=== PATIENT | male | born 1960 | race American Indian/Alaskan Native ===

== ENCOUNTER 2016-07-22 16:34 | Emergency (ER) | payer MEDICARE, MEDICAID ==
[2016-07-22 16:50] VITALS: BP 130/80
[2016-07-22] MEDS ORDERED: Lidocaine 1% 30 ML SDV INJECT ONE (16:52)
[2016-07-22] MEDS ORDERED: Bacitracin Oint 1 GM U/D Packet TOP ONE (16:52)
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
== END 2016-07-22 17:36 | disposition home or self-care (01) ==
LOC: DL.ED 16:34
DX: S61.411A Laceration without foreign body of right hand, initial encounter (principal); E78.00 Pure hypercholesterolemia, unspecified; I10 Essential (primary) hypertension; F41.9 Anxiety disorder, unspecified; E03.9 Hypothyroidism, unspecified; Z79.899 Other long term (current) drug therapy; E66.9 Obesity, unspecified; Z88.8 Allergy status to other drugs, medicaments and biological substances; Y04.0XXA Assault by unarmed brawl or fight, initial encounter
CPT/HCPCS: 12001; 99282

== ENCOUNTER 2017-02-17 09:04 | Inpatient (IN) | payer MEDICARE, MEDICAID ==
[2017-02-17] MEDS: Sodium Chloride 0.9% 10 ML Syringe FLUSH PRN (09:22)
--- NOTE | 2017-02-17 09:38 | EDM.PDOC ---
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 Staff states yesterday he had some nausea and vomiting. He has had a cough, and fever today. Patient has a history of blood clots and takes Xarelto daily. Onset: Gradual Onset Date: 02/16/17 Location: Reports: Chest Quality: Reports: Dull Severity: Mild Improves with: Reports: None Worsens with: Reports: None Associated Symptoms: Reports: Fever/Chills, Nausea/Vomiting, Shortness of Breath - Related Data Allergies Allergy/AdvReac Type Severity Reaction Status Date / Time cefprozil [From Cefzil] Allergy Cannot Verified 07/22/16 17:26 Remember Cephalosporins Allergy Cannot Verified 07/22/16 17:26 Remember haloperidol [From Haldol] Allergy Cannot Verified 07/22/16 17:26 Remember haloperidol lactate Allergy Cannot Verified 07/22/16 17:26 [From Haldol] Remember Home Meds: Home Meds LORazepam [Ativan] 0.5 mg PO BID 11/06/13 [History] Levothyroxine [Synthroid] 100 mcg PO DAILY 11/06/13 [History] OLANZapine [ZyPREXA Zydis] 10 mg PO BEDTIME 11/06/13 [History] atorvaSTATin [Lipitor] 10 mg PO BEDTIME 11/06/13 [History] levETIRAcetam [Keppra] 1,000 mg PO BID 11/06/13 [History] levOCARNitine [l-Carnitine] 500 mg PO DAILY 11/06/13 [History] Rivaroxaban [Xarelto] 20 mg PO DAILY #30 tablet 06/12/14 [Rx] Escitalopram [Lexapro] 1 tab PO BEDTIME 07/22/16 [History] Fluticasone Propionate [Flonase] 1 spray INH ASDIRECTED PRN 07/22/16 [History] metFORMIN HCl [Metformin HCl] 1 tab PO BID 07/22/16 [History] Methylcellulose [Citrucel SF] 1 tbsp PO DAILY 02/17/17 [History] Past Medical History HEENT History: Reports: Other (See Below) Other HEENT History: presbyopia Cardiovascular History: Reports: High Cholesterol, Hypertension Respiratory History: Reports: PE, Sleep Apnea Neurological History: Reports: Seizure, Other (See Below) Psychiatric History: Reports: Anxiety, Other (See Below) Other Psychiatric History: disruptive behavior disorder Endocrine/Metabolic History: Reports: Hypothyroidism, Obesity/BMI 30+ Social & Family History - Family History Family Medical History: Unobtainable - Tobacco Use Smoking Status *Q: Never Smoker Second Hand Smoke Exposure: No - Caffeine Use Caffeine Use: Reports: Coffee, Soda - Alcohol Use Days Per Week of Alcohol Use: 0 - Recreational Drug Use Recreational Drug Use: No - Living Situation & Occupation Living situation: Reports: Single, Extended Care Facility Occupation: Disabled ED ROS GENERAL - Review of Systems Review Of Systems: ROS reveals no pertinent complaints other than HPI. ED EXAM, GENERAL - Physical Exam Exam: See Below Exam Limited By: No Limitations General Appearance: Alert, WD/WN, No Apparent Distress Eye Exam: Bilateral Eye: Normal Inspection Ears: Normal External Exam, Hearing Grossly Normal Nose: Normal Inspection Throat/Mouth: Normal Inspection, Normal Voice, No Airway Compromise Head: Atraumatic, Normocephalic Neck: Normal Inspection, Supple, Non-Tender, Full Range of Motion Respiratory/Chest: No Respiratory Distress, Lungs Clear, Normal Breath Sounds, No Accessory Muscle Use Cardiovascular: Normal Peripheral Pulses, Regular Rate, Rhythm, No Edema, No Gallop, No JVD, No Murmur, No Rub Peripheral Pulses: 2+: Radial (L), Radial (R) GI/Abdominal: Normal Bowel Sounds, Soft, Non-Tender, No Organomegaly, No Distention, No Abnormal Bruit, No Mass (Male) Exam: Deferred Rectal (Males) Exam: Deferred Back Exam: Normal Inspection, Full Range of Motion Extremities: Normal Inspection, Normal Range of Motion, Non-Tender, No Pedal Edema, Normal Capillary Refill Neurological: Alert, Oriented, Normal Cognition, Normal Gait, No Motor/Sensory Deficits Psychiatric: Normal Mood, Flat Affect Skin Exam: Warm, Dry, Intact, Normal Color, No Rash Lymphatic: No Adenopathy EKG INTERPRETATION Rhythm: NSR [place]: Normal P-Wave: Present QRS: Normal ST-T: Normal QT: Normal Comparison: NA - No Prior EKG Course - Vital Signs Last Recorded V/S: Last Vital Signs Temp 100.2 F 02/17/17 10:26 Pulse 102 H 02/17/17 09:05 Resp 32 H 02/17/17 09:05 BP 120/79 02/17/17 09:05 Pulse Ox 91 L 02/17/17 09:05 - Orders/Labs/Meds Orders: Active Orders 24 hr Category Date Time Status EKG Documentation Completion [RC] STAT Care 02/17/17 09:17 Active Peripheral IV Care [RC] . DIRECTED Care 02/17/17 09:17 Active Chest 2V [CR] Urgent Exams 02/17/17 09:17 Taken UA W/MICROSCOPIC [URIN] Stat Lab 02/17/17 09:17 Uncollected Levofloxacin/Dextrose 5%-Water [Levaquin in D5W 750 MG/ Med 02/17/17 10:09 Active 150 ML] 750 mg Premix Bag 1 bag IV ONETIME Sodium Chloride 0.9% [Saline Flush] Med 02/17/17 09:16 Active 10 ml FLUSH ASDIRECTED PRN Peripheral IV Insertion Adult [OM.PC] Stat Oth 02/17/17 09:16 Ordered Medication Orders Levofloxacin/Dextrose 750 mg/ (Premix) 150 mls @ 100 mls/hr IV ONETIME ONE Stop: 02/17/17 11:38 Last Admin: 02/17/17 10:28 Dose: 100 mls/hr Sodium Chloride (Saline Flush) 10 ml FLUSH ASDIRECTED PRN PRN Reason: Keep Vein Open Last Admin: 02/17/17 09:22 Dose: 10 ml Labs: Laboratory Tests 02/17/17 02/17/17 02/17/17 Range/Units 09:22 09:22 09:22 WBC 12.8 H (5.0-10.0) 10^3/uL RBC 5.21 (4.6-6.2) 10^6/uL Hgb 16.2 (14.0-18.0) g/dL Hct 47.2 (40.0-54.0) % MCV 90.6 D (80-100) fL MCH 31.1 (27.0-34.0) pg MCHC 34.3 (33.0-35.0) g/dL Plt Count 163 (150-450) 10^3/uL Neut % (Auto) 83.5 H (42.2-75.2) % Lymph % (Auto) 8.8 L (20.5-50.1) % [place] % (Auto) 7.4 (2-8) % Eos % (Auto) 0.1 L (1.0-3.0) % Baso % (Auto) 0.2 (0.0-1.0) % D-Dimer, Quantitative (0-400) ng/mL Sodium 135 (135-145) mmol/L Potassium 3.8 (3.6-5.0) mmol/L Chloride 103 (101-111) mmol/L Carbon Dioxide 21.0 (21.0-31.0) mmol/L Anion Gap 14.8 BUN 26 H (7-18) mg/dL Creatinine 1.0 (0.6-1.3) mg/dL Est Cr Clr Drug Dosing 82.48 mL/min Estimated GFR (MDRD) > 60 BUN/Creatinine Ratio 26.00 Glucose 169 H (74-105) mg/dL Lactic Acid 1.3 (0.5-2.2) mmol/L Calcium 8.7 (8.4-10.2) mg/dl Total Bilirubin 1.2 H (0.2-1.0) mg/dL AST 28 (10-42) IU/L ALT 29 (10-60) IU/L Alkaline Phosphatase 66 (42-121) IU/L Troponin I < 0.02 (0.00-0.02) ng/ml Total Protein 7.4 (6.7-8.2) g/dl Albumin 4.2 (3.2-5.5) g/dl Globulin 3.2 Albumin/Globulin Ratio 1.31 02/17/17 Range/Units 09:22 WBC (5.0-10.0) 10^3/uL RBC (4.6-6.2) 10^6/uL Hgb (14.0-18.0) g/dL Hct (40.0-54.0) % MCV (80-100) fL MCH (27.0-34.0) pg MCHC (33.0-35.0) g/dL Plt Count (150-450) 10^3/uL Neut % (Auto) (42.2-75.2) % Lymph % (Auto) (20.5-50.1) % [place] % (Auto) (2-8) % Eos % (Auto) (1.0-3.0) % Baso % (Auto) (0.0-1.0) % D-Dimer, Quantitative 179 (0-400) ng/mL Sodium (135-145) mmol/L Potassium (3.6-5.0) mmol/L Chloride (101-111) mmol/L Carbon Dioxide (21.0-31.0) mmol/L Anion Gap BUN (7-18) mg/dL Creatinine (0.6-1.3) mg/dL Est Cr Clr Drug Dosing mL/min Estimated GFR (MDRD) BUN/Creatinine Ratio Glucose (74-105) mg/dL Lactic Acid (0.5-2.2) mmol/L Calcium (8.4-10.2) mg/dl Total Bilirubin (0.2-1.0) mg/dL AST (10-42) IU/L ALT (10-60) IU/L Alkaline Phosphatase (42-121) IU/L Troponin I (0.00-0.02) ng/ml Total Protein (6.7-8.2) g/dl Albumin (3.2-5.5) g/dl Globulin Albumin/Globulin Ratio Meds: Medications Generic Name Dose Route Start Last Admin Trade Name Freq PRN Reason Stop Dose Admin Levofloxacin/Dextrose 750 mg/ 150 mls @ 100 mls/hr 02/17/17 10:09 02/17/17 10 :28 Premix IV 02/17/17 11:38 100 mls/hr ONETIME ONE Administration Sodium Chloride 10 ml 02/17/17 09:16 02/17/17 09:22 Saline Flush FLUSH 10 ml ASDIRECTED PRN Administration Keep Vein Open - Radiology Interpretation Free Text/Narrative:: Chest xray: RLL pneumonia See rad report - Re-Assessments/Exams Free Text/Narrative Re-Assessment/Exam: 02/17/17 11:01 Discussed patient case with Dr. Haque. He agreed to admit the patient to inpatient medical floor for pneumonia. Departure - Departure Time of Disposition: 10:45 Disposition: Admitted As Inpatient 66 Condition: Fair Clinical Impression: Pneumonia Qualifiers: Pneumonia type: due to unspecified organism Laterality: right Lung location: lower lobe of lung Qualified Code(s): J18.1 - Lobar pneumonia, unspecified organism Forms: ED Department Discharge Additional Instructions: RX: Levaquin Follow up with your primary care facility next week - My Orders Last 24 Hours: My Active Orders 02/17/17 09:16 Sodium Chloride 0.9% [Saline Flush] 10 ml FLUSH ASDIRECTED PRN Peripheral IV Insertion Adult [OM.PC] Stat 02/17/17 09:17 EKG Documentation Completion [RC] STAT Peripheral IV Care [RC] . DIRECTED Chest 2V [CR] Urgent UA W/MICROSCOPIC [URIN] Stat 02/17/17 10:09 Levofloxacin/Dextrose 5%-Water [Levaquin in D5W 750 MG/150 ML] 750 mg Premix Bag 1 bag IV ONETIME - Assessment/Plan Last 24 Hours: My Active Orders 02/17/17 09:16 Sodium Chloride 0.9% [Saline Flush] 10 ml FLUSH ASDIRECTED PRN Peripheral IV Insertion Adult [OM.PC] Stat 02/17/17 09:17 EKG Documentation Completion [RC] STAT Peripheral IV Care [RC] . DIRECTED Chest 2V [CR] Urgent UA W/MICROSCOPIC [URIN] Stat 02/17/17 10:09 Levofloxacin/Dextrose 5%-Water [Levaquin in D5W 750 MG/150 ML] 750 mg Premix Bag 1 bag IV ONETIME
[2017-02-17 09:49] LABS: CHLORIDE,CL 103 mmol/L (101-111); SODIUM,NA 135 mmol/L (135-145)
[2017-02-17] MEDS ORDERED: Levofloxacin/Dextrose 5%-Water 750 MG in Premix Bag 1 BAG IV ONE (10:09)
--- NOTE | 2017-02-17 11:02 | CR ---
Clinical history: 56-year-old male chest pain and shortness of breath. Interpretation: Abnormal. Remarkably poor inspiratory effort with chronic crowding (atelectasis) lung markings both bases and s ubtle pleural parenchymal scarring right costophrenic sulcus that was evident on previous CT chest ex am 18 February 2012 i.e. unchanged..... (Infrahilar infiltrate on the right also present on earlier exam) Old healed fracture deformity rig ht clavicle. Normal cardiac silhouette without cephalization of vascular flow, signs of alveolar edema or dependen t pleural effusion. No new lung mass, hilar lymphadenopathy or focal lobar pneumonia. No new lobar collapse. No pneumothorax.
[2017-02-17] MEDS ORDERED: Morphine 2 MG/ML Syringe IVPUSH PRN (11:23)
[2017-02-17] MEDS ORDERED: Albuterol 0.083% 2.5 MG/3 ML Neb Soln NEB PRN (11:23)
[2017-02-17] MEDS ORDERED: Zolpidem 5 MG Tab PO PRN (11:23)
[2017-02-17] MEDS ORDERED: Magnesium Hydroxide 400 MG/5 ML Susp 30 ML Cup PO PRN (11:23)
[2017-02-17] MEDS ORDERED: Ondansetron 4 MG/2 ML SDV IVPUSH PRN (11:23)
[2017-02-17] MEDS ORDERED: Acetaminophen 325 MG Tab PO PRN (11:23)
[2017-02-17] MEDS ORDERED: Polyethylene Glycol 3350 Powder 17 GM Packet PO PRN (11:23)
[2017-02-17] MEDS ORDERED: Sodium Chloride 0.9% 1,000 ML IV ONE (11:30)
--- NOTE | 2017-02-17 11:49 | PCM.HP ---
H&P History of Present Illness - General Date of Service: 02/17/17 Admit Problem/Dx: Admission Diagnosis/Problem Admission Diagnosis/Problem Shortness of breath Source of Information: Patient - History of Present Illness Initial Comments - Free Text/Narative: 56-year-old male with the past medical history of seizure disorder, DVT, hypertension, hypothyroidism, obstructive sleep apnea, diverticulosis, mental retardation presents to the emergency room with caregiver for having nausea and vomiting started yesterday morning. He reported chest pain one time after the vomiting yesterday at 1 PM. No more chest pain. He had some cough. He also reported some stomach pain this morning. The history is basic and patient is not reliable. His not oriented to place or time however he is not in acute distress and he is pleasant. However patient and caregiver denies shortness breath, upper respiratory symptoms, urinary symptoms, lower extremity edema, unilateral weakness/numbness/tingling, any other symptoms or concerns. WBC 12.8. D-dimer 179. Potassium 3.8. Creatinine 1.0. Blood glucose 169. Lactic acid 1.3. Total bilirubin 1.2. AST, ALP, alkaline phosphatase because of normal. Troponin is normal. EKG EKG did not show ST segment or T-wave status changes. Chest x-ray is concerning for infiltrate - Related Data Allergies/Adverse Reactions: Allergies Allergy/AdvReac Type Severity Reaction Status Date / Time cefprozil [From Cefzil] Allergy Cannot Verified 02/17/17 11:28 Remember Cephalosporins Allergy Cannot Verified 02/17/17 11:28 Remember haloperidol [From Haldol] Allergy Cannot Verified 02/17/17 11:28 Remember haloperidol lactate Allergy Cannot Verified 02/17/17 11:28 [From Haldol] Remember Home Medications: Home Meds LORazepam [Ativan] 0.5 mg PO BID 11/06/13 [History] Levothyroxine [Synthroid] 100 mcg PO DAILY 11/06/13 [History] OLANZapine [ZyPREXA Zydis] 10 mg PO BEDTIME 11/06/13 [History] atorvaSTATin [Lipitor] 10 mg PO BEDTIME 11/06/13 [History] levETIRAcetam [Keppra] 1,000 mg PO BID 11/06/13 [History] levOCARNitine [l-Carnitine] 500 mg PO DAILY 11/06/13 [History] Rivaroxaban [Xarelto] 20 mg PO DAILY #30 tablet 06/12/14 [Rx] Escitalopram [Lexapro] 1 tab PO BEDTIME 07/22/16 [History] Fluticasone Propionate [Flonase] 1 spray INH ASDIRECTED PRN 07/22/16 [History] metFORMIN HCl [Metformin HCl] 1 tab PO BID 07/22/16 [History] Methylcellulose [Citrucel SF] 1 tbsp PO DAILY 02/17/17 [History] Past Medical History HEENT History: Reports: Other (See Below) Other HEENT History: presbyopia Cardiovascular History: Reports: High Cholesterol, Hypertension Respiratory History: Reports: PE, Sleep Apnea Neurological History: Reports: Seizure, Other (See Below) Psychiatric History: Reports: Anxiety, Other (See Below) Other Psychiatric History: disruptive behavior disorder Endocrine/Metabolic History: Reports: Hypothyroidism, Obesity/BMI 30+ Social & Family History - Family History Family Medical History: Unobtainable - Tobacco Use Smoking Status *Q: Never Smoker Second Hand Smoke Exposure: No - Caffeine Use Caffeine Use: Reports: Coffee, Soda - Alcohol Use Days Per Week of Alcohol Use: 0 - Recreational Drug Use Recreational Drug Use: No - Living Situation & Occupation Living situation: Reports: Single, Extended Care Facility Occupation: Disabled H&P Review of Systems - Review of Systems: Review Of Systems: ROS reveals no pertinent complaints other than HPI. Exam - Exam Exam: See Below - Vital Signs Vital Signs: Last Vital Signs Temp 37.6 C 02/17/17 11:27 Pulse 93 02/17/17 11:27 Resp 20 02/17/17 11:27 BP 121/72 02/17/17 11:27 Pulse Ox 96 02/17/17 11:27 Weight: 99.79 kg - Exam General: Alert, Cooperative. No: Mild Distress, Moderate Distress, Severe Distress, Sedated, Lethargic, Obtunded HEENT: Conjunctiva Clear, EACs Clear, EOMI, Hearing Intact, Mucosa Moist & [place] , Nares Patent, Normal Nasal Septum, Posterior Pharynx Clear, Pupils Reactive, TMs Clear Neck: Supple, Trachea Midline Lungs: Decreased Breath Sounds (Globally). No: Crackles, Rhonchi, Rub, Stridor , Wheezing Cardiovascular: Regular Rate, Regular Rhythm GI/Abdominal Exam: Normal Bowel Sounds, Soft, Non-Tender, No Organomegaly, No Distention, No Abnormal Bruit, No Mass (Male) Exam: Deferred Rectal (Males) Exam: Deferred Back Exam: Normal Inspection, Full Range of Motion. No: CVA Tenderness (L), CVA Tenderness (R) Extremities: Normal Inspection, Normal Range of Motion, Non-Tender, No Pedal Edema, Normal Capillary Refill Skin: Dry, Intact. No: Rash, Wound Neurological: Cranial Nerves Intact, Strength Equal Bilateral, Normal Speech Neuro Extensive - Mental Status: Alert, Normal Mood/Affect. No: Normal Cognition Neuro Extensive - Motor, Sensory, Reflexes: CN II-XII Intact Psychiatric: Alert, Normal Mood - Patient Data Result Diagrams: 02/17/17 09:22 02/17/17 09:22 *Q Meaningful Use (ADM) - VTE *Q VTE Criteria *Q: - Stroke *Q Stroke Criteria *Q: - AMI *Q AMI Criteria *Q: - Problem List (1) Diarrhea SNOMED Code(s): 08448588 ICD Code: R19.7 - DIARRHEA, UNSPECIFIED Status: Acute Current Visit: Yes (2) Nausea and vomiting SNOMED Code(s): 51491212 ICD Code: R11.2 - NAUSEA WITH VOMITING, UNSPECIFIED Status: Acute Current Visit: Yes (3) Pneumonia SNOMED Code(s): 246249125 ICD Code: J18.9 - PNEUMONIA, UNSPECIFIED ORGANISM Status: Acute Current Visit: Yes Qualifiers: Pneumonia type: due to unspecified organism Laterality: right Lung location: lower lobe of lung Qualified Code(s): J18.1 - Lobar pneumonia, unspecified organism (4) Hypothyroidism SNOMED Code(s): 90181342 ICD Code: E03.9 - HYPOTHYROIDISM, UNSPECIFIED Status: Chronic Current Visit: No (5) Mental retardation SNOMED Code(s): 19562061 ICD Code: F79 - UNSPECIFIED INTELLECTUAL DISABILITIES Status: Acute Current Visit: No (6) Seizure disorder SNOMED Code(s): 066084286 ICD Code: G40.909 - EPILEPSY, UNSP, NOT INTRACTABLE, WITHOUT STATUS EPILEPTICUS Status: Chronic Current Visit: No Problem List Initiated/Reviewed/Updated: Yes Orders Last 24hrs: Active Orders 24 hr Category Date Time Status Patient Status [ADT] Routine ADT 02/17/17 11:23 Active Height and Weight [RC] DAILY Care 02/17/17 11:23 Active Intake and Output [RC] Q6H Care 02/17/17 11:24 Active Notify Provider Vital Signs [RC] ASDIRECTED Care 02/17/17 11:24 Active Oxygen Therapy [RC] PRN Care 02/17/17 11:23 Active RT Aerosol Therapy [RC] ASDIRECTED Care 02/17/17 11:26 Active Up ad Mary [RC] ASDIRECTED Care 02/17/17 11:23 Active VTE/DVT Education [RC] PER UNIT ROUTINE Care 02/17/17 11:23 Active Vital Signs [RC] Q4H Care 02/17/17 11:23 Active Consistent Carbohydrate Diet [DIET] Diet 02/17/17 Breakfast Active C DIFFICILE TOXIN BY PCR [MREF] Routine Lab 02/17/17 11:39 Uncollected C-REACTIVE PROTEIN [CHEM] Routine Lab 02/17/17 09:22 Received CBC WITH AUTO DIFF [HEME] AM Lab 02/18/17 05:11 Ordered COMPREHENSIVE METABOLIC PN,CMP [CHEM] AM Lab 02/18/17 05:11 Ordered CULTURE BLOOD [BC] Stat Lab 02/17/17 11:30 Ordered CULTURE BLOOD [BC] Stat Lab 02/17/17 11:30 Ordered CULTURE SPUTUM + SMEAR [RM] Stat Lab 02/17/17 11:23 Uncollected CULTURE STOOL [RM] Routine Lab 02/17/17 11:38 Uncollected CULTURE URINE [RM] Routine Lab 02/17/17 11:39 Uncollected URINALYSIS W/MICROSCOPIC [UA W/MICROSCOPIC] [URIN] Lab 02/17/17 11:39 Uncollected Routine Acetaminophen [Tylenol] Med 02/17/17 11:23 Ordered 650 mg PO Q4H PRN Albuterol [Proventil Neb Soln] Med 02/17/17 11:23 Ordered 2.5 mg NEB Q2H PRN Albuterol/Ipratropium [DuoNeb 3.0-0.5 MG/3 ML] Med 02/17/17 11:30 Ordered 3 ml NEB Q6H Levofloxacin/Dextrose 5%-Water [Levaquin in D5W 750 MG/ Med 02/18/17 11:45 Ordered 150 ML] 750 mg Premix Bag 1 bag IV Q24H Magnesium Hydroxide [Milk of Magnesia] Med 02/17/17 11:23 Ordered 30 ml PO Q12H PRN Morphine Med 02/17/17 11:23 Ordered 2 mg IVPUSH Q2H PRN Ondansetron [Zofran] Med 02/17/17 11:23 Ordered 4 mg IVPUSH Q6H PRN Polyethylene Glycol 3350 [MiraLAX] Med 02/17/17 11:23 Ordered 17 gm PO DAILY PRN Sodium Chloride 0.9% [Normal Saline] 1,000 ml Med 02/17/17 11:30 Ordered IV .BOLUS Sodium Chloride 0.9% [Normal Saline] 1,000 ml Med 02/17/17 11:30 Ordered IV ASDIRECTED Zolpidem [Ambien] Med 02/17/17 11:23 Ordered 5 mg PO BEDTIME PRN Blood Culture x2 Reflex Set [OM.PC] Stat Oth 02/17/17 11:23 Ordered Resuscitation Status Routine Resus Stat 02/17/17 11:23 Ordered Medication Orders Acetaminophen (Tylenol) 650 mg PO Q4H PRN PRN Reason: Pain (Mild 1-3)/fever Albuterol (Proventil Neb Soln) 2.5 mg NEB Q2H PRN PRN Reason: shortness of breath/wheezing Albuterol/Ipratropium (Duoneb 3.0-0.5 Mg/3 Ml) 3 ml NEB Q6H DOE Levofloxacin/Dextrose 750 mg/ (Premix) 150 mls @ 100 mls/hr IV Q24H DOE Sodium Chloride (Normal Saline) 1,000 mls @ 100 mls/hr IV ASDIRECTED DOE Stop: 02/18/17 21:29 Sodium Chloride (Normal Saline) 1,000 mls @ 999 mls/hr IV .BOLUS DOE Magnesium Hydroxide (Milk Of Magnesia) 30 ml PO Q12H PRN PRN Reason: Constipation Morphine Sulfate (Morphine) 2 mg IVPUSH Q2H PRN PRN Reason: Pain (severe 7-10) Ondansetron HCl (Zofran) 4 mg IVPUSH Q6H PRN PRN Reason: Nausea/Vomiting Polyethylene Glycol (Miralax) 17 gm PO DAILY PRN PRN Reason: Constipation Sodium Chloride (Saline Flush) 10 ml FLUSH ASDIRECTED PRN PRN Reason: Keep Vein Open Last Admin: 02/17/17 09:22 Dose: 10 ml Zolpidem Tartrate (Ambien) 5 mg PO BEDTIME PRN PRN Reason: Sleep Assessment/Plan Comment:: Impression 35-[id number]-year-old male with the entire*dictation and above comorbidities presented with nausea, vomiting, diarrhea and possible chest pain and abdominal pain. His WBC and heart rate are elevated. Patient received influenza vaccine this year Probable pneumonia with sepsis 1 L of normal saline as a bolus followed by 2 L of normal saline at 100 mL per hour -Levaquin was started in the emergency room. We'll continue Levaquin -DuoNeb every 6 hours -Ordered CRP, blood cultures, sputum culture, UA, urine culture -Check influenza Possible gastroenteritis IV fluid as above -Ordered stool culture and C. difficile -If symptoms progress we'll order CAT scan of abdomen and pelvis History of seizure disorder Continue his home anticonvulsant History of DVT Continued Yennifer I spoke to his sister Leobardo Archer over miguel angel phone and discussed the plan of care with her. She agreed with plan. she wanted him to be full code
[2017-02-17] MEDS ORDERED: Fluticasone Propionate Nasal Spray 16 GM Bottle NASBOTH PRN ×3 (11:55→12:51)
[2017-02-17] MEDS: Sodium Chloride 0.9% 1,000 ML IV SCH (14:14)
[2017-02-17] MEDS: Albuterol/Ipratropium 3.0-0.5 MG/3 ML Neb Soln NEB SCH ×2 (14:55→18:27)
[2017-02-17] MEDS: metFORMIN 500 MG Tab PO SCH (18:27)
[2017-02-17] MEDS: Escitalopram 10 MG Tab PO SCH (20:16)
[2017-02-17] MEDS: levETIRAcetam 500 MG Tab PO SCH (20:16)
[2017-02-17] MEDS: atorvaSTATin 10 MG Tab PO SCH (20:16)
[2017-02-17] MEDS: LORazepam 0.5 MG Tab PO SCH (20:17)
[2017-02-17] MEDS: OLANZAPINE 10 MG PO SCH (20:29)
[2017-02-18] MEDS: Sodium Chloride 0.9% 1,000 ML IV SCH (00:02)
[2017-02-18] MEDS: Albuterol/Ipratropium 3.0-0.5 MG/3 ML Neb Soln NEB SCH ×4 (00:38→17:42)
[2017-02-18] MEDS: Levothyroxine 100 MCG Tab PO SCH (05:44)
[2017-02-18 06:36] LABS: CHLORIDE,CL 107 mmol/L (101-111); SODIUM,NA 140 mmol/L (135-145)
[2017-02-18] MEDS: LORazepam 0.5 MG Tab PO SCH ×2 (08:03→20:44)
[2017-02-18] MEDS: Methylcellulose Powder 479 GM Jar PO SCH (08:03)
[2017-02-18] MEDS: metFORMIN 500 MG Tab PO SCH ×2 (08:03→17:42)
[2017-02-18] MEDS: levETIRAcetam 500 MG Tab PO SCH ×2 (08:03→20:41)
--- NOTE | 2017-02-18 08:03 | PCM.PN ---
- General Info Date of Service: 02/18/17 Admission Dx/Problem (Free Text): Admission Diagnosis/Problem Admission Diagnosis/Problem Shortness of breath Subjective Update: Gianni stated that he is feeling better. Nurse reported occasional nonproductive cough at night. He is still requiring 2 L of oxygen to keep his sats 93-95%. He does not use home oxygen. He was complaining of left knee pain but is better. Overnight he denies nausea, vomiting, diarrhea, abdominal pain, any other symptoms or concern. Nurse reported no bowel movement for emesis since admission. - Patient Data Vitals - Most Recent: Last Vital Signs Temp 36.9 C 02/18/17 07:00 Pulse 89 02/18/17 07:00 Resp 20 02/18/17 07:00 BP 125/78 02/18/17 07:00 Pulse Ox 96 02/18/17 07:00 Weight - Most Recent: 105.415 kg I&O - Last 24 Hours: Intake & Output 02/17/17 02/18/17 02/18/17 22:59 06:59 14:59 Intake Total 2592 Output Total 800 1030 Balance -800 1562 Lab Results Last 24 Hours: Laboratory Results - last 24 hr 02/17/17 02/18/17 02/18/17 Range/Units 16:10 06:05 06:05 WBC 6.0 (5.0-10.0) 10^3/uL RBC 4.67 (4.6-6.2) 10^6/uL Hgb 14.4 D (14.0-18.0) g/dL Hct 43.6 (40.0-54.0) % MCV 93.4 (80-100) fL MCH 30.8 (27.0-34.0) pg MCHC 33.0 (33.0-35.0) g/dL Plt Count 140 L (150-450) 10^3/uL Neut % (Auto) 68.0 (42.2-75.2) % Lymph % (Auto) 18.2 L (20.5-50.1) % [place] % (Auto) 12.1 H (2-8) % Eos % (Auto) 1.5 (1.0-3.0) % Baso % (Auto) 0.2 (0.0-1.0) % Sodium 140 (135-145) mmol/L Potassium 3.7 (3.6-5.0) mmol/L Chloride 107 (101-111) mmol/L Carbon Dioxide 26.0 (21.0-31.0) mmol/L Anion Gap 10.7 BUN 13 (7-18) mg/dL Creatinine 0.7 (0.6-1.3) mg/dL Est Cr Clr Drug Dosing 117.83 mL/min Estimated GFR (MDRD) > 60 BUN/Creatinine Ratio 18.57 Glucose 129 H (74-105) mg/dL Calcium 7.9 L (8.4-10.2) mg/dl Total Bilirubin 0.7 (0.2-1.0) mg/dL AST 22 (10-42) IU/L ALT 23 (10-60) IU/L Alkaline Phosphatase 52 (42-121) IU/L Total Protein 6.5 L (6.7-8.2) g/dl Albumin 3.5 (3.2-5.5) g/dl Globulin 3.0 Albumin/Globulin Ratio 1.17 Urine Color Yellow (YELLOW) Urine Appearance Clear (CLEAR) Urine pH 5.5 (5.0-9.0) Ur Specific [place] 1.010 (1.005-1.030) Urine Protein Negative (NEGATIVE) Urine Glucose (UA) Negative (NEGATIVE) Urine Ketones Negative (NEGATIVE) Urine Occult Blood Negative (NEGATIVE) Urine Nitrite Negative (NEGATIVE) Urine Bilirubin Negative (NEGATIVE) Urine Urobilinogen 0.2 (0.2-1.0) mg/dL Ur Leukocyte Esterase Negative (NEGATIVE) Urine RBC Not seen /HPF Urine WBC 0-5 (0-5/HPF) /HPF Ur Epithelial Cells Rare /HPF Urine Bacteria Rare (0-FEW/HPF) /HPF Simeon Results Last 24 Hours: Microbiology 02/17/17 12:01 Influenza Type A Antigen Screen - Final Nasopharyngeal Swab - Nare, Left NEGATIVE INFLUENZA A VIRUS AG Influenza Type B Antigen Screen - Final NEGATIVE INFLUENZA B VIRUS AG Med Orders - Current: Current Medications Acetaminophen (Tylenol) 650 mg PO Q4H PRN PRN Reason: Pain (Mild 1-3)/fever Albuterol (Proventil Neb Soln) 2.5 mg NEB Q2H PRN PRN Reason: shortness of breath/wheezing Albuterol/Ipratropium (Duoneb 3.0-0.5 Mg/3 Ml) 3 ml NEB Q6HRRT [facility] Last Admin: 02/18/17 06:31 Dose: 3 ml Atorvastatin Calcium (Lipitor) 10 mg PO BEDTIME [facility] Last Admin: 02/17/17 20:16 Dose: 10 mg Escitalopram Oxalate (Lexapro) 10 mg PO BEDTIME [facility] Last Admin: 02/17/17 20:16 Dose: 10 mg Levofloxacin/Dextrose 750 mg/ (Premix) 150 mls @ 100 mls/hr IV Q24H [facility] Sodium Chloride (Normal Saline) 1,000 mls @ 100 mls/hr IV ASDIRECTED [facility] Stop: 02/18/17 21:29 Last Admin: 02/18/17 00:02 Dose: 100 mls/hr Levetiracetam (Keppra) 1,000 mg PO BID [facility] Last Admin: 02/17/17 20:16 Dose: 1,000 mg Levothyroxine Sodium (Synthroid) 100 mcg PO ACBRK [facility] Last Admin: 02/18/17 05:44 Dose: 100 mcg Lorazepam (Ativan) 0.5 mg PO BID [facility] Last Admin: 02/17/17 20:17 Dose: 0.5 mg Magnesium Hydroxide (Milk Of Magnesia) 30 ml PO Q12H PRN PRN Reason: Constipation Metformin HCl (Glucophage) 500 mg PO BIDMEALS [facility] Last Admin: 02/17/17 18:27 Dose: 500 mg Methylcellulose (Citrucel Sf) 0 gm PO DAILY [facility] Morphine Sulfate (Morphine) 2 mg IVPUSH Q2H PRN PRN Reason: Pain (severe 7-10) Olanzapine [Zyprexa Zydis] 10 Mg Own Med 10 mg PO BEDTIME [facility] Last Admin: 02/17/17 20:29 Dose: 10 mg Rivaroxaban [Xarelto ] 20 Mg Tab Own Med 20 mg PO WITHDINNER [facility] Ondansetron HCl (Zofran) 4 mg IVPUSH Q6H PRN PRN Reason: Nausea/Vomiting Polyethylene Glycol (Miralax) 17 gm PO DAILY PRN PRN Reason: Constipation Sodium Chloride (Saline Flush) 10 ml FLUSH ASDIRECTED PRN PRN Reason: Keep Vein Open Last Admin: 02/17/17 09:22 Dose: 10 ml Zolpidem Tartrate (Ambien) 5 mg PO BEDTIME PRN PRN Reason: Sleep Discontinued Medications Fluticasone Propionate (Flonase) gm NASBOTH ASDIRECTED PRN PRN Reason: Congestion Fluticasone Propionate (Flonase) 0.1 gm NASBOTH ASDIRECTED PRN PRN Reason: Congestion Fluticasone Propionate (Flonase) 0.3 gm NASBOTH ASDIRECTED PRN PRN Reason: Congestion Levofloxacin/Dextrose 750 mg/ (Premix) 150 mls @ 100 mls/hr IV ONETIME ONE Stop: 02/17/17 11:38 Last Admin: 02/17/17 10:28 Dose: 100 mls/hr Sodium Chloride (Normal Saline) 1,000 mls @ 999 mls/hr IV .BOLUS ONE Stop: 02/17/17 12:30 Last Admin: 02/17/17 12:33 Dose: 999 mls/hr - Exam General: Alert, Cooperative, No Acute Distress, Other (He is pleasant and not confused. He looks better today.) HEENT: Pupils Equal, Pupils Reactive, EOMI, Mucous Membr. Moist/[place] Neck: Supple, Trachea Midline, No JVD Lungs: Normal Respiratory Effort, Decreased Breath Sounds (Mildly globally). No : Crackles, Rales, Rhonchi, Rub, Stridor, Wheezing Cardiovascular: Regular Rate, Regular Rhythm GI/Abdominal Exam: Normal Bowel Sounds, Soft, Non-Tender, No Organomegaly, No Distention, No Abnormal Bruit, No Mass (Male) Exam: Deferred Back Exam: Normal Inspection, Full Range of Motion. No: CVA Tenderness (L), CVA Tenderness (R) Extremities: Normal Inspection, Normal Range of Motion, Non-Tender, No Pedal Edema, Normal Capillary Refill, Other (Knee exam: No swelling, erythema, effusion, tenderness, or laxity bilaterally) Skin: Dry, Intact. No: Rash Neurological: No New Focal Deficit Psy/Mental Status: Alert, Normal Affect, Normal Mood - Problem List & Annotations (1) Diarrhea SNOMED Code(s): 19458611 Code(s): R19.7 - DIARRHEA, UNSPECIFIED Status: Acute Current Visit: Yes (2) Nausea and vomiting SNOMED Code(s): 48731820 Code(s): R11.2 - NAUSEA WITH VOMITING, UNSPECIFIED Status: Acute Current Visit: Yes (3) Pneumonia SNOMED Code(s): 754899433 Code(s): J18.9 - PNEUMONIA, UNSPECIFIED ORGANISM Status: Acute Current Visit: Yes Qualifiers: Pneumonia type: due to unspecified organism Laterality: right Lung location: lower lobe of lung Qualified Code(s): J18.1 - Lobar pneumonia, unspecified organism (4) Hypothyroidism SNOMED Code(s): 18305551 Code(s): E03.9 - HYPOTHYROIDISM, UNSPECIFIED Status: Chronic Current Visit: No (5) Mental retardation SNOMED Code(s): 03831652 Code(s): F79 - UNSPECIFIED INTELLECTUAL DISABILITIES Status: Acute Current Visit: No (6) Seizure disorder SNOMED Code(s): 585894100 Code(s): G40.909 - EPILEPSY, UNSP, NOT INTRACTABLE, WITHOUT STATUS EPILEPTICUS Status: Chronic Current Visit: No - Problem List Review Problem List Initiated/Reviewed/Updated: Yes - My Orders Last 24 Hours: My Active Orders 02/17/17 11:38 CULTURE STOOL [RM] Routine 02/17/17 11:39 C DIFFICILE TOXIN BY PCR [MREF] Routine 02/17/17 12:03 Communication Order [RC] 08,20 02/17/17 16:10 CULTURE URINE [RM] Routine 02/17/17 18:00 metFORMIN [Glucophage] 500 mg PO BIDMEALS 02/17/17 21:00 Escitalopram [Lexapro] 10 mg PO BEDTIME LORazepam [Ativan] 0.5 mg PO BID OLANZapine [ZyPREXA Zydis] 10 mg PO BEDTIME atorvaSTATin [Lipitor] 10 mg PO BEDTIME levETIRAcetam [Keppra] 1,000 mg PO BID 02/18/17 06:00 Levothyroxine [Synthroid] 100 mcg PO ACBRK 02/18/17 09:00 Methylcellulose [Citrucel SF] 0 gm PO DAILY 02/18/17 11:00 Levofloxacin/Dextrose 5%-Water [Levaquin in D5W 750 MG/150 ML] 750 mg Premix Bag 1 bag IV Q24H 02/18/17 18:00 Rivaroxaban [Xarelto] 20 mg PO WITHDINNER 02/19/17 05:11 BASIC METABOLIC PANEL,BMP [CHEM] AM CBC WITH AUTO DIFF [HEME] AM CRP [C-REACTIVE PROTEIN] [CHEM] AM - Plan Plan:: Impression [id number]-year-old male with mental retardation and above comorbidities presented with nausea, vomiting, diarrhea and possible chest pain and abdominal pain. His WBC and heart rate are elevated. Patient received influenza vaccine this year Probable pneumonia with sepsis CRP on admission 8.8. Influenza screen negative. Urinalysis is unremarkable 1 L of normal saline as a bolus followed by 2 L of normal saline at 100 mL per hour -Continue Levaquin was started in the emergency room. We'll continue Levaquin -Continue DuoNeb every 6 hours -Awaiting blood cultures, sputum culture, urine culture Possible gastroenteritis IV fluid as above -Ordered stool culture and C. difficile -Patient has not had a bowel movement since admission -If symptoms return or progress we'll order CAT scan of abdomen and pelvis History of seizure disorder Continue his home anticonvulsant History of DVT Continued Xarelto No need for DVT prophylaxis since he is on Xarelto
[2017-02-18] MEDS: Levofloxacin/Dextrose 5%-Water 750 MG in Premix Bag 1 BAG IV SCH (11:36)
[2017-02-18] MEDS: Sodium Chloride 0.9% 10 ML Syringe FLUSH PRN ×2 (11:36→13:08)
[2017-02-18] MEDS: RIVAROXABAN 20 MG PO SCH (17:42)
[2017-02-18] MEDS: atorvaSTATin 10 MG Tab PO SCH (20:41)
[2017-02-18] MEDS: Escitalopram 10 MG Tab PO SCH (20:41)
[2017-02-18] MEDS: OLANZAPINE 10 MG PO SCH (20:54)
[2017-02-19] MEDS: Albuterol/Ipratropium 3.0-0.5 MG/3 ML Neb Soln NEB SCH ×2 (01:29→07:17)
[2017-02-19] MEDS: Levothyroxine 100 MCG Tab PO SCH (05:32)
[2017-02-19 07:38] LABS: CHLORIDE,CL 105 mmol/L (101-111); SODIUM,NA 140 mmol/L (135-145)
[2017-02-19] MEDS: levETIRAcetam 500 MG Tab PO SCH ×2 (08:19→20:36)
[2017-02-19] MEDS: Methylcellulose Powder 479 GM Jar PO SCH (08:19)
[2017-02-19] MEDS: metFORMIN 500 MG Tab PO SCH ×2 (08:19→17:29)
[2017-02-19] MEDS: LORazepam 0.5 MG Tab PO SCH ×2 (08:19→20:40)
[2017-02-19] MEDS ORDERED: Albuterol/Ipratropium 3.0-0.5 MG/3 ML Neb Soln NEB PRN (08:31)
--- NOTE | 2017-02-19 08:32 | PCM.PN ---
- General Info Date of Service: 02/19/17 Admission Dx/Problem (Free Text): Admission Diagnosis/Problem Admission Diagnosis/Problem Shortness of breath Subjective Update: Gianni stated that he is feeling better. He denies any complaints. Nurse reported no cough or any symptoms since yesterday. He is still requiring 0.5 L of oxygen to keep his sats 93-95%. He does not use home oxygen. He was complaining of left knee pain but is better. Overnight he denies nausea, vomiting, diarrhea, abdominal pain, any other symptoms or concern. Nurse reported no bowel movement for emesis since admission. - Patient Data Vitals - Most Recent: Last Vital Signs Temp 36.7 C 02/19/17 08:04 Pulse 83 02/19/17 08:04 Resp 20 02/19/17 08:04 BP 129/80 02/19/17 08:04 Pulse Ox 95 02/19/17 08:04 Weight - Most Recent: 105.687 kg I&O - Last 24 Hours: Intake & Output 02/18/17 02/19/17 02/19/17 22:59 06:59 14:59 Intake Total 1010 510 Output Total 1425 Balance -415 510 Lab Results Last 24 Hours: Laboratory Results - last 24 hr 02/19/17 02/19/17 02/19/17 Range/Units 06:50 06:50 06:50 WBC 5.0 (5.0-10.0) 10^3/uL RBC 4.43 L (4.6-6.2) 10^6/uL Hgb 13.8 L (14.0-18.0) g/dL Hct 41.4 (40.0-54.0) % MCV 93.5 (80-100) fL MCH 31.2 (27.0-34.0) pg MCHC 33.3 (33.0-35.0) g/dL Plt Count 144 L (150-450) 10^3/uL Neut % (Auto) 68.0 (42.2-75.2) % Lymph % (Auto) 18.1 L (20.5-50.1) % [place] % (Auto) 9.7 H (2-8) % Eos % (Auto) 3.8 H (1.0-3.0) % Baso % (Auto) 0.4 (0.0-1.0) % Sodium 140 (135-145) mmol/L Potassium 3.8 (3.6-5.0) mmol/L Chloride 105 (101-111) mmol/L Carbon Dioxide 28.0 (21.0-31.0) mmol/L Anion Gap 10.8 BUN 10 (7-18) mg/dL Creatinine 0.6 (0.6-1.3) mg/dL Est Cr Clr Drug Dosing 137.47 mL/min Estimated GFR (MDRD) > 60 Glucose 125 H (74-105) mg/dL Calcium 8.1 L (8.4-10.2) mg/dl C-Reactive Protein 4.3 H (0.0-1.3) mg/dL Simeon Results Last 24 Hours: Microbiology 02/17/17 11:53 Aerobic Blood Culture - Preliminary Blood - Venous - Lab Draw NO GROWTH AFTER 1 DAY Anaerobic Blood Culture - Preliminary NO GROWTH AFTER 1 DAY 02/17/17 11:45 Aerobic Blood Culture - Preliminary Blood - Venous NO GROWTH AFTER 1 DAY Anaerobic Blood Culture - Preliminary NO GROWTH AFTER 1 DAY Med Orders - Current: Current Medications Acetaminophen (Tylenol) 650 mg PO Q4H PRN PRN Reason: Pain (Mild 1-3)/fever Albuterol (Proventil Neb Soln) 2.5 mg NEB Q2H PRN PRN Reason: shortness of breath/wheezing Albuterol/Ipratropium (Duoneb 3.0-0.5 Mg/3 Ml) 3 ml NEB Q6HRRT [facility] Last Admin: 02/19/17 07:17 Dose: 3 ml Atorvastatin Calcium (Lipitor) 10 mg PO BEDTIME [facility] Last Admin: 02/18/17 20:41 Dose: 10 mg Escitalopram Oxalate (Lexapro) 10 mg PO BEDTIME [facility] Last Admin: 02/18/17 20:41 Dose: 10 mg Levofloxacin/Dextrose 750 mg/ (Premix) 150 mls @ 100 mls/hr IV Q24H [facility] Last Infusion: 02/18/17 13:08 Dose: Infused Levetiracetam (Keppra) 1,000 mg PO BID [facility] Last Admin: 02/19/17 08:19 Dose: 1,000 mg Levothyroxine Sodium (Synthroid) 100 mcg PO ACBRK [facility] Last Admin: 02/19/17 05:32 Dose: 100 mcg Lorazepam (Ativan) 0.5 mg PO BID [facility] Last Admin: 02/19/17 08:19 Dose: 0.5 mg Magnesium Hydroxide (Milk Of Magnesia) 30 ml PO Q12H PRN PRN Reason: Constipation Metformin HCl (Glucophage) 500 mg PO BIDMEALS [facility] Last Admin: 02/19/17 08:19 Dose: 500 mg Methylcellulose (Citrucel Sf) 0 gm PO DAILY [facility] Last Admin: 02/19/17 08:19 Dose: 1 tbsp Morphine Sulfate (Morphine) 2 mg IVPUSH Q2H PRN PRN Reason: Pain (severe 7-10) Olanzapine [Zyprexa Zydis] 10 Mg Own Med 10 mg PO BEDTIME [facility] Last Admin: 02/18/17 20:54 Dose: 10 mg Rivaroxaban [Xarelto ] 20 Mg Tab Own Med 20 mg PO WITHDINNER [facility] Last Admin: 02/18/17 17:42 Dose: 20 mg Ondansetron HCl (Zofran) 4 mg IVPUSH Q6H PRN PRN Reason: Nausea/Vomiting Polyethylene Glycol (Miralax) 17 gm PO DAILY PRN PRN Reason: Constipation Sodium Chloride (Saline Flush) 10 ml FLUSH ASDIRECTED PRN PRN Reason: Keep Vein Open Last Admin: 02/18/17 13:08 Dose: 10 ml Zolpidem Tartrate (Ambien) 5 mg PO BEDTIME PRN PRN Reason: Sleep Last Admin: 02/18/17 20:44 Dose: 5 mg Discontinued Medications Fluticasone Propionate (Flonase) gm NASBOTH ASDIRECTED PRN PRN Reason: Congestion Fluticasone Propionate (Flonase) 0.1 gm NASBOTH ASDIRECTED PRN PRN Reason: Congestion Fluticasone Propionate (Flonase) 0.3 gm NASBOTH ASDIRECTED PRN PRN Reason: Congestion Levofloxacin/Dextrose 750 mg/ (Premix) 150 mls @ 100 mls/hr IV ONETIME ONE Stop: 02/17/17 11:38 Last Admin: 02/17/17 10:28 Dose: 100 mls/hr Sodium Chloride (Normal Saline) 1,000 mls @ 100 mls/hr IV ASDIRECTED [facility] Stop: 02/18/17 21:29 Last Infusion: 02/18/17 13:11 Dose: Infused Sodium Chloride (Normal Saline) 1,000 mls @ 999 mls/hr IV .BOLUS ONE Stop: 02/17/17 12:30 Last Admin: 02/17/17 12:33 Dose: 999 mls/hr - Exam General: Alert, Cooperative. No: No Acute Distress, Mild Distress, Moderate Distress, Severe Distress, Sedated, Lethargic, Obtunded HEENT: Pupils Equal, Pupils Reactive, Mucous Membr. Moist/[place] Neck: Supple, Trachea Midline, No JVD Lungs: Clear to Auscultation, Normal Respiratory Effort, Decreased Breath Sounds (Globally. He is probably just not trying to take a complete deep breath on exam). No: Crackles, Rales, Rhonchi, Rub, Stridor, Wheezing Cardiovascular: Regular Rate, Regular Rhythm GI/Abdominal Exam: Normal Bowel Sounds, Soft, Non-Tender, No Organomegaly, No Distention, No Abnormal Bruit, No Mass Back Exam: Normal Inspection, Full Range of Motion. No: CVA Tenderness (L), CVA Tenderness (R) Extremities: Normal Inspection, Normal Range of Motion, Non-Tender, No Pedal Edema, Normal Capillary Refill Skin: Intact. No: Moist, Rash Neurological: No New Focal Deficit, Normal Speech, Normal Tone Psy/Mental Status: Alert, Normal Affect, Normal Mood - Problem List & Annotations (1) Diarrhea SNOMED Code(s): 12301111 Code(s): R19.7 - DIARRHEA, UNSPECIFIED Status: Acute Current Visit: Yes (2) Nausea and vomiting SNOMED Code(s): 67498067 Code(s): R11.2 - NAUSEA WITH VOMITING, UNSPECIFIED Status: Acute Current Visit: Yes (3) Pneumonia SNOMED Code(s): 733959821 Code(s): J18.9 - PNEUMONIA, UNSPECIFIED ORGANISM Status: Acute Current Visit: Yes Qualifiers: Pneumonia type: due to unspecified organism Laterality: right Lung location: lower lobe of lung Qualified Code(s): J18.1 - Lobar pneumonia, unspecified organism (4) Hypothyroidism SNOMED Code(s): 54346666 Code(s): E03.9 - HYPOTHYROIDISM, UNSPECIFIED Status: Chronic Current Visit: No (5) Mental retardation SNOMED Code(s): 34205433 Code(s): F79 - UNSPECIFIED INTELLECTUAL DISABILITIES Status: Acute Current Visit: No (6) Seizure disorder SNOMED Code(s): 173328756 Code(s): G40.909 - EPILEPSY, UNSP, NOT INTRACTABLE, WITHOUT STATUS EPILEPTICUS Status: Chronic Current Visit: No - Problem List Review Problem List Initiated/Reviewed/Updated: Yes - My Orders Last 24 Hours: My Active Orders 02/18/17 09:00 Methylcellulose [Citrucel SF] 0 gm PO DAILY 02/18/17 11:00 Levofloxacin/Dextrose 5%-Water [Levaquin in D5W 750 MG/150 ML] 750 mg Premix Bag 1 bag IV Q24H 02/18/17 13:25 Convert IV to Saline Lock [OM.PC] Routine 02/18/17 18:00 Rivaroxaban [Xarelto] 20 mg PO WITHDINNER 02/18/17 19:05 C DIFFICILE TOXIN BY PCR [MREF] Routine CULTURE STOOL [RM] Routine SHIGA TOXIN 1 & 2 [MREF] Routine - Plan Plan:: Impression 42-bnin-y[age]-year-old male with mental retardation and above comorbidities presented with nausea, vomiting, diarrhea and possible chest pain and abdominal pain. His WBC and heart rate are elevated. Patient received influenza vaccine this year Probable pneumonia with sepsis CRP on admission 8.8. Influenza screen negative. Urinalysis is unremarkable Patient received 1 L of normal saline as a bolus followed by 2 L of normal saline at 100 mL per hour -Continue Levaquin -Change DuoNeb every 6 hours scheduled to when necessary -Awaiting blood cultures, sputum culture, urine culture -Repeat chest x-ray tomorrow Possible gastroenteritis -No symptoms since admission IV fluid as above -Ordered stool culture and C. difficile. -patient had only one formed bowel movement since admission History of seizure disorder Continue his home anticonvulsant History of DVT Continued Xarelto No need for DVT prophylaxis since he is on Xarelto for history of DVT
[2017-02-19] MEDS: Levofloxacin/Dextrose 5%-Water 750 MG in Premix Bag 1 BAG IV SCH (10:59)
[2017-02-19] MEDS: Sodium Chloride 0.9% 10 ML Syringe FLUSH PRN (10:59)
[2017-02-19] MEDS: RIVAROXABAN 20 MG PO SCH (17:30)
[2017-02-19] MEDS: Escitalopram 10 MG Tab PO SCH (20:37)
[2017-02-19] MEDS: atorvaSTATin 10 MG Tab PO SCH (20:38)
[2017-02-19] MEDS: OLANZAPINE 10 MG PO SCH ×2 (20:39→20:40)
[2017-02-20] MEDS: Levothyroxine 100 MCG Tab PO SCH (05:57)
[2017-02-20] MEDS: LORazepam 0.5 MG Tab PO SCH (08:34)
[2017-02-20] MEDS: levETIRAcetam 500 MG Tab PO SCH (08:34)
[2017-02-20] MEDS: metFORMIN 500 MG Tab PO SCH (08:34)
[2017-02-20] MEDS: Methylcellulose Powder 479 GM Jar PO SCH (08:35)
--- NOTE | 2017-02-20 09:45 | PCM.DCSUM1 ---
Discharge Summary - Hospital Course Free Text/Narrative:: 56-year-old male with the past medical history of seizure disorder, DVT, hypertension, hypothyroidism, obstructive sleep apnea, diverticulosis, mental retardation presents to the emergency room with caregiver for having nausea and vomiting started the day prior to admission. He reported chest pain one time after the vomiting. No more chest pain. He had some cough. He also reported some stomach pain on day of admission. The history was obtained and patient is not reliable to give history. He he is most of the time not oriented to place or time however he is not in acute distress and he is pleasant. However patient and caregiver denies shortness breath, upper respiratory symptoms, urinary symptoms, lower extremity edema, unilateral weakness/numbness/tingling, any other symptoms or concerns. On admission WBC 12.8. D-dimer 179. Potassium 3.8. Creatinine 1.0. Blood glucose 169. Lactic acid 1.3. Total bilirubin 1.2. AST, ALP, alkaline phosphatase because of normal. Troponin is normal. EKG EKG did not show ST segment or T-wave status changes. Chest x-ray is concerning for infiltrate. Repeated chest x-ray today did not show acute acute findings. With the probability of having pneumonia and meeting SIRS criteria he was suspected to have sepsis and was treated with IV fluid and Levaquin 750 mg IV. During the admission patient was having occasional dry cough and was requiring oxygen for 2 days. Otherwise he did not have any other complaints or symptoms. His lung exam continued to be normal. He did not have any nausea, vomiting, diarrhea, stomach pain, chest pain, unilateral weakness/numbness/tingling, any kind of pain other than some mild left knee discomfort for the first 24 hours of admission, urinary symptoms, any other symptoms or concerns. His white cells are back to normal and his CBC and BMP are unremarkable today. His influenza screen test was negative. Urine culture negative for 2 days. 2 sets of [place] and anaerobic blood cultures has no growth after 2 days. Patient did not have any elevated temp.. Patient has no symptoms overnight and no unusual events. Patient is discharged home to continue another 4 days of oral Levaquin and follow-up with primary care provider next week. I also prescribed him albuterol inhaler. I wonder if patient had bronchitis as than pneumonia. - Discharge Data Discharge Date: 11/12/17 Discharge Disposition: Home, Self-Care 01 Condition: Stable - Discharge Diagnosis/Problem(s) (1) Diarrhea SNOMED Code(s): 67370420 ICD Code: R19.7 - DIARRHEA, UNSPECIFIED Status: Acute Current Visit: Yes (2) Nausea and vomiting SNOMED Code(s): 69650924 ICD Code: R11.2 - NAUSEA WITH VOMITING, UNSPECIFIED Status: Acute Current Visit: Yes (3) Pneumonia SNOMED Code(s): 828327139 ICD Code: J18.9 - PNEUMONIA, UNSPECIFIED ORGANISM Status: Acute Current Visit: Yes Qualifiers: Pneumonia type: due to unspecified organism Laterality: right Lung location: lower lobe of lung Qualified Code(s): J18.1 - Lobar pneumonia, unspecified organism (4) Hypothyroidism SNOMED Code(s): 40499951 ICD Code: E03.9 - HYPOTHYROIDISM, UNSPECIFIED Status: Chronic Current Visit: No (5) Mental retardation SNOMED Code(s): 46755559 ICD Code: F79 - UNSPECIFIED INTELLECTUAL DISABILITIES Status: Acute Current Visit: No (6) Seizure disorder SNOMED Code(s): 047867471 ICD Code: G40.909 - EPILEPSY, UNSP, NOT INTRACTABLE, WITHOUT STATUS EPILEPTICUS Status: Chronic Current Visit: No - Patient Instructions Diet: Heart Healthy Diet Activity: As Tolerated Showering/Bathing: May Shower Notify Provider of: Fever, Nausea and/or Vomiting - Discharge Plan Prescriptions/Med Rec: Albuterol Sulfate [Ventolin Hfa] 8 gm IH Q6H PRN #1 hfa.aer.ad PRN Reason: cough, shortness of breath Levofloxacin [Levaquin] 750 mg PO DAILY #4 tablet Home Medications: Home Meds LORazepam [Ativan] 0.5 mg PO BID 11/06/13 [History] Levothyroxine [Synthroid] 100 mcg PO DAILY 11/06/13 [History] OLANZapine [ZyPREXA Zydis] 10 mg PO BEDTIME 11/06/13 [History] atorvaSTATin [Lipitor] 10 mg PO BEDTIME 11/06/13 [History] levETIRAcetam [Keppra] 1,000 mg PO BID 11/06/13 [History] levOCARNitine [l-Carnitine] 500 mg PO DAILY 11/06/13 [History] Rivaroxaban [Xarelto] 20 mg PO DAILY #30 tablet 06/12/14 [Rx] Escitalopram [Lexapro] 1 tab PO BEDTIME 07/22/16 [History] Fluticasone Propionate [Flonase] 1 spray INH ASDIRECTED PRN 07/22/16 [History] metFORMIN HCl [Metformin HCl] 1 tab PO BID 07/22/16 [History] Methylcellulose [Citrucel SF] 1 tbsp PO DAILY 02/17/17 [History] Albuterol Sulfate [Ventolin Hfa] 8 gm IH Q6H PRN #1 hfa.aer.ad 02/20/17 [Rx] Levofloxacin [Levaquin] 750 mg PO DAILY #4 tablet 02/20/17 [Rx] Forms: ED Department Discharge Referrals: PCP,Unobtain [Ordering Only Provider] - - General Info Date of Service: 02/20/17 Admission Dx/Problem (Free Text: Admission Diagnosis/Problem Admission Diagnosis/Problem Shortness of breath Subjective Update: Today Gianni stated that he is feeling normal. He denies any complaints. Nurse reported no cough or any symptoms since yesterday. He has not required oxygen since yesterday. He does not use home oxygen. He has no knee pain today. Overnight he denies nausea, vomiting, diarrhea, abdominal pain, any other symptoms or concern. Nurse reported no bowel movement for emesis since admission. The rest of review of system are negative - Patient Data Vitals - Most Recent: Last Vital Signs Temp 36.7 C 02/20/17 07:42 Pulse 67 02/20/17 07:42 Resp 20 02/20/17 07:42 BP 122/78 02/20/17 07:42 Pulse Ox 92 L 02/20/17 07:42 Weight - Most Recent: 103.6 kg I&O - Last 24 hours: Intake & Output 02/19/17 02/20/17 02/20/17 22:59 06:59 14:59 Intake Total 715 820 Output Total 1025 Balance 715 -205 N[facility] Results - Last 24 hrs: Microbiology 02/17/17 11:53 Aerobic Blood Culture - Preliminary Blood - Venous - Lab Draw NO GROWTH AFTER 2 DAYS Anaerobic Blood Culture - Preliminary NO GROWTH AFTER 2 DAYS 02/17/17 11:45 Aerobic Blood Culture - Preliminary Blood - Venous NO GROWTH AFTER 2 DAYS Anaerobic Blood Culture - Preliminary NO GROWTH AFTER 2 DAYS 02/17/17 16:10 Urine Culture - Final Urine, Clean Catch NO GROWTH AFTER 2 DAYS Med Orders - Current: Current Medications Acetaminophen (Tylenol) 650 mg PO Q4H PRN PRN Reason: Pain (Mild 1-3)/fever Albuterol (Proventil Neb Soln) 2.5 mg NEB Q2H PRN PRN Reason: shortness of breath/wheezing Albuterol/Ipratropium (Duoneb 3.0-0.5 Mg/3 Ml) 3 ml NEB Q6HRRT PRN PRN Reason: Shortness of breath, low sat Atorvastatin Calcium (Lipitor) 10 mg PO BEDTIME [facility] Last Admin: 02/19/17 20:38 Dose: 10 mg Escitalopram Oxalate (Lexapro) 10 mg PO BEDTIME [facility] Last Admin: 02/19/17 20:37 Dose: 10 mg Levofloxacin/Dextrose 750 mg/ (Premix) 150 mls @ 100 mls/hr IV Q24H [facility] Last Infusion: 02/19/17 13:09 Dose: Infused Levetiracetam (Keppra) 1,000 mg PO BID [facility] Last Admin: 02/20/17 08:34 Dose: 1,000 mg Levothyroxine Sodium (Synthroid) 100 mcg PO ACBRK [facility] Last Admin: 02/20/17 05:57 Dose: 100 mcg Lorazepam (Ativan) 0.5 mg PO BID [facility] Last Admin: 02/20/17 08:34 Dose: 0.5 mg Magnesium Hydroxide (Milk Of Magnesia) 30 ml PO Q12H PRN PRN Reason: Constipation Metformin HCl (Glucophage) 500 mg PO BIDMEALS [facility] Last Admin: 02/20/17 08:34 Dose: 500 mg Methylcellulose (Citrucel Sf) 0 gm PO DAILY [facility] Last Admin: 02/20/17 08:35 Dose: 1 tbsp Morphine Sulfate (Morphine) 2 mg IVPUSH Q2H PRN PRN Reason: Pain (severe 7-10) Olanzapine [Zyprexa Zydis] 10 Mg Own Med 10 mg PO BEDTIME [facility] Last Admin: 02/19/17 20:40 Dose: 10 mg Rivaroxaban [Xarelto ] 20 Mg Tab Own Med 20 mg PO WITHDINNER [facility] Last Admin: 02/19/17 17:30 Dose: 20 mg Ondansetron HCl (Zofran) 4 mg IVPUSH Q6H PRN PRN Reason: Nausea/Vomiting Polyethylene Glycol (Miralax) 17 gm PO DAILY PRN PRN Reason: Constipation Sodium Chloride (Saline Flush) 10 ml FLUSH ASDIRECTED PRN PRN Reason: Keep Vein Open Last Admin: 02/19/17 10:59 Dose: 10 ml Zolpidem Tartrate (Ambien) 5 mg PO BEDTIME PRN PRN Reason: Sleep Last Admin: 02/18/17 20:44 Dose: 5 mg Discontinued Medications Albuterol/Ipratropium (Duoneb 3.0-0.5 Mg/3 Ml) 3 ml NEB Q6HRRT [facility] Last Admin: 02/19/17 07:17 Dose: 3 ml Fluticasone Propionate (Flonase) gm NASBOTH ASDIRECTED PRN PRN Reason: Congestion Fluticasone Propionate (Flonase) 0.1 gm NASBOTH ASDIRECTED PRN PRN Reason: Congestion Fluticasone Propionate (Flonase) 0.3 gm NASBOTH ASDIRECTED PRN PRN Reason: Congestion Levofloxacin/Dextrose 750 mg/ (Premix) 150 mls @ 100 mls/hr IV ONETIME ONE Stop: 02/17/17 11:38 Last Admin: 02/17/17 10:28 Dose: 100 mls/hr Sodium Chloride (Normal Saline) 1,000 mls @ 100 mls/hr IV ASDIRECTED [facility] Stop: 02/18/17 21:29 Last Infusion: 02/18/17 13:11 Dose: Infused Sodium Chloride (Normal Saline) 1,000 mls @ 999 mls/hr IV .BOLUS ONE Stop: 02/17/17 12:30 Last Admin: 02/17/17 12:33 Dose: 999 mls/hr - Exam General: Reports: Alert, Cooperative, No Acute Distress, Other (He is pleasant and comfortable). Denies: Mild Distress, Moderate Distress, Severe Distress, Sedated, Lethargic, Obtunded HEENT: Reports: Pupils Equal, Pupils Reactive, EOMI, Mucous Membr. Moist/[place] Neck: Reports: Supple, Trachea Midline, No JVD Lungs: Reports: Clear to Auscultation, Normal Respiratory Effort. Denies: Decreased Breath Sounds, Crackles, Rales, Rhonchi, Rub, Stridor, Wheezing Cardiovascular: Reports: Regular Rate, Regular Rhythm, No Murmurs GI/Abdominal Exam: Normal Bowel Sounds, Soft, Non-Tender, No Organomegaly, No Distention, No Abnormal Bruit, No Mass (Male) Exam: Deferred Rectal (Males) Exam: Deferred Back Exam: Reports: Normal Inspection, Full Range of Motion. Denies: CVA Tenderness (L), CVA Tenderness (R) Extremities: Normal Inspection, Normal Range of Motion, Non-Tender, No Pedal Edema, Normal Capillary Refill Skin: Reports: Intact. Denies: Rash, Ecchymosis Neurological: Reports: No New Focal Deficit Psy/Mental Status: Reports: Alert, Normal Affect, Normal Mood *Q Meaningful Use (DIS) - VTE *Q VTE Criteria *Q: - Stroke *Q Stroke Criteria *Q: - AMI *Q AMI Criteria *Q:
[2017-02-20] MEDS: Levofloxacin/Dextrose 5%-Water 750 MG in Premix Bag 1 BAG IV SCH (10:33)
[2017-02-20 12:14] VITALS: BP 121/74
--- NOTE | 2017-02-21 10:39 | EKG ---
02/17/2017 - ROHINI CHAMBERS - FINDINGS: I reviewed the EKG and agree with the machine's reading. [facility] /[id number]
== END 2017-02-20 13:30 | disposition home or self-care (01) | DRG 195 ==
LOC: DL.ED 09:04 → UNDOADMIN 11:15 → DL.MS 11:15
PROVIDERS: ADMIT Family Medicine; ATTEND Family Medicine
DX: J18.9 Pneumonia, unspecified organism (principal); E03.9 Hypothyroidism, unspecified; R19.7 Diarrhea, unspecified; G47.30 Sleep apnea, unspecified; F32.9 Major depressive disorder, single episode, unspecified; R11.2 Nausea with vomiting, unspecified; F79 Unspecified intellectual disabilities; Z68.30 Body mass index [BMI] 30.0-30.9, adult; G40.909 Epilepsy, unspecified, not intractable, without status epilepticus; Z86.718 Personal history of other venous thrombosis and embolism; Z79.01 Long term (current) use of anticoagulants; G47.33 Obstructive sleep apnea (adult) (pediatric); Z88.8 Allergy status to other drugs, medicaments and biological substances; Z79.899 Other long term (current) drug therapy; I10 Essential (primary) hypertension; E78.00 Pure hypercholesterolemia, unspecified; F41.9 Anxiety disorder, unspecified; E66.9 Obesity, unspecified; Z68.34 Body mass index [BMI] 34.0-34.9, adult
CPT/HCPCS: 36415; 71020; 80053; 83605; 84484; 85025; 85379; 86140; 93005; 93010; 96365; 99285; J1956; J7050; 80048; 81001; 87040; 87045; 87046; 87086; 87493; 87804; 87899; 94640; A9270-GY; J7030; J7040

== ENCOUNTER 2017-10-25 01:24 | Emergency (ER) | payer MEDICARE, MEDICAID ==
--- NOTE | 2017-10-25 02:33 | EDM.PDOC ---
ED HPI GENERAL MEDICAL PROBLEM - General Chief Complaint: Head Injury Stated Complaint: AMBULANCE-LACERATION TO HEAD Time Seen by Provider: 10/25/17 01:24 Source of Information: Reports: Patient, EMS, Other (alf ) History Limitations: Reports: No Limitations - History of Present Illness INITIAL COMMENTS - FREE TEXT/NARRATIVE: ED via [facility] Patient is resident at [facility], Hx MR, seizure Disorder, DVT's on blood thinner. Reported to have gotten up to shower on own and fell in bathroom, Area under sink broken pipes on sink broken No loss of consciousness. Staff member heard fall and in near area and patient up right when entered bathroom . Patient reported by staff to be anxious but acting appropriately and his normal since fall. EMS reported patient to be ambulatory on scene. EMS report large laceration to back of scalp. Bleeding reported to be controlled with pressure. On arrival active bleeding from posterior scalp laceration. Transfer from EMS cot toED cart per self. C/o headache to back of head, Denies neck or back pain, or pain in extremities. Staff report up to date with immunization Treatments EDUCATIONAL TECHNOLOGY SPECIALIST: Reports: Dressing(s) - Related Data Allergies Allergy/AdvReac Type Severity Reaction Status Date / Time cefprozil [From Cefzil] Allergy Cannot Verified 10/25/17 01:41 Remember Cephalosporins Allergy Cannot Verified 10/25/17 01:41 Remember haloperidol [From Haldol] Allergy Cannot Verified 10/25/17 01:41 Remember haloperidol lactate Allergy Cannot Verified 10/25/17 01:41 [From Haldol] Remember Home Meds: Home Meds LORazepam [Ativan] 0.25 mg PO BID 11/06/13 [History] Levothyroxine [Synthroid] 100 mcg PO DAILY 11/06/13 [History] OLANZapine [ZyPREXA Zydis] 15 mg PO BEDTIME 11/06/13 [History] atorvaSTATin [Lipitor] 10 mg PO BEDTIME 11/06/13 [History] levETIRAcetam [Keppra] 1,000 mg PO BID 11/06/13 [History] levOCARNitine [l-Carnitine] 500 mg PO DAILY 11/06/13 [History] Rivaroxaban [Xarelto] 20 mg PO DAILY #30 tablet 06/12/14 [Rx] Escitalopram [Lexapro] 1 tab PO BEDTIME 07/22/16 [History] metFORMIN HCl [Metformin HCl] 1 tab PO BID 07/22/16 [History] Methylcellulose [Citrucel SF] 1 tbsp PO DAILY 02/17/17 [History] Past Medical History HEENT History: Reports: Impaired Vision, Other (See Below) Other HEENT History: presbyopia Cardiovascular History: Reports: High Cholesterol, Hypertension Respiratory History: Reports: PE, Sleep Apnea Neurological History: Reports: Seizure, Other (See Below) Psychiatric History: Reports: Anxiety, Other (See Below) Other Psychiatric History: disruptive behavior disorder Endocrine/Metabolic History: Reports: Hypothyroidism, Obesity/BMI 30+ Social & Family History - Family History Family Medical History: Unobtainable - Tobacco Use Smoking Status *Q: Unknown Ever Smoked - Caffeine Use Caffeine Use: Reports: Coffee - Living Situation & Occupation Living situation: Reports: Single, Extended Care Facility Occupation: Disabled ED ROS GENERAL - Review of Systems Review Of Systems: ROS reveals no pertinent complaints other than HPI. ED EXAM, HEAD INJURY - Physical Exam Exam: See Below Exam Limited By: No Limitations General Appearance: Alert, No Apparent Distress Head: Normocephalic, Active Bleeding. No: Glover's Sign Nexus Criteria: No: Posterior, Midline Cervical Tenderness, Evidence of Intoxication, Altered Level of Consciousness, Focal Neurological Deficit, Painful Distraction Injuries Eyes: Bilateral Eye: EOMI, PERRL (3) Ears: Normal External Exam, Canal Blood Nose: Normal Inspection Throat/Mouth: Normal Inspection, Normal Lips Neck: Non-Tender, Normal Inspection. No: Paraspinous Muscle Tender, Spinous Processes Tender, Stiff Neck, Tender Lateral, Tender Midline Respiratory: No Respiratory Distress, Lungs Clear, Normal Breath Sounds Cardiovascular: Normal Peripheral Pulses, Regular Rate, Rhythm GI/Abdominal Exam: Normal Bowel Sounds, Soft Extremities: Normal Inspection, Normal Range of Motion Neurologic: Alert, Other (appropriate with staff) Skin: Normal Color, Other - [place] Coma Score Best Eye Response ([place]): (4) Open Spontaneously Best Verbal Response ([place]): (5) Oriented Best Motor Response ([place]): (6) Obeys Commands Allison Total: 15 ED LACERATION/WOUND & PAL PROC - Laceration/Wound Repair Upper Mid-Posterior Head Lac/wound length in cm: 9 Appearance: Irregular Distal NVT: Neuro & Vascular Intact Skin Prep: Chlorhexidine (Hibiciens), Saline Exploration/Debridement/Repair: Wound Explored Closed with: Zoe (11) Sterile Dressing Applied: Nurse (pressure dressing) Tetanus Status Addressed: Yes Right Shoulder Lac/wound length in cm: 3 Appearance: Superficial Distal NVT: Neuro & Vascular Intact Skin Prep: Chlorhexidine ([place]), Saline Closed with: [place] (3) Tetanus Status Addressed: Yes Course - Vital Signs Last Recorded V/S: Last Vital Signs Temp 97.8 F 10/25/17 02:39 Pulse 62 10/25/17 02:39 Resp 16 10/25/17 02:39 BP 107/62 10/25/17 02:39 Pulse Ox 94 L 10/25/17 02:39 - Orders/Labs/Meds Labs: Laboratory Tests 10/25/17 10/25/17 10/25/17 Range/Units 02:14 02:14 02:14 WBC 7.2 (5.0-10.0) 10^3/uL RBC 4.45 L (4.6-6.2) 10^6/uL Hgb 13.8 L (14.0-18.0) g/dL Hct 41.2 (40.0-54.0) % MCV 92.6 (80-100) fL MCH 31.0 (27.0-34.0) pg MCHC 33.5 (33.0-35.0) g/dL Plt Count 212 (150-450) 10^3/uL Neut % (Auto) 66.6 (42.2-75.2) % Lymph % (Auto) 22.7 (20.5-50.1) % [place] % (Auto) 8.2 H (2-8) % Eos % (Auto) 2.1 (1.0-3.0) % Baso % (Auto) 0.4 (0.0-1.0) % PT 10.7 (9.0-12.0) SEC INR 1.1 (0.9-1.2) Sodium 143 (135-145) mmol/L Potassium 4.0 (3.6-5.0) mmol/L Chloride 108 (101-111) mmol/L Carbon Dioxide 32.0 H (21.0-31.0) mmol/L Anion Gap 7.0 BUN 21 H (7-18) mg/dL Creatinine 0.8 (0.6-1.3) mg/dL Est Cr Clr Drug Dosing 101.88 mL/min Estimated GFR (MDRD) > 60 BUN/Creatinine Ratio 26.25 Glucose 142 H (74-105) mg/dL Calcium 8.7 (8.4-10.2) mg/dl Total Bilirubin 0.6 (0.2-1.0) mg/dL AST 23 (10-42) IU/L ALT 19 (10-60) IU/L Alkaline Phosphatase 54 (42-121) IU/L Troponin I < 0.02 (0.00-0.02) ng/ml Total Protein 6.3 L (6.7-8.2) g/dl Albumin 3.8 (3.2-5.5) g/dl Globulin 2.5 Albumin/Globulin Ratio 1.52 - Radiology Interpretation Free Text/Narrative:: Lateral C-spine and 2view skull negative for acute fracture - Re-Assessments/Exams Free Text/Narrative Re-Assessment/Exam: 10/25/17 03:37 No ground ambulance currently available for transfer, continues mild bleeding to posterior scalp. Blood continues right ear canal. patient remains alert, responding appropriately, c/o headache. GCS 15. Tx via [facility]. Staff aware. Sister Leobardo notified of transfer. Staff Ashley stated he will follow behind. Staff and family aware that if CT results negative patient may be released. 10/25/17 03:45 Tx via [facility] Stable condition, remains alert, responding appropriately, follows directions. small amount of bleeding from scalp wound. Pressure dressing reinforced. TX via F as no ground ambulance available. 10/25/17 04:20 10/26/17 04:43 Departure - Departure Time of Disposition: 03:40 Disposition: DC/Tfer to Acute Hospital 02 Condition: Undetermined Clinical Impression: Scalp laceration, Hematoma Fall Qualifiers: Encounter type: initial encounter Qualified Code(s): W19.XXXA - Unspecified fall, initial encounter Skin tear of left forearm without complication Qualifiers: Encounter type: initial encounter Qualified Code(s): S51.812A - Laceration without foreign body of left forearm, initial encounter Laceration of right shoulder Qualifiers: Encounter type: initial encounter Qualified Code(s): S41.011A - Laceration without foreign body of right shoulder, initial encounter - Discharge Information Referrals: PCP,Unobtain [Ordering Only Provider] - Forms: ED Department Discharge
[2017-10-25 02:40] VITALS: BP 107/62
[2017-10-25 02:44] LABS: CHLORIDE,CL 108 mmol/L (101-111); SODIUM,NA 143 mmol/L (135-145)
== END 2017-10-25 03:44 ==
LOC: DL.ED 01:24
DX: S01.01XA Laceration without foreign body of scalp, initial encounter (principal); S51.812A Laceration without foreign body of left forearm, initial encounter; S41.011A Laceration without foreign body of right shoulder, initial encounter; E03.9 Hypothyroidism, unspecified; I10 Essential (primary) hypertension; E78.00 Pure hypercholesterolemia, unspecified; F41.9 Anxiety disorder, unspecified; G40.909 Epilepsy, unspecified, not intractable, without status epilepticus; Z88.1 Allergy status to other antibiotic agents; Z88.8 Allergy status to other drugs, medicaments and biological substances; Z79.899 Other long term (current) drug therapy; W18.2XXA Fall in (into) shower or empty bathtub, initial encounter
CPT/HCPCS: 12004; 36415; 70250; 72020; 80053; 84484; 85025; 85610; 99284; 99285

== ENCOUNTER 2019-07-17 11:29 | Inpatient (IN) | payer MEDICARE, MEDICAID ==
[2019-07-17] MEDS ORDERED: Sodium Chloride 0.9% 10 ML Syringe FLUSH PRN (11:35)
[2019-07-17] MEDS ORDERED: Lactated Ringers 1,000 ML IV ONE (11:51)
--- NOTE | 2019-07-17 11:55 | EDM.PDOC ---
ED HPI GENERAL MEDICAL PROBLEM - General Chief Complaint: Respiratory Problem Stated Complaint: LOW 02, POSSIBLE PNEUMONIA Time Seen by Provider: 07/17/19 11:39 Source of Information: Reports: EMS History Limitations: Reports: Altered Mental Status - History of Present Illness INITIAL COMMENTS - FREE TEXT/NARRATIVE: Patient comes emergency department today [facility] been a resident there for many years and has not traveled outside of the facility. HPI is unobtainable from the patient is he has rather drowsy and somewhat obtunded on arrival. Per EMS report the patient has had 2 days of coughing at the [facility]. They they checked his oxygen saturation and it was quite low in the mid 70s. He was not as alert as normal so the ambulance was summoned and he was brought to the emergency department. - Related Data Allergies Allergy/AdvReac Type Severity Reaction Status Date / Time cefprozil [From Cefzil] Allergy Cannot Verified 09/08/18 13:31 Remember Cephalosporins Allergy Cannot Verified 09/08/18 13:31 Remember haloperidol [From Haldol] Allergy Cannot Verified 09/08/18 13:31 Remember haloperidol lactate Allergy Cannot Verified 09/08/18 13:31 [From Haldol] Remember Home Meds: Home Meds Levothyroxine [Synthroid] 100 mcg PO DAILY 11/06/13 [History] Rivaroxaban [Xarelto] 20 mg PO DAILY #30 tablet 06/12/14 [Rx] Propranolol [Inderal] 10 mg PO BID 09/08/18 [History] Sennosides/Docusate Sodium [Senna Plus Tablet] 2 tab PO TID 09/08/18 [History] cloZAPine 200 mg PO DAILY 09/08/18 [History] polyethylene glycoL 3350 [MiraLAX] 17 gm PO DAILY 09/08/18 [History] Acetylcysteine [Nac] 600 mg PO BID 07/17/19 [History] ClonazePAM [KlonoPIN] 2 mg PO BID 07/17/19 [History] Famotidine 20 mg PO DAILY 07/17/19 [History] Glycopyrrolate [Robinul] 0.5 mg PO BID 07/17/19 [History] Melatonin 12 mg PO BEDTIME 07/17/19 [History] Mirtazapine [Remeron] 7.5 mg PO BEDTIME 04/07/20 [History] OLANZapine [ZyPREXA] 10 mg PO DAILY 07/17/19 [History] atorvaSTATin [Lipitor] 10 mg PO BEDTIME 07/17/19 [History] cloZAPine 200 mg PO BEDTIME 07/17/19 [History] cloZAPine [Clozapine] 50 mg PO BEDTIME 07/17/19 [History] lamoTRIgine [Lamotrigine] 150 mg PO BID 07/17/19 [History] metFORMIN [Glucophage] 500 mg PO BIDMEALS 07/17/19 [History] Past Medical History HEENT History: Reports: Impaired Vision, Other (See Below) Other HEENT History: presbyopia Cardiovascular History: Reports: High Cholesterol, Hypertension Respiratory History: Reports: PE, Sleep Apnea Gastrointestinal History: Reports: Chronic Constipation, Other (See Below) Other Gastrointestinal History: gastritis Genitourinary History: Reports: Urinary Incontinence Neurological History: Reports: Seizure, Other (See Below) Psychiatric History: Reports: Anxiety, Other (See Below) Other Psychiatric History: disruptive behavior disorder Endocrine/Metabolic History: Reports: Hypothyroidism, Obesity/BMI 30+ Hematologic History: Reports: None Immunologic History: Reports: None Oncologic (Cancer) History: Reports: None - Infectious Disease History Infectious Disease History: Reports: None - Past Surgical History Head Surgeries/Procedures: Reports: None Musculoskeletal Surgical History: Reports: Hip Replacement Social & Family History - Family History Family Medical History: Unobtainable - Tobacco Use Smoking Status *Q: Never Smoker Second Hand Smoke Exposure: No - Caffeine Use Caffeine Use: Reports: Coffee - Recreational Drug Use Recreational Drug Use: No - Living Situation & Occupation Living situation: Reports: Single, Extended Care Facility Occupation: Disabled ED ROS GENERAL - Review of Systems Review Of Systems: Unable To Obtain Reason Not Obtained: altered LOC ED EXAM, GENERAL - Physical Exam Exam: See Below Free Text/Narrative:: To very loud verbal he moans and really can't make out any words. To pain he does not withdraw or even moan. No distress no spontaneous movement of extremities. A very thick congested weak cough noted upon arrival. Exam Limited By: Altered Mental Status General Appearance: Obtunded Eye Exam: Bilateral Eye: Normal Inspection Ears: Normal External Exam Nose: Normal Inspection Throat/Mouth: Normal Inspection, Normal Oropharynx Head: Atraumatic, Normocephalic Neck: Normal Inspection, Supple, Non-Tender Respiratory/Chest: Decreased Breath Sounds (throughout bilaterally. ), Other ( No overt rhonchi rales or wheezing but shallow breathing and doesn't follow commands to take a deep breath. ) Cardiovascular: Normal Peripheral Pulses, Regular Rate, Rhythm GI/Abdominal: Normal Bowel Sounds, Soft, Non-Tender (Male) Exam: Deferred Rectal (Males) Exam: Deferred Back Exam: Normal Inspection, Full Range of Motion Extremities: Normal Inspection (other than no spontaneous movement. ) Neurological: Slow to Respond (See statesments above. ) Skin Exam: No Rash, Cool, Diaphoretic, Pallor Lymphatic: No Adenopathy EKG INTERPRETATION EKG Date: 07/17/19 Time: 12:31 Rhythm: NSR Rate (Beats/Min): 91 [place]: Normal P-Wave: Present QRS: Normal ST-T: Normal QT: Normal Comparison: No Change Course - Vital Signs Last Recorded V/S: Last Vital Signs Temp 37.5 C 07/18/19 08:25 Pulse 96 07/18/19 09:04 Resp 22 H 07/18/19 08:25 BP 101/55 L 07/18/19 09:04 Pulse Ox 91 L 07/18/19 08:25 - Orders/Labs/Meds Orders: Active Orders 24 hr Category Date Time Status Peripheral IV Care [RC] 09,21 Care 07/17/19 11:37 Active CULTURE BLOOD [BC] Stat Lab 07/17/19 11:50 Results CULTURE BLOOD [BC] Stat Lab 07/17/19 12:25 Received Sodium Chloride 0.9% [Saline Flush] Med 07/17/19 11:35 Active 10 ml FLUSH ASDIRECTED PRN Blood Culture x2 Reflex Set [OM.PC] Stat Oth 07/17/19 11:36 Ordered Isolation [COMM] Routine Oth 07/17/19 11:37 Active Isolation [COMM] Routine Oth 07/17/19 11:37 Active Peripheral IV Insertion Adult [OM.PC] Stat Oth 07/17/19 11:35 Ordered Medication Orders Acetaminophen (Tylenol) 650 mg PO Q4H PRN PRN Reason: Pain (Mild 1-3)/fever Last Admin: 07/18/19 09:00 Dose: 650 mg Admin: 07/18/19 03:28 Dose: 650 mg Albuterol (Proventil Neb Soln) 2.5 mg NEB Q2H PRN PRN Reason: shortness of breath/wheezing Atorvastatin Calcium (Lipitor) 10 mg PO BEDTIME [facility] Last Admin: 07/17/19 21:13 Dose: 10 mg Famotidine (Pepcid) 20 mg PO DAILY [facility] Last Admin: 07/18/19 09:03 Dose: 20 mg Piperacillin Sod/Tazobactam (Sod 3.375 gm/ Sodium Chloride) 100 mls @ 200 mls/ hr IV Q8HR [facility] Last Infusion: 07/18/19 06:20 Dose: 200 mls/hr Admin: 07/18/19 05:49 Dose: 200 mls/hr Infusion: 07/17/19 22:32 Dose: 200 mls/hr Admin: 07/17/19 22:02 Dose: 200 mls/hr Sodium Chloride (Normal Saline) 1,000 mls @ 125 mls/hr IV ASDIRECTED [facility] Last Admin: 07/18/19 09:56 Dose: 125 mls/hr Infusion: 07/18/19 09:53 Dose: 125 mls/hr Admin: 07/18/19 01:28 Dose: 125 mls/hr Infusion: 07/18/19 01:26 Dose: 125 mls/hr Admin: 07/17/19 16:46 Dose: 125 mls/hr Lamotrigine (Lamotrigine) 150 mg PO BID [facility] Last Admin: 07/18/19 09:03 Dose: 150 mg Admin: 07/17/19 21:13 Dose: 150 mg Levothyroxine Sodium (Synthroid) 100 mcg PO ACBRK [facility] Last Admin: 07/18/19 05:57 Dose: 100 mcg Metformin HCl (Glucophage) 500 mg PO BIDMEALS [facility] Last Admin: 07/18/19 09:03 Dose: 500 mg Acetylcysteine [Nac] (600 MgOwn Med) 600 mg PO BID [facility] Last Admin: 07/18/19 09:10 Dose: 600 mg Admin: 07/17/19 21:27 Dose: 600 mg Olanzapine (Zyprexa) 10 mg PO DAILY [facility] Last Admin: 07/18/19 09:02 Dose: 10 mg Ondansetron HCl (Zofran) 4 mg IVPUSH Q6H PRN PRN Reason: Nausea/Vomiting Propranolol HCl (Inderal) 10 mg PO BID [facility] Last Admin: 07/18/19 09:04 Dose: 10 mg Admin: 07/17/19 21:22 Dose: 10 mg Rivaroxaban (Xarelto) 20 mg PO DAILY [facility] Last Admin: 07/18/19 09:02 Dose: 20 mg Senna/Docusate Sodium (Senna Plus) 2 tab PO TID [facility] Last Admin: 07/18/19 09:02 Dose: 2 tab Admin: 07/17/19 21:13 Dose: 2 tab Sodium Chloride (Saline Flush) 10 ml FLUSH ASDIRECTED PRN PRN Reason: Keep Vein Open Last Admin: 07/17/19 12:35 Dose: 10 ml Labs: Laboratory Tests 07/17/19 07/17/19 07/17/19 Range/Units 11:58 12:00 12:25 WBC 7.6 (5.0-10.0) 10^3/uL RBC 4.84 (4.6-6.2) 10^6/uL Hgb 14.8 (14.0-18.0) g/dL Hct 44.3 (40.0-54.0) % MCV 91.5 (80-100) fL MCH 30.6 (27.0-34.0) pg MCHC 33.4 (33.0-35.0) g/dL Plt Count 329 D (150-450) 10^3/uL Neut % (Auto) 80.3 H (42.2-75.2) % Lymph % (Auto) 9.8 L (20.5-50.1) % [place] % (Auto) 8.2 H (2-8) % Eos % (Auto) 1.6 (1.0-3.0) % Baso % (Auto) 0.1 (0.0-1.0) % ABG pH 7.41 (7.35-7.45) ABG pCO2 44 (35-45) mmHg ABG pO2 84 (70-100) mmHg ABG HCO3 27.3 H (22-26) mmol/L ABG O2 Saturation 97 (95-100) % ABG Base Excess 3 ((-2)-(+3)) mmol/L Jamel Test pos O2 Delivery Device Non rebr mask Oxygen Flow Rate 12 Sodium 141 (136-145) mmol/L Potassium 4.0 (3.5-5.1) mmol/L Chloride 103 (98-107) mmol/L Carbon Dioxide 29 (21-32) mmol/L Anion Gap 13.0 (7-13) mEq/L BUN 12 (7-18) mg/dL Creatinine 0.88 (0.70-1.30) mg/dL Est Cr Clr Drug Dosing TNP Estimated GFR (MDRD) > 60 BUN/Creatinine Ratio 13.6 (No establ ref range) Glucose 123 H (74-99) mg/dL Lactic Acid (0.4-2.0) mmol/L Calcium 8.8 (8.5-10.1) mg/dL Total Bilirubin 0.5 (0.2-1.0) mg/dL AST 30 (15-37) U/L ALT 20 (16-63) U/L Alkaline Phosphatase 107 (46-116) U/L Troponin I < 0.017 (0.000-0.056) ng/mL C-Reactive Protein 13.3 H (0.0-0.9) mg/dL Total Protein 7.6 (6.4-8.2) g/dL Albumin 3.3 L (3.4-5.0) g/dL Globulin 4.3 Albumin/Globulin Ratio 0.77 04//20 Range/Units 12:25 WBC (5.0-10.0) 10^3/uL RBC (4.6-6.2) 10^6/uL Hgb (14.0-18.0) g/dL Hct (40.0-54.0) % MCV (80-100) fL MCH (27.0-34.0) pg MCHC (33.0-35.0) g/dL Plt Count (150-450) 10^3/uL Neut % (Auto) (42.2-75.2) % Lymph % (Auto) (20.5-50.1) % [place] % (Auto) (2-8) % Eos % (Auto) (1.0-3.0) % Baso % (Auto) (0.0-1.0) % ABG pH (7.35-7.45) ABG pCO2 (35-45) mmHg ABG pO2 (70-100) mmHg ABG HCO3 (22-26) mmol/L ABG O2 Saturation (95-100) % ABG Base Excess ((-2)-(+3)) mmol/L Jamel Test O2 Delivery Device Oxygen Flow Rate Sodium (136-145) mmol/L Potassium (3.5-5.1) mmol/L Chloride (98-107) mmol/L Carbon Dioxide (21-32) mmol/L Anion Gap (7-13) mEq/L BUN (7-18) mg/dL Creatinine (0.70-1.30) mg/dL Est Cr Clr Drug Dosing Estimated GFR (MDRD) BUN/Creatinine Ratio (No establ ref range) Glucose (74-99) mg/dL Lactic Acid 1.4 (0.4-2.0) mmol/L Calcium (8.5-10.1) mg/dL Total Bilirubin (0.2-1.0) mg/dL AST (15-37) U/L ALT (16-63) U/L Alkaline Phosphatase (46-116) U/L Troponin I (0.000-0.056) ng/mL C-Reactive Protein (0.0-0.9) mg/dL Total Protein (6.4-8.2) g/dL Albumin (3.4-5.0) g/dL Globulin Albumin/Globulin Ratio Meds: Medications Generic Name Dose Route Start Last Admin Trade Name Freq PRN Reason Stop Dose Admin Acetaminophen 650 mg 07/17/19 14:17 07/18/19 09:00 Tylenol PO 650 mg Q4H PRN Administration Pain (Mild 1-3)/fever Albuterol 2.5 mg 07/17/19 14:17 Proventil Neb Soln NEB Q2H PRN shortness of breath/wheezing Atorvastatin Calcium 10 mg 07/17/19 21:00 07/17/19 21:13 Lipitor PO 10 mg BEDTIME DOE Administration Famotidine 20 mg 07/18/19 09:00 07/18/19 09:03 Pepcid PO 20 mg DAILY DOE Administration Piperacillin Sod/Tazobactam 100 mls @ 200 mls/hr 07/17/19 22:00 07/18/19 06: 20 Sod 3.375 gm/ Sodium Chloride IV Infused Q8HR DOE Infusion Sodium Chloride 1,000 mls @ 125 mls/hr 07/17/19 14:30 07/18/19 09:56 Normal Saline IV 125 mls/hr ASDIRECTED DOE Administration Lamotrigine 150 mg 07/17/19 21:00 07/18/19 09:03 Lamotrigine PO 150 mg BID DOE Administration Levothyroxine Sodium 100 mcg 07/18/19 06:00 07/18/19 05:57 Synthroid PO 100 mcg ACBRK DOE Administration Metformin HCl 500 mg 07/18/19 08:00 07/18/19 09:03 Glucophage PO 500 mg BIDMEALS DOE Administration Acetylcysteine [Nac] 600 mg 07/17/19 21:00 07/18/19 09:10 600 MgOwn Med PO 600 mg BID DOE Administration Olanzapine 10 mg 07/18/19 09:00 07/18/19 09:02 Zyprexa PO 10 mg DAILY DOE Administration Ondansetron HCl 4 mg 07/17/19 14:17 Zofran IVPUSH Q6H PRN Nausea/Vomiting Propranolol HCl 10 mg 07/17/19 21:00 07/18/19 09:04 Inderal PO 10 mg BID DOE Administration Rivaroxaban 20 mg 07/18/19 09:00 07/18/19 09:02 Xarelto PO 20 mg DAILY DOE Administration Senna/Docusate Sodium 2 tab 07/17/19 21:00 07/18/19 09:02 Senna Plus PO 2 tab TID DOE Administration Sodium Chloride 10 ml 07/17/19 11:35 07/17/19 12:35 Saline Flush FLUSH 10 ml ASDIRECTED PRN Administration Keep Vein Open Discontinued Medications Generic Name Dose Route Start Last Admin Trade Name Freq PRN Reason Stop Dose Admin Enoxaparin Sodium 40 mg 07/18/19 09:00 Lovenox SUBCUT DAILY [facility] Lactated Ringer's 1,000 mls @ 1,000 mls/hr 07/17/19 11:51 07/17/19 12:35 Ringers, Lactated IV 07/17/19 12:50 1,000 mls/hr .BOLUS ONE Administration Piperacillin Sod/Tazobactam 100 mls @ 200 mls/hr 07/17/19 13:12 07/17/19 13: 38 Sod 3.375 gm/ Sodium Chloride IV 07/17/19 13:41 200 mls/hr ONETIME ONE Administration - Radiology Interpretation Free Text/Narrative:: Chest x-ray no acute new cardiopulmonary abnormality since comparison films in February 2017 per radiology. - Re-Assessments/Exams Free Text/Narrative Re-Assessment/Exam: 07/17/19 13:07 Initially with the patient obtundation I had assumed that he would be quite hypercapnic which she is not. I did speak with the patient's caregiver at the [facility] as well as his sister and it sounds like since he left the [facility] 2 months ago he has been quite overmedicated and really has been quite sedated ever since that time. It is not uncommon for him to completely fall asleep at the dinner table and fall into his food and sleep in his food. He has been needing assistance with ambulation and really does not do much other than just lay there and sleep since he is come home from the [facility]. They are working to wean down his medication slowly without any improvement so far. 07/17/19 13:08 With his very thick oral secretions and the audible congested cough and hypoxia this really is the presentation of aspiration pneumonia that is not showing up on the CXR so far. I will cover him with Emman for aspiration and talk with the hospitalist about admission for this patient. 07/17/19 14:17 Dr. Grewal came to the ED and saw the patient and will admit for inpatient aspiration pneumonia. Departure - Departure Time of Disposition: 14:00 Disposition: Admitted As Inpatient 66 Clinical Impression: Hypoxia Aspiration pneumonia Qualifiers: Aspiration pneumonia type: unspecified Laterality: unspecified laterality Lung location: unspecified part of lung Qualified Code(s): J69.0 - Pneumonitis due to inhalation of food and vomit Altered mental status Qualifiers: Altered mental status type: unspecified Qualified Code(s): R41.82 - Altered mental status, unspecified - Discharge Information Sepsis Event Note - Evaluation Sepsis Screening Result: No Definite Risk - Focused Exam Date Exam was Performed: 07/18/19 Time Exam was Performed: 10:54 - My Orders Last 24 Hours: My Active Orders 07/17/19 11:35 Sodium Chloride 0.9% [Saline Flush] 10 ml FLUSH ASDIRECTED PRN Peripheral IV Insertion Adult [OM.PC] Stat 07/17/19 11:36 Blood Culture x2 Reflex Set [OM.PC] Stat 07/17/19 11:37 Peripheral IV Care [RC] 09,21 Isolation [COMM] Routine Isolation [COMM] Routine 07/17/19 11:50 CULTURE BLOOD [BC] Stat 07/17/19 12:25 CULTURE BLOOD [BC] Stat - Assessment/Plan Last 24 Hours: My Active Orders 07/17/19 11:35 Sodium Chloride 0.9% [Saline Flush] 10 ml FLUSH ASDIRECTED PRN Peripheral IV Insertion Adult [OM.PC] Stat 07/17/19 11:36 Blood Culture x2 Reflex Set [OM.PC] Stat 07/17/19 11:37 Peripheral IV Care [RC] 09,21 Isolation [COMM] Routine Isolation [COMM] Routine 07/17/19 11:50 CULTURE BLOOD [BC] Stat 07/17/19 12:25 CULTURE BLOOD [BC] Stat Assessment:: Hypoxia most likely from aspiration pneumonia. Altered Mental status ? over medication for the past 2 months. Plan: Admit here at [facility] for inpatient care and management.
[2019-07-17 12:09] LABS: BASE EXCESS ARTERIAL 3 mmol/L ((-2)-(+3)); BICARBONATE,ARTERIAL 27.3 mmol/L (22-26); O2 DELIVERY DEVICE NON REBR MASK; O2 SATURATION ARTERIAL 97 % (95-100); PCO2 ARTERIAL 44 mmHg (35-45); PO2 ARTERIAL 84 mmHg (70-100)
[2019-07-17 12:12] LABS: ALLEN TEST pos; O2 FLOW RATE 12
--- NOTE | 2019-07-17 12:26 | CR ---
EXAMINATION: Chest 1V Frontal SEX: Male AGE: 58 years CLINICAL HISTORY: 58-year-old male with clinical HYPOXIA. INTERPRETATION: (Comparison chest radiographs and 20 February 2017). 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 Some chronic patchy pleural-parenchymal scarring left base noted in retrospect on previous February 2017 films. Mild scoliosis and patient rotation. Normal cardiac silhouette without pulmonary vascular congestion, cephalization of flow or alveolar edema. No lung mass, hilar lymphadenopathy or focal lobar pneumonia. No atelectasis/collapse. No pneumothorax or pneumomediastinum. Tracheal airway and central bronchi unremarkable. CONCLUSION: No acute new cardiopulmonary abnormality since comparison films February 2017.
[2019-07-17 13:02] LABS: CHLORIDE,CL 103 mmol/L (98-107); SODIUM,NA 141 mmol/L (136-145)
[2019-07-17] MEDS ORDERED: Piperacillin/Tazobactam 3.375 GM in Sodium Chloride 0.9% 100 ML IV ONE (13:12)
[2019-07-17] MEDS ORDERED: Ondansetron 4 MG/2 ML SDV IVPUSH PRN (14:17)
[2019-07-17] MEDS ORDERED: Albuterol 0.083% 2.5 MG/3 ML Neb Soln NEB PRN (14:17)
--- NOTE | 2019-07-17 14:37 | PCM.HP ---
H&P History of Present Illness - General Date of Service: 07/17/19 Admit Problem/Dx: Admission Diagnosis/Problem Admission Diagnosis/Problem Aspiration pneumonia of right lung History Limitations: Reports: Altered Mental Status - History of Present Illness Initial Comments - Free Text/Narative: The patient is a 58-year-old man who [facility] the [facility]. Recently had psychiatric hospitalization and subsequently has been intermittently drowsy. He' s on several psychiatric medications. Over the past 2 days it was noted at a [facility] that he has been coughing. This morning he was noted to be hypoxic with saturation in the 70s. Because of the patient was brought to the emergency room. He is disoriented compared to his baseline and not able to provide any history at this point. Continue to be hypoxic and was placed on 4 L/m of oxygen. - Related Data Allergies/Adverse Reactions: Allergies Allergy/AdvReac Type Severity Reaction Status Date / Time cefprozil [From Cefzil] Allergy Cannot Verified 09/08/18 13:31 Remember Cephalosporins Allergy Cannot Verified 09/08/18 13:31 Remember haloperidol [From Haldol] Allergy Cannot Verified 09/08/18 13:31 Remember haloperidol lactate Allergy Cannot Verified 09/08/18 13:31 [From Haldol] Remember Home Medications: Home Meds Levothyroxine [Synthroid] 100 mcg PO DAILY 11/06/13 [History] Rivaroxaban [Xarelto] 20 mg PO DAILY #30 tablet 06/12/14 [Rx] Propranolol [Inderal] 10 mg PO BID 09/08/18 [History] Sennosides/Docusate Sodium [Senna Plus Tablet] 2 tab PO TID 09/08/18 [History] cloZAPine 200 mg PO DAILY 09/08/18 [History] polyethylene glycoL 3350 [MiraLAX] 17 gm PO DAILY 09/08/18 [History] Acetylcysteine [Nac] 600 mg PO BID 07/17/19 [History] ClonazePAM [KlonoPIN] 2 mg PO BID 07/17/19 [History] Famotidine 20 mg PO DAILY 07/17/19 [History] Glycopyrrolate [Robinul] 0.5 mg PO BID 07/17/19 [History] Melatonin 12 mg PO BEDTIME 07/17/19 [History] Mirtazapine [Remeron] 7.5 mg PO BEDTIME 07/17/19 [History] OLANZapine [ZyPREXA] 10 mg PO DAILY 07/17/19 [History] OLANZapine [ZyPREXA] 15 mg PO 1800 07/17/19 [History] lamoTRIgine [Lamotrigine] 150 mg PO BID 07/17/19 [History] metFORMIN [Glucophage] 500 mg PO BIDMEALS 07/17/19 [History] Past Medical History HEENT History: Reports: Impaired Vision, Other (See Below) Other HEENT History: presbyopia Cardiovascular History: Reports: High Cholesterol, Hypertension Respiratory History: Reports: PE, Sleep Apnea Gastrointestinal History: Reports: Chronic Constipation, Other (See Below) Other Gastrointestinal History: gastritis Genitourinary History: Reports: Urinary Incontinence Neurological History: Reports: Seizure, Other (See Below) Psychiatric History: Reports: Anxiety, Other (See Below) Other Psychiatric History: disruptive behavior disorder Endocrine/Metabolic History: Reports: Hypothyroidism, Obesity/BMI 30+ Hematologic History: Reports: None Immunologic History: Reports: None Oncologic (Cancer) History: Reports: None - Infectious Disease History Infectious Disease History: Reports: None - Past Surgical History Head Surgeries/Procedures: Reports: None Musculoskeletal Surgical History: Reports: Hip Replacement Social & Family History - Family History Family Medical History: Unobtainable - Tobacco Use Smoking Status *Q: Never Smoker Second Hand Smoke Exposure: No - Caffeine Use Caffeine Use: Reports: Coffee - Recreational Drug Use Recreational Drug Use: No - Living Situation & Occupation Living situation: Reports: Single, Extended Care Facility Occupation: Disabled H&P Review of Systems - Review of Systems: Review Of Systems: Unable To Obtain Reason Not Obtained: Altered mental status Exam - Exam Exam: See Below - Vital Signs Vital Signs: Last Vital Signs Temp 36.5 C 07/17/19 11:39 Pulse 90 07/17/19 11:39 Resp 22 H 07/17/19 11:39 BP 125/82 07/17/19 11:39 Pulse Ox 98 07/17/19 11:39 Weight: 73.573 kg - Exam Quality Assessment: Supplemental Oxygen General: Sedated HEENT: Mucosa Moist & [place] Neck: Supple, Trachea Midline, 2 Lungs: Decreased Breath Sounds Cardiovascular: Regular Rate GI/Abdominal Exam: Normal Bowel Sounds Skin: Warm, Dry - Patient Data Lab Results Last 24 hrs: Laboratory Results - last 24 hr 07/17/19 07/17/1907/16/20 Range/Units 11:58 12:00 12:25 WBC 7.6 (5.0-10.0) 10^3/uL RBC 4.84 (4.6-6.2) 10^6/uL Hgb 14.8 (14.0-18.0) g/dL Hct 44.3 (40.0-54.0) % MCV 91.5 (80-100) fL MCH 30.6 (27.0-34.0) pg MCHC 33.4 (33.0-35.0) g/dL Plt Count 329 D (150-450) 10^3/uL Neut % (Auto) 80.3 H (42.2-75.2) % Lymph % (Auto) 9.8 L (20.5-50.1) % [place] % (Auto) 8.2 H (2-8) % Eos % (Auto) 1.6 (1.0-3.0) % Baso % (Auto) 0.1 (0.0-1.0) % ABG pH 7.41 (7.35-7.45) ABG pCO2 44 (35-45) mmHg ABG pO2 84 (70-100) mmHg ABG HCO3 27.3 H (22-26) mmol/L ABG O2 Saturation 97 (95-100) % ABG Base Excess 3 ((-2)-(+3)) mmol/L Jamel Test pos O2 Delivery Device Non rebr mask Oxygen Flow Rate 12 Sodium 141 (136-145) mmol/L Potassium 4.0 (3.5-5.1) mmol/L Chloride 103 (98-107) mmol/L Carbon Dioxide 29 (21-32) mmol/L Anion Gap 13.0 (7-13) mEq/L BUN 12 (7-18) mg/dL Creatinine 0.88 (0.70-1.30) mg/dL Est Cr Clr Drug Dosing TNP Estimated GFR (MDRD) > 60 BUN/Creatinine Ratio 13.6 (No establ ref range) Glucose 123 H (74-99) mg/dL Lactic Acid (0.4-2.0) mmol/L Calcium 8.8 (8.5-10.1) mg/dL Total Bilirubin 0.5 (0.2-1.0) mg/dL AST 30 (15-37) U/L ALT 20 (16-63) U/L Alkaline Phosphatase 107 (46-116) U/L Troponin I < 0.017 (0.000-0.056) ng/mL C-Reactive Protein 13.3 H (0.0-0.9) mg/dL Total Protein 7.6 (6.4-8.2) g/dL Albumin 3.3 L (3.4-5.0) g/dL Globulin 4.3 Albumin/Globulin Ratio 0.77 /10/28 Range/Units 12:25 WBC (5.0-10.0) 10^3/uL RBC (4.6-6.2) 10^6/uL Hgb (14.0-18.0) g/dL Hct (40.0-54.0) % MCV (80-100) fL MCH (27.0-34.0) pg MCHC (33.0-35.0) g/dL Plt Count (150-450) 10^3/uL Neut % (Auto) (42.2-75.2) % Lymph % (Auto) (20.5-50.1) % [place] % (Auto) (2-8) % Eos % (Auto) (1.0-3.0) % Baso % (Auto) (0.0-1.0) % ABG pH (7.35-7.45) ABG pCO2 (35-45) mmHg ABG pO2 (70-100) mmHg ABG HCO3 (22-26) mmol/L ABG O2 Saturation (95-100) % ABG Base Excess ((-2)-(+3)) mmol/L Jamel Test O2 Delivery Device Oxygen Flow Rate Sodium (136-145) mmol/L Potassium (3.5-5.1) mmol/L Chloride (98-107) mmol/L Carbon Dioxide (21-32) mmol/L Anion Gap (7-13) mEq/L BUN (7-18) mg/dL Creatinine (0.70-1.30) mg/dL Est Cr Clr Drug Dosing Estimated GFR (MDRD) BUN/Creatinine Ratio (No establ ref range) Glucose (74-99) mg/dL Lactic Acid 1.4 (0.4-2.0) mmol/L Calcium (8.5-10.1) mg/dL Total Bilirubin (0.2-1.0) mg/dL AST (15-37) U/L ALT (16-63) U/L Alkaline Phosphatase (46-116) U/L Troponin I (0.000-0.056) ng/mL C-Reactive Protein (0.0-0.9) mg/dL Total Protein (6.4-8.2) g/dL Albumin (3.4-5.0) g/dL Globulin Albumin/Globulin Ratio Result Diagrams: 07/17/19 11:58 07/17/19 12:25 Simeon Results Last 24 hrs: Microbiology 07/17/19 12:01 Group A Streptococcus Rapid Screen - Final Throat NEGATIVE STREP A SCREEN REFERENCE RANGE: NEGATIVE 07/17/19 11:50 Anaerobic Blood Culture - Final Blood - Venous Problem List Initiated/Reviewed/Updated: Yes Orders Last 24hrs: Active Orders 24 hr Category Date Time Status Patient Status [ADT] Routine ADT 07/17/19 14:17 Ordered Blood Glucose Check, Bedside [RC] QIDACANDBED Care 07/17/19 14:17 Ordered EKG Documentation Completion [RC] STAT Care 07/17/19 11:36 Active Intake and Output [RC] QSHIFT Care 07/17/19 14:19 Ordered Oxygen Therapy [RC] PRN Care 07/17/19 14:17 Ordered Peripheral IV Care [RC] . DIRECTED Care 07/17/19 11:37 Active RT Aerosol Therapy [RC] ASDIRECTED Care 07/17/19 14:22 Ordered Up ad Mary [RC] ASDIRECTED Care 07/17/19 14:17 Ordered VTE/DVT Education [RC] PER UNIT ROUTINE Care 07/17/19 14:17 Ordered Vital Signs [RC] Q4H Care 07/17/19 14:17 Ordered OT Evaluation and Treatment [CONS] Routine Cons 07/17/19 14:17 Ordered PT Evaluation and Treatment [CONS] Routine Cons 07/17/19 14:17 Ordered Nothing per Oral Now Diet [DIET] Diet 07/17/19 Dinner Ordered Chest wo Cont [CT] Urgent Exams 07/17/19 14:30 Ordered Head wo Cont [CT] Urgent Exams 07/17/19 14:31 Ordered BASIC METABOLIC PANEL,BMP [CHEM] AM Lab 07/18/19 05:11 Ordered CBC W/O DIFF,HEMOGRAM [HEME] AM Lab 07/18/19 05:11 Ordered CULTURE BLOOD [BC] Stat Lab 07/17/19 11:50 Results CULTURE BLOOD [BC] Stat Lab 07/17/19 12:25 Received CULTURE SPUTUM + SMEAR [] Stat Lab 07/17/19 14:17 Ordered CULTURE STREP A CONFIRMATION [] Stat Lab 07/17/19 12:01 Results INFLUENZA A+B AG SCREEN [] Stat Lab 07/17/19 11:36 Ordered STREP SCRN A RAPID W CULT CONF [] Stat Lab 07/17/19 12:01 Results UA RFX SIMEON AND CULT IF INDIC [URIN] Stat Lab 07/17/19 11:37 Ordered Acetaminophen [Tylenol] Med 07/17/19 14:17 Ordered 650 mg PO Q4H PRN Acetylcysteine [Nac] Med 07/17/19 21:00 Ordered 600 mg PO BID Albuterol [Proventil Neb Soln] Med 07/17/19 14:17 Ordered 2.5 mg NEB Q2H PRN Enoxaparin [Lovenox] Med 07/18/19 09:00 Ordered 40 mg SUBCUT DAILY Famotidine [Pepcid] Med 07/18/19 09:00 Ordered 20 mg PO DAILY Levothyroxine [Synthroid] Med 07/18/19 09:00 Ordered 100 mcg PO DAILY Ondansetron [Zofran] Med 07/17/19 14:17 Ordered 4 mg IVPUSH Q6H PRN Piperacillin/Tazobactam [Zosyn] 3.375 gm Med 07/17/19 14:30 Ordered Sodium Chloride 0.9% [Normal Saline] 100 ml IV Q8H Propranolol [Inderal] Med 07/17/19 21:00 Ordered 10 mg PO BID Rivaroxaban [Xarelto] Med 07/18/19 09:00 Ordered 20 mg PO DAILY Sodium Chloride 0.9% @ 125 MLS/HR (1000ml) Med 07/17/19 14:30 Ordered Sodium Chloride 0.9% [Normal Saline] 1,000 ml IV ASDIRECTED lamoTRIgine [Lamotrigine] Med 07/17/19 21:00 Ordered 150 mg PO BID Blood Culture x2 Reflex Set [OM.PC] Stat Oth 07/17/19 11:36 Ordered Isolation [COMM] Routine Oth 07/17/19 11:37 Active Isolation [COMM] Routine Oth 07/17/19 11:37 Active Peripheral IV Insertion Adult [OM.PC] Stat Ot 07/17/19 11:35 Ordered Resuscitation Status Routine Resus Stat 07/17/19 14:17 Ordered Medication Orders Acetaminophen (Tylenol) 650 mg PO Q4H PRN PRN Reason: Pain (Mild 1-3)/fever Albuterol (Proventil Neb Soln) 2.5 mg NEB Q2H PRN PRN Reason: shortness of breath/wheezing Enoxaparin Sodium (Lovenox) 40 mg SUBCUT DAILY DOE Famotidine (Pepcid) 20 mg PO DAILY DOE Piperacillin Sod/Tazobactam (Sod 3.375 gm/ Sodium Chloride) 100 mls @ 200 mls/ hr IV Q8H DOE Sodium Chloride (Normal Saline) 1,000 mls @ 125 mls/hr IV ASDIRECTED DOE Levothyroxine Sodium (Synthroid) 100 mcg PO DAILY DOE Non-Formulary Medication (Acetylcysteine [Nac]) 600 mg PO BID DOE Non-Formulary Medication (Lamotrigine [Lamotrigine]) 150 mg PO BID DOE Non-Formulary Medication (Rivaroxaban [Xarelto]) 20 mg PO DAILY DOE Ondansetron HCl (Zofran) 4 mg IVPUSH Q6H PRN PRN Reason: Nausea/Vomiting Propranolol HCl (Inderal) 10 mg PO BID DOE Sodium Chloride (Saline Flush) 10 ml FLUSH ASDIRECTED PRN PRN Reason: Keep Vein Open Last Admin: 07/17/19 12:35 Dose: 10 ml Assessment/Plan Comment:: #. Probable aspiration pneumonia Then drowsy. At risk of aspiration. Chest x-ray however does not show an obvious infiltrate #. Acute hypoxemic respiratory failure #. History of pulmonary embolism On chronic anticoagulation #. Seizure disorder Continue anti-seizure medications #. Acute encephalopathy Likely due to medications Patient is on chronic anticoagulation. I will like to exclude intracranial abnormalities including bleeding #. Hypothyroidism Continue levothyroxine #. Chronic anticoagulation patient is Xeralto continue this Start the patient on intravenous Zosyn Supplemental oxygen Intravenous fluids Send sputum for Gram stain and cultures Obtain CT scan of the chest with pulmonary embolism protocol Obtain CT scan of the head without contrast
--- NOTE | 2019-07-17 15:30 | CT ---
EXAMINATION: Head wo Cont SEX: Male AGE: 58 years CLINICAL HISTORY: Clinical history: 58-year-old hospitalized male with altered mental status (hypoxia). Scan technique: Volume acquisition of data semiemergent unenhanced CT scan of the head and brain obtained with patient lying supine on the Siemens multi slice scanner [place], [place]. All data archived in the PACS system for storage, reformatting axial/sagittal/coronal planes and study (bone/brain windows). Comparison MRI 06 August 2014. Interpretation: Abnormal. 1. Multi-infarct ischemic lesions (lacunar infarcts) involving the basal ganglia (internal capsule) both cerebral hemispheres. 2. Atrophy pattern out of proportion to age but symmetric. Underlying mirror-image normal ventricular system. No hydrocephalus. 3. No supratentorial or posterior fossa mass lesion. Physiologic midline pineal and symmetric choroid plexus calcifications. 4. Cerebellum and brainstem unremarkable. 5. No sign of acute intracerebral, intraventricular, subarachnoid bleed. No extracerebral/intracranial epidural/subdural hematoma. 6. Symmetric clear pneumatization of the paranasal and mastoid sinuses. Normal TMJs. CONCLUSION: Atrophy. Multi-infarct ischemic disease (present on the left and anteriorly on the right, July 2014 MRI). No new intracranial mass, hydrocephalus, ischemic infarct or bleed.
--- NOTE | 2019-07-17 15:41 | CT ---
EXAMINATION: Chest wo Cont SEX: Male AGE: 58 years CLINICAL HISTORY: 58-year-old hospitalized male with HYPOXIA and altered mental status. Scan technique: Volume acquisition of data from the chest abdomen and pelvis obtained without oral or IV contrast while patient was lying supine on the Siemens multislice scanner [place], [place]. All data archived in the PACS system for storage, reformatting axial/sagittal/coronal planes and study. Interpretation: Abnormal. 1. Solitary large round 10 mm in diameter gallstone located at the neck of the distended gallbladder, RUQ. No pericystic fluid. No dilatation intrahepatic biliary ducts. Liver, stomach, spleen, atrophic pancreas and adrenal glands unremarkable. No ascites. 2. Asymmetric elevation right hemidiaphragm with underlying posterior segment right lower lobe (RLL) atelectasis. 3. *Dense pneumonic like (air bronchograms) periaortic consolidation located medially, posterior segment, contralateral LLL. 4. Normal caliber unenhanced thoracic aorta. Normal cardiac silhouette. No pericardial effusions. No pulmonary vascular congestion, alveolar edema or dependent pleural fluid accumulation. 5. No lung mass, other lobar consolidation or significant hilar/mediastinal lymphadenopathy. CONCLUSION: Pneumonic like consolidation (infiltrate and/or atelectasis) posteromedial segment, LLL. Elevation right hemidiaphragm and atelectasis RLL. Diseased gallbladder.
[2019-07-17] MEDS: Sodium Chloride 0.9% 1,000 ML IV SCH (16:46)
[2019-07-17] MEDS: atorvaSTATin 10 MG Tab PO SCH (21:13)
[2019-07-17] MEDS: lamoTRIgine 100 MG Tab PO SCH (21:13)
[2019-07-17] MEDS: Propranolol 10 MG Tab PO SCH (21:22)
[2019-07-17] MEDS: ACETYLCYSTEINE 600 MG PO SCH (21:27)
[2019-07-17] MEDS: Piperacillin/Tazobactam 3.375 GM in Sodium Chloride 0.9% 100 ML IV SCH (22:02)
[2019-07-18] MEDS: Sodium Chloride 0.9% 1,000 ML IV SCH ×3 (01:28→18:20)
[2019-07-18] MEDS: Acetaminophen 325 MG Tab PO PRN ×3 (03:28→15:27)
[2019-07-18] MEDS: Piperacillin/Tazobactam 3.375 GM in Sodium Chloride 0.9% 100 ML IV SCH ×3 (05:49→22:40)
[2019-07-18] MEDS: Levothyroxine 100 MCG Tab PO SCH (05:57)
[2019-07-18 06:46] LABS: ANION GAP 13.6 mEq/L (7-13); CHLORIDE,CL 107 mmol/L (98-107); SODIUM,NA 144 mmol/L (136-145)
[2019-07-18] MEDS ORDERED: Enoxaparin 40 MG/0.4 ML Syringe SUBCUT SCH (09:00)
[2019-07-18] MEDS: Rivaroxaban 10 MG Tab PO SCH (09:02)
[2019-07-18] MEDS: OLANZapine 5 MG Tab PO SCH (09:02)
[2019-07-18] MEDS: Famotidine 20 MG Tab PO SCH (09:03)
[2019-07-18] MEDS: lamoTRIgine 100 MG Tab PO SCH ×2 (09:03→22:32)
[2019-07-18] MEDS: metFORMIN 500 MG Tab PO SCH ×2 (09:03→17:43)
[2019-07-18] MEDS: Propranolol 10 MG Tab PO SCH ×2 (09:04→22:31)
[2019-07-18] MEDS: ACETYLCYSTEINE 600 MG PO SCH (09:10)
--- NOTE | 2019-07-18 10:53 | PCM.PN ---
- General Info Date of Service: 07/18/19 Admission Dx/Problem (Free Text): Admission Diagnosis/Problem Admission Diagnosis/Problem Aspiration pneumonia of right lung Subjective Update: patient continues to require oxygen. he responds to verbal commands but sleepy. discussed with nursing staff. no complaints. I spoke with [facility] in [place] and I was informed that they don't accept transfers that still need medical attention. - Review of Systems Systems Review Comment:: cannot be obtained due to patient's status. - Patient Data Vitals - Most Recent: Last Vital Signs Temp 37.5 C 07/18/19 08:25 Pulse 96 07/18/19 09:04 Resp 22 H 07/18/19 08:25 BP 101/55 L 07/18/19 09:04 Pulse Ox 91 L 07/18/19 08:25 Weight - Most Recent: 73.573 kg I&O - Last 24 Hours: Intake & Output 07/17/19 07/18/19 07/18/19 22:59 06:59 14:59 Intake Total 1203 1045 Balance 1203 1045 Lab Results Last 24 Hours: Laboratory Results - last 24 hr 07/17/19 07/17/19 07/17/19 Range/Units 11:58 12:00 12:25 WBC 7.6 (5.0-10.0) 10^3/uL RBC 4.84 (4.6-6.2) 10^6/uL Hgb 14.8 (14.0-18.0) g/dL Hct 44.3 (40.0-54.0) % MCV 91.5 (80-100) fL MCH 30.6 (27.0-34.0) pg MCHC 33.4 (33.0-35.0) g/dL Plt Count 329 D (150-450) 10^3/uL Neut % (Auto) 80.3 H (42.2-75.2) % Lymph % (Auto) 9.8 L (20.5-50.1) % Mcdonald % (Auto) 8.2 H (2-8) % Eos % (Auto) 1.6 (1.0-3.0) % Baso % (Auto) 0.1 (0.0-1.0) % ABG pH 7.41 (7.35-7.45) ABG pCO2 44 (35-45) mmHg ABG pO2 84 (70-100) mmHg ABG HCO3 27.3 H (22-26) mmol/L ABG O2 Saturation 97 (95-100) % ABG Base Excess 3 ((-2)-(+3)) mmol/L Jamel Test pos O2 Delivery Device Non rebr mask Oxygen Flow Rate 12 Sodium 141 (136-145) mmol/L Potassium 4.0 (3.5-5.1) mmol/L Chloride 103 (98-107) mmol/L Carbon Dioxide 29 (21-32) mmol/L Anion Gap 13.0 (7-13) mEq/L BUN 12 (7-18) mg/dL Creatinine 0.88 (0.70-1.30) mg/dL Est Cr Clr Drug Dosing TNP Estimated GFR (MDRD) > 60 BUN/Creatinine Ratio 13.6 (No establ ref range) Glucose 123 H (74-99) mg/dL POC Glucose (70-105) mg/dl Lactic Acid (0.4-2.0) mmol/L Calcium 8.8 (8.5-10.1) mg/dL Total Bilirubin 0.5 (0.2-1.0) mg/dL AST 30 (15-37) U/L ALT 20 (16-63) U/L Alkaline Phosphatase 107 (46-116) U/L Troponin I < 0.017 (0.000-0.056) ng/mL C-Reactive Protein 13.3 H (0.0-0.9) mg/dL Total Protein 7.6 (6.4-8.2) g/dL Albumin 3.3 L (3.4-5.0) g/dL Globulin 4.3 Albumin/Globulin Ratio 0.77 Urine Color (YELLOW) Urine Appearance (CLEAR) Urine pH (5.0-9.0) Ur Specific [place] (1.005-1.030) Urine Protein (NEGATIVE) Urine Glucose (UA) (NEGATIVE) Urine Ketones (NEGATIVE) Urine Occult Blood (NEGATIVE) Urine Nitrite (NEGATIVE) Urine Bilirubin (NEGATIVE) Urine Urobilinogen (0.2-1.0) mg/dL Ur Leukocyte Esterase (NEGATIVE) Urine RBC /HPF Urine WBC (0-5/HPF) /HPF Ur Epithelial Cells (NOT SEEN) /HPF Amorphous Sediment (NOT SEEN) /HPF Urine Bacteria (0-FEW/HPF) /HPF Urine Mucus (NOT SEEN) /LPF 07/17/19 07/17/19 07/17/19 Range/Units 12:25 17:13 18:10 WBC (5.0-10.0) 10^3/uL RBC (4.6-6.2) 10^6/uL Hgb (14.0-18.0) g/dL Hct (40.0-54.0) % MCV (80-100) fL MCH (27.0-34.0) pg MCHC (33.0-35.0) g/dL Plt Count (150-450) 10^3/uL Neut % (Auto) (42.2-75.2) % Lymph % (Auto) (20.5-50.1) % Mcdonald % (Auto) (2-8) % Eos % (Auto) (1.0-3.0) % Baso % (Auto) (0.0-1.0) % ABG pH (7.35-7.45) ABG pCO2 (35-45) mmHg ABG pO2 (70-100) mmHg ABG HCO3 (22-26) mmol/L ABG O2 Saturation (95-100) % ABG Base Excess ((-2)-(+3)) mmol/L Jamel Test O2 Delivery Device Oxygen Flow Rate Sodium (136-145) mmol/L Potassium (3.5-5.1) mmol/L Chloride (98-107) mmol/L Carbon Dioxide (21-32) mmol/L Anion Gap (7-13) mEq/L BUN (7-18) mg/dL Creatinine (0.70-1.30) mg/dL Est Cr Clr Drug Dosing Estimated GFR (MDRD) BUN/Creatinine Ratio (No establ ref range) Glucose (74-99) mg/dL POC Glucose 109 H (70-105) mg/dl Lactic Acid 1.4 (0.4-2.0) mmol/L Calcium (8.5-10.1) mg/dL Total Bilirubin (0.2-1.0) mg/dL AST (15-37) U/L ALT (16-63) U/L Alkaline Phosphatase (46-116) U/L Troponin I (0.000-0.056) ng/mL C-Reactive Protein (0.0-0.9) mg/dL Total Protein (6.4-8.2) g/dL Albumin (3.4-5.0) g/dL Globulin Albumin/Globulin Ratio Urine Color Dark yellow (YELLOW) Urine Appearance Slightly cloudy (CLEAR) Urine pH 5.5 (5.0-9.0) Ur Specific [place] >= 1.030 (1.005-1.030) Urine Protein 30 H (NEGATIVE) Urine Glucose (UA) Negative (NEGATIVE) Urine Ketones 15 H (NEGATIVE) Urine Occult Blood Negative (NEGATIVE) Urine Nitrite Negative (NEGATIVE) Urine Bilirubin Small H (NEGATIVE) Urine Urobilinogen 1.0 (0.2-1.0) mg/dL Ur Leukocyte Esterase Negative (NEGATIVE) Urine RBC 0-5 /HPF Urine WBC 0-5 (0-5/HPF) /HPF Ur Epithelial Cells Few (NOT SEEN) /HPF Amorphous Sediment Moderate (NOT SEEN) /HPF Urine Bacteria Rare (0-FEW/HPF) /HPF Urine Mucus Moderate H (NOT SEEN) /LPF 07/17/19 07/18/19 07/18/19 Range/Units 20:56 06:08 06:08 WBC 7.8 (5.0-10.0) 10^3/uL RBC 3.96 L (4.6-6.2) 10^6/uL Hgb 12.1 L D (14.0-18.0) g/dL Hct 36.9 L (40.0-54.0) % MCV 93.2 (80-100) fL MCH 30.6 (27.0-34.0) pg MCHC 32.8 L (33.0-35.0) g/dL Plt Count 297 (150-450) 10^3/uL Neut % (Auto) (42.2-75.2) % Lymph % (Auto) (20.5-50.1) % Mcdonald % (Auto) (2-8) % Eos % (Auto) (1.0-3.0) % Baso % (Auto) (0.0-1.0) % ABG pH (7.35-7.45) ABG pCO2 (35-45) mmHg ABG pO2 (70-100) mmHg ABG HCO3 (22-26) mmol/L ABG O2 Saturation (95-100) % ABG Base Excess ((-2)-(+3)) mmol/L Jamel Test O2 Delivery Device Oxygen Flow Rate Sodium 144 (136-145) mmol/L Potassium 3.6 (3.5-5.1) mmol/L Chloride 107 (98-107) mmol/L Carbon Dioxide 27 (21-32) mmol/L Anion Gap 13.6 H (7-13) mEq/L BUN 8 (7-18) mg/dL Creatinine 0.72 (0.70-1.30) mg/dL Est Cr Clr Drug Dosing 116.38 Estimated GFR (MDRD) > 60 BUN/Creatinine Ratio (No establ ref range) Glucose 107 H (74-99) mg/dL POC Glucose 105 (70-105) mg/dl Lactic Acid (0.4-2.0) mmol/L Calcium 8.0 L (8.5-10.1) mg/dL Total Bilirubin (0.2-1.0) mg/dL AST (15-37) U/L ALT (16-63) U/L Alkaline Phosphatase (46-116) U/L Troponin I (0.000-0.056) ng/mL C-Reactive Protein (0.0-0.9) mg/dL Total Protein (6.4-8.2) g/dL Albumin (3.4-5.0) g/dL Globulin Albumin/Globulin Ratio Urine Color (YELLOW) Urine Appearance (CLEAR) Urine pH (5.0-9.0) Ur Specific [place] (1.005-1.030) Urine Protein (NEGATIVE) Urine Glucose (UA) (NEGATIVE) Urine Ketones (NEGATIVE) Urine Occult Blood (NEGATIVE) Urine Nitrite (NEGATIVE) Urine Bilirubin (NEGATIVE) Urine Urobilinogen (0.2-1.0) mg/dL Ur Leukocyte Esterase (NEGATIVE) Urine RBC /HPF Urine WBC (0-5/HPF) /HPF Ur Epithelial Cells (NOT SEEN) /HPF Amorphous Sediment (NOT SEEN) /HPF Urine Bacteria (0-FEW/HPF) /HPF Urine Mucus (NOT SEEN) /LPF 07/18/19 Range/Units 08:01 WBC (5.0-10.0) 10^3/uL RBC (4.6-6.2) 10^6/uL Hgb (14.0-18.0) g/dL Hct (40.0-54.0) % MCV (80-100) fL MCH (27.0-34.0) pg MCHC (33.0-35.0) g/dL Plt Count (150-450) 10^3/uL Neut % (Auto) (42.2-75.2) % Lymph % (Auto) (20.5-50.1) % Mcdonald % (Auto) (2-8) % Eos % (Auto) (1.0-3.0) % Baso % (Auto) (0.0-1.0) % ABG pH (7.35-7.45) ABG pCO2 (35-45) mmHg ABG pO2 (70-100) mmHg ABG HCO3 (22-26) mmol/L ABG O2 Saturation (95-100) % ABG Base Excess ((-2)-(+3)) mmol/L Jamel Test O2 Delivery Device Oxygen Flow Rate Sodium (136-145) mmol/L Potassium (3.5-5.1) mmol/L Chloride (98-107) mmol/L Carbon Dioxide (21-32) mmol/L Anion Gap (7-13) mEq/L BUN (7-18) mg/dL Creatinine (0.70-1.30) mg/dL Est Cr Clr Drug Dosing Estimated GFR (MDRD) BUN/Creatinine Ratio (No establ ref range) Glucose (74-99) mg/dL POC Glucose 95 (70-105) mg/dl Lactic Acid (0.4-2.0) mmol/L Calcium (8.5-10.1) mg/dL Total Bilirubin (0.2-1.0) mg/dL AST (15-37) U/L ALT (16-63) U/L Alkaline Phosphatase (46-116) U/L Troponin I (0.000-0.056) ng/mL C-Reactive Protein (0.0-0.9) mg/dL Total Protein (6.4-8.2) g/dL Albumin (3.4-5.0) g/dL Globulin Albumin/Globulin Ratio Urine Color (YELLOW) Urine Appearance (CLEAR) Urine pH (5.0-9.0) Ur Specific [place] (1.005-1.030) Urine Protein (NEGATIVE) Urine Glucose (UA) (NEGATIVE) Urine Ketones (NEGATIVE) Urine Occult Blood (NEGATIVE) Urine Nitrite (NEGATIVE) Urine Bilirubin (NEGATIVE) Urine Urobilinogen (0.2-1.0) mg/dL Ur Leukocyte Esterase (NEGATIVE) Urine RBC /HPF Urine WBC (0-5/HPF) /HPF Ur Epithelial Cells (NOT SEEN) /HPF Amorphous Sediment (NOT SEEN) /HPF Urine Bacteria (0-FEW/HPF) /HPF Urine Mucus (NOT SEEN) /LPF Simeon Results Last 24 Hours: Microbiology 07/17/19 12:01 Quick Strep Confirmation Culture - Final Throat NO GROUP A STREP ISOLATED REFERENCE RANGE: NEGATIVE Group A Streptococcus Rapid Screen - Final NEGATIVE STREP A SCREEN REFERENCE RANGE: NEGATIVE 07/17/19 17:50 Influenza Type A Antigen Screen - Final Nasopharyngeal Swab NEGATIVE INFLUENZA A VIRUS AG REFERENCE RANGE: NEGATIVE Influenza Type B Antigen Screen - Final NEGATIVE INFLUENZA B VIRUS AG REFERENCE RANGE: NEGATIVE 07/17/19 11:50 Anaerobic Blood Culture - Final Blood - Venous Med Orders - Current: Current Medications Acetaminophen (Tylenol) 650 mg PO Q4H PRN PRN Reason: Pain (Mild 1-3)/fever Last Admin: 07/18/19 09:00 Dose: 650 mg Albuterol (Proventil Neb Soln) 2.5 mg NEB Q2H PRN PRN Reason: shortness of breath/wheezing Atorvastatin Calcium (Lipitor) 10 mg PO BEDTIME [facility] Last Admin: 07/17/19 21:13 Dose: 10 mg Famotidine (Pepcid) 20 mg PO DAILY [facility] Last Admin: 07/18/19 09:03 Dose: 20 mg Piperacillin Sod/Tazobactam (Sod 3.375 gm/ Sodium Chloride) 100 mls @ 200 mls/ hr IV Q8HR [facility] Last Infusion: 07/18/19 06:20 Dose: Infused Sodium Chloride (Normal Saline) 1,000 mls @ 125 mls/hr IV ASDIRECTED [facility] Last Admin: 07/18/19 09:56 Dose: 125 mls/hr Lamotrigine (Lamotrigine) 150 mg PO BID [facility] Last Admin: 07/18/19 09:03 Dose: 150 mg Levothyroxine Sodium (Synthroid) 100 mcg PO ACBRK [facility] Last Admin: 07/18/19 05:57 Dose: 100 mcg Metformin HCl (Glucophage) 500 mg PO BIDMEALS [facility] Last Admin: 07/18/19 09:03 Dose: 500 mg Acetylcysteine [Nac] (600 MgOwn Med) 600 mg PO BID [facility] Last Admin: 07/18/19 09:10 Dose: 600 mg Olanzapine (Zyprexa) 10 mg PO DAILY [facility] Last Admin: 07/18/19 09:02 Dose: 10 mg Ondansetron HCl (Zofran) 4 mg IVPUSH Q6H PRN PRN Reason: Nausea/Vomiting Propranolol HCl (Inderal) 10 mg PO BID [facility] Last Admin: 07/18/19 09:04 Dose: 10 mg Rivaroxaban (Xarelto) 20 mg PO DAILY [facility] Last Admin: 07/18/19 09:02 Dose: 20 mg Senna/Docusate Sodium (Senna Plus) 2 tab PO TID [facility] Last Admin: 07/18/19 09:02 Dose: 2 tab Sodium Chloride (Saline Flush) 10 ml FLUSH ASDIRECTED PRN PRN Reason: Keep Vein Open Last Admin: 07/17/19 12:35 Dose: 10 ml Discontinued Medications Enoxaparin Sodium (Lovenox) 40 mg SUBCUT DAILY [facility] Lactated Ringer's (Ringers, Lactated) 1,000 mls @ 1,000 mls/hr IV .BOLUS ONE Stop: 07/17/19 12:50 Last Admin: 07/17/19 12:35 Dose: 1,000 mls/hr Piperacillin Sod/Tazobactam (Sod 3.375 gm/ Sodium Chloride) 100 mls @ 200 mls/ hr IV ONETIME ONE Stop: 07/17/19 13:41 Last Admin: 07/17/19 13:38 Dose: 200 mls/hr - Exam General: No Acute Distress Lungs: Rhonchi Cardiovascular: Regular Rate, Regular Rhythm GI/Abdominal Exam: Normal Bowel Sounds, Soft, Non-Tender Neurological: No New Focal Deficit Sepsis Event Note - Evaluation Sepsis Screening Result: Sepsis Risk - Focused Exam Vital Signs: Vital Signs Temp Pulse Pulse Resp BP BP BP 07/18/19 09:04 96 101/55 L 07/18/19 08:25 37.5 C 96 22 H 101/55 L 07/18/19 04:37 38.1 C 07/18/19 03:26 38.5 C H 101 H 24 H 113/65 07/17/19 23:00 37.5 C 88 20 110/64 Pulse Ox 07/18/19 09:04 07/18/19 08:25 91 L 07/18/19 04:37 07/18/19 03:26 92 L 07/17/19 23:00 92 L Date Exam was Performed: 07/18/19 Time Exam was Performed: 10:49 - Problem List Review Problem List Initiated/Reviewed/Updated: Yes - Plan Plan:: #. Probable aspiration pneumonia continues to be drowsy At risk of aspiration. Chest x-ray however does not show an obvious infiltrate #. Acute hypoxemic respiratory failure wean down O2 as tolerated #. History of pulmonary embolism On chronic anticoagulation #. Seizure disorder Continue anti-seizure medications #. Acute encephalopathy Likely due to medications Patient is on chronic anticoagulation. CT head was negative #. Hypothyroidism Continue levothyroxine #. Chronic anticoagulation patient is Xeralto
[2019-07-18] MEDS: CLOZAPINE 100 MG PO SCH (14:33)
[2019-07-18] MEDS: atorvaSTATin 10 MG Tab PO SCH (22:32)
[2019-07-19] MEDS: Acetaminophen 325 MG Tab PO PRN ×3 (01:29→17:37)
[2019-07-19] MEDS: Sodium Chloride 0.9% 1,000 ML IV SCH ×3 (02:55→19:37)
[2019-07-19] MEDS: Levothyroxine 100 MCG Tab PO SCH (05:44)
[2019-07-19] MEDS: Piperacillin/Tazobactam 3.375 GM in Sodium Chloride 0.9% 100 ML IV SCH ×3 (05:45→22:15)
[2019-07-19] MEDS: metFORMIN 500 MG Tab PO SCH ×2 (08:52→17:19)
[2019-07-19] MEDS: CLOZAPINE 100 MG PO SCH (08:53)
[2019-07-19] MEDS: Propranolol 10 MG Tab PO SCH ×2 (08:54→21:11)
[2019-07-19] MEDS: lamoTRIgine 100 MG Tab PO SCH ×2 (08:55→21:09)
[2019-07-19] MEDS: Famotidine 20 MG Tab PO SCH (08:56)
[2019-07-19] MEDS: Rivaroxaban 10 MG Tab PO SCH (08:57)
[2019-07-19] MEDS: OLANZapine 5 MG Tab PO SCH (08:57)
--- NOTE | 2019-07-19 09:08 | PCM.PN ---
- General Info Date of Service: 07/19/19 Admission Dx/Problem (Free Text): Admission Diagnosis/Problem Admission Diagnosis/Problem Aspiration pneumonia of right lung Subjective Update: patient continues to be sleepy. [facility] was contacted and they don't take patients that need acute medical care. Patient guardian refused transfer as well. patient is still not eating. - Review of Systems Systems Review Comment:: cannot be obtained due to patient status. - Patient Data Vitals - Most Recent: Last Vital Signs Temp 37.1 C 07/19/19 08:07 Pulse 89 07/19/19 08:54 Resp 20 07/19/19 08:07 BP 117/71 07/19/19 08:54 Pulse Ox 95 07/19/19 08:07 Weight - Most Recent: 73.573 kg I&O - Last 24 Hours: Intake & Output 07/18/19 07/19/19 07/19/19 22:59 06:59 14:59 Intake Total 1100 1325 Output Total 2 Balance 1100 1323 Lab Results Last 24 Hours: Laboratory Results - last 24 hr 07/18/19 07/18/19 07/18/19 Range/Units 11:35 16:44 20:43 POC Glucose 92 104 109 H (70-105) mg/dl 07/19/19 Range/Units 07:50 POC Glucose 96 (70-105) mg/dl Simeon Results Last 24 Hours: Microbiology 07/17/19 12:25 Aerobic Blood Culture - Preliminary Blood - Venous - Lab Draw NO GROWTH AFTER 1 DAY Anaerobic Blood Culture - Preliminary NO GROWTH AFTER 1 DAY 07/17/19 11:50 Aerobic Blood Culture - Preliminary Blood - Venous NO GROWTH AFTER 1 DAY Anaerobic Blood Culture - Final 07/17/19 12:01 Quick Strep Confirmation Culture - Final Throat NO GROUP A STREP ISOLATED REFERENCE RANGE: NEGATIVE Group A Streptococcus Rapid Screen - Final NEGATIVE STREP A SCREEN REFERENCE RANGE: NEGATIVE Med Orders - Current: Current Medications Acetaminophen (Tylenol) 650 mg PO Q4H PRN PRN Reason: Pain (Mild 1-3)/fever Last Admin: 07/19/19 01:29 Dose: 650 mg Albuterol (Proventil Neb Soln) 2.5 mg NEB Q2H PRN PRN Reason: shortness of breath/wheezing Atorvastatin Calcium (Lipitor) 10 mg PO BEDTIME [facility]E Last Admin: 07/18/19 22:32 Dose: 10 mg Famotidine (Pepcid) 20 mg PO DAILY [facility] Last Admin: 07/19/19 08:56 Dose: 20 mg Piperacillin Sod/Tazobactam (Sod 3.375 gm/ Sodium Chloride) 100 mls @ 200 mls/ hr IV Q8HR [facility] Last Admin: 07/19/19 05:45 Dose: 200 mls/hr Sodium Chloride (Normal Saline) 1,000 mls @ 125 mls/hr IV ASDIRECTED [facility] Last Admin: 07/19/19 02:55 Dose: 125 mls/hr Lamotrigine (Lamotrigine) 150 mg PO BID [facility] Last Admin: 07/19/19 08:55 Dose: 150 mg Levothyroxine Sodium (Synthroid) 100 mcg PO ACBRK [facility] Last Admin: 07/19/19 05:44 Dose: 100 mcg Metformin HCl (Glucophage) 500 mg PO BIDMEALS [facility] Last Admin: 07/19/19 08:52 Dose: 500 mg Olanzapine (Zyprexa) 10 mg PO DAILY [facility] Last Admin: 07/19/19 08:57 Dose: 10 mg Ondansetron HCl (Zofran) 4 mg IVPUSH Q6H PRN PRN Reason: Nausea/Vomiting Clozapine 100 Mg Tab (*Own Med*) 0 each PO BID@0800,1800 [facility] Last Admin: 07/19/19 08:53 Dose: 1 each Propranolol HCl (Inderal) 10 mg PO BID [facility] Last Admin: 07/19/19 08:54 Dose: 10 mg Rivaroxaban (Xarelto) 20 mg PO DAILY [facility] Last Admin: 07/19/19 08:57 Dose: 20 mg Senna/Docusate Sodium (Senna Plus) 2 tab PO TID [facility] Last Admin: 07/19/19 08:57 Dose: 2 tab Sodium Chloride (Saline Flush) 10 ml FLUSH ASDIRECTED PRN PRN Reason: Keep Vein Open Last Admin: 07/17/19 12:35 Dose: 10 ml Discontinued Medications Enoxaparin Sodium (Lovenox) 40 mg SUBCUT DAILY [facility] Lactated Ringer's (Ringers, Lactated) 1,000 mls @ 1,000 mls/hr IV .BOLUS ONE Stop: 07/17/19 12:50 Last Admin: 07/17/19 12:35 Dose: 1,000 mls/hr Piperacillin Sod/Tazobactam (Sod 3.375 gm/ Sodium Chloride) 100 mls @ 200 mls/ hr IV ONETIME ONE Stop: 07/17/19 13:41 Last Admin: 07/17/19 13:38 Dose: 200 mls/hr Acetylcysteine [Nac] (600 MgOwn Med) 600 mg PO BID [facility] Last Admin: 07/18/19 09:10 Dose: 600 mg Clozapine 50 Mg Tab (Own Med) 0 each PO BEDTIME DOE - Exam General: Other (sleepy) Lungs: Clear to Auscultation, Normal Respiratory Effort Cardiovascular: Regular Rate, Regular Rhythm GI/Abdominal Exam: Normal Bowel Sounds, Soft, Non-Tender Skin: Warm, Dry Sepsis Event Note - Evaluation Sepsis Screening Result: Sepsis Risk - Focused Exam Vital Signs: Vital Signs Temp Pulse Pulse Resp BP BP BP 07/19/19 08:54 89 117/71 07/19/19 08:07 37.1 C 89 20 117/71 07/19/19 01:05 38.2 C H 112 H 34 H 07/18/19 22:49 37.7 C 106 H 30 H 120/69 07/18/19 22:31 102 H 118/72 Pulse Ox 07/19/19 08:54 07/19/19 08:07 95 07/19/19 01:05 07/18/19 22:49 93 L 07/18/19 22:31 Date Exam was Performed: 07/19/19 Time Exam was Performed: 09:51 - Problem List Review Problem List Initiated/Reviewed/Updated: Yes - My Orders Last 24 Hours: My Active Orders 07/18/19 14:30 Patient's Own Medication [Ptom] 0 each PO BID@0800,1800 07/18/19 Dinner Pureed Diet [DIET] Thickened Liquids [DIET] 07/19/19 06:17 CLOZAPINE (CLOZARIL), SERUM [REF] Routine 07/19/19 09:15 ClonazePAM [KlonoPIN] 2 mg PO DAILY 07/19/19 18:30 OLANZapine [ZyPREXA] 15 mg PO PCDINNER 07/19/19 21:00 ClonazePAM [KlonoPIN] 1 mg PO BEDTIME - Plan Plan:: #. Probable aspiration pneumonia continues to be drowsy At risk of aspiration. continue current antibiotisc #. Acute hypoxemic respiratory failure wean down O2 as tolerated #. History of pulmonary embolism On chronic anticoagulation #. Seizure disorder Continue anti-seizure medications Psychiatry PA is helping adjustment of patient anti anxiety/antipsychotics #. Acute encephalopathy Likely due to medications Patient is on chronic anticoagulation. CT head was negative #. Hypothyroidism Continue levothyroxine #. Chronic anticoagulation patient is Xeralto
[2019-07-19] MEDS ORDERED: ClonazePAM 0.5 MG Tab PO SCH ×5 (09:15→21:00)
[2019-07-19] MEDS ORDERED: CLONAZEPAM 1.5 MG PO SCH (18:00)
[2019-07-19] MEDS ORDERED: OLANZapine 5 MG Tab PO SCH (18:30)
[2019-07-19] MEDS: atorvaSTATin 10 MG Tab PO SCH (21:09)
[2019-07-20] MEDS: Sodium Chloride 0.9% 1,000 ML IV SCH ×2 (04:03→12:23)
[2019-07-20] MEDS: Piperacillin/Tazobactam 3.375 GM in Sodium Chloride 0.9% 100 ML IV SCH (05:28)
[2019-07-20] MEDS: Levothyroxine 100 MCG Tab PO SCH (07:02)
[2019-07-20 08:13] VITALS: BP 115/61
[2019-07-20] MEDS: metFORMIN 500 MG Tab PO SCH (09:55)
[2019-07-20] MEDS: Propranolol 10 MG Tab PO SCH (09:55)
[2019-07-20] MEDS: Rivaroxaban 10 MG Tab PO SCH (09:56)
[2019-07-20] MEDS: OLANZapine 5 MG Tab PO SCH (09:57)
[2019-07-20] MEDS: lamoTRIgine 100 MG Tab PO SCH (09:57)
[2019-07-20] MEDS: Famotidine 20 MG Tab PO SCH (09:57)
--- NOTE | 2019-07-20 10:30 | PCM.DCSUM1 ---
Discharge Summary - Hospital Course Free Text/Narrative:: Mr. Archer is a 58-year-old man who resides at the shelter. Recently had psychiatric hospitalization and subsequently has been intermittently drowsy. He' s on several psychiatric medications. 2 days prior to admission, it was noted at a shelter that he has been coughing. On the day of admission patient was found to be hypoxic and he was brought to the emergency room. Patient started on treatment for aspiration pneumonia. His mental status did not improve significantly since admission. Patient oral intake is poor due to mental status. Patient primary psychiatry PA was adjusting down his antipsychotics. Given that patient is likely malnourished, who is transferred to [facility] for Placement of feeding tube. Guardian approved transfer. Patient was weaned down to 1 L nasal cannula. He was still on Zosyn at time of discharge. - Discharge Data Discharge Date: 07/20/19 Discharge Disposition: DC/Tfer to Acute Hospital 02 Condition: Fair - Referral to Home Health Primary Care Physician: PCP Unobtainable - Patient Summary/Data Consults: Consultations 07/17/19 14:17 OT Evaluation and Treatment [CONS] Routine PT Evaluation and Treatment [CONS] Routine - Patient Instructions Diet: NPO - Discharge Plan *PRESCRIPTION DRUG MONITORING PROGRAM REVIEWED*: No *COPY OF PRESCRIPTION DRUG MONITORING REPORT IN PATIENT MARIBELL: No Home Medications: Home Meds Levothyroxine [Synthroid] 100 mcg PO DAILY 11/06/13 [History] Rivaroxaban [Xarelto] 20 mg PO DAILY #30 tablet 06/12/14 [Rx] Propranolol [Inderal] 10 mg PO BID 09/08/18 [History] Sennosides/Docusate Sodium [Senna Plus Tablet] 2 tab PO TID 09/08/18 [History] polyethylene glycoL 3350 [MiraLAX] 17 gm PO DAILY 09/08/18 [History] Famotidine 20 mg PO DAILY 07/17/19 [History] Glycopyrrolate [Robinul] 0.5 mg PO BID 07/17/19 [History] OLANZapine [ZyPREXA] 10 mg PO DAILY@1200 07/17/19 [History] atorvaSTATin [Lipitor] 10 mg PO BEDTIME 07/17/19 [History] cloZAPine 150 mg PO BID@0800,1800 07/17/19 [History] lamoTRIgine [Lamotrigine] 150 mg PO BID 07/17/19 [History] metFORMIN [Glucophage] 500 mg PO BIDMEALS 07/17/19 [History] Bisacodyl [Dulcolax] 15 mg PO DAILY PRN 07/18/19 [History] Ipratropium/Albuterol Sulfate [Iprat-Albut 0.5-3(2.5) mg/3 ml] 3 ml NEB BID 11/28 [History] OLANZapine [ZyPREXA] 15 mg PO DAILY@1800 07/18/19 [History] clonazePAM [Klonopin] 0.25 mg PO DAILY@1800 07/18/19 [History] Piperacillin/Tazobactam [Zosyn] 3.375 gm IV Q8HR vial 07/20/19 [Rx] Oxygen Therapy Mode: Nasal Cannula (1 L) Referrals: PCP,Unobtain [Primary Care Provider] - - Discharge Summary/Plan Comment DC Time >30 min.: Yes - Patient Data Vitals - Most Recent: Last Vital Signs Temp 36.8 C 07/20/19 08:13 Pulse 84 07/20/19 09:55 Resp 20 07/20/19 08:13 BP 115/61 07/20/19 09:55 Pulse Ox 91 L 07/20/19 10:28 Weight - Most Recent: 73.573 kg I&O - Last 24 hours: Intake & Output 07/19/19 07/20/19 07/20/19 22:59 06:59 14:59 Intake Total 1650 1496 10 Balance 1650 1496 10 Lab Results - Last 24 hrs: Laboratory Results - last 24 hr 07/19/19 07/19/19 07/19/19 Range/Units 11:26 16:46 20:57 POC Glucose 94 93 92 (70-105) mg/dl 07/20/19 07/20/19 Range/Units 05:34 07:38 POC Glucose 85 85 (70-105) mg/dl NIDA Results - Last 24 hrs: Microbiology 07/17/19 12:25 Aerobic Blood Culture - Preliminary Blood - Venous - Lab Draw NO GROWTH AFTER 2 DAYS Anaerobic Blood Culture - Preliminary NO GROWTH AFTER 2 DAYS 07/17/19 11:50 Aerobic Blood Culture - Preliminary Blood - Venous NO GROWTH AFTER 2 DAYS Anaerobic Blood Culture - Final Med Orders - Current: Current Medications Acetaminophen (Tylenol) 650 mg PO Q4H PRN PRN Reason: Pain (Mild 1-3)/fever Last Admin: 07/19/19 17:37 Dose: 650 mg Albuterol (Proventil Neb Soln) 2.5 mg NEB Q2H PRN PRN Reason: shortness of breath/wheezing Atorvastatin Calcium (Lipitor) 10 mg PO BEDTIME [facility] Last Admin: 07/19/19 21:09 Dose: 10 mg Clonazepam (Klonopin) 0.5 mg PO BID@1200,1800 [facility] Last Admin: 07/19/19 17:19 Dose: 0.5 mg Famotidine (Pepcid) 20 mg PO DAILY [facility] Last Admin: 07/20/19 09:57 Dose: 20 mg Piperacillin Sod/Tazobactam (Sod 3.375 gm/ Sodium Chloride) 100 mls @ 200 mls/ hr IV Q8HR [facility] Last Infusion: 07/20/19 06:00 Dose: Infused Sodium Chloride (Normal Saline) 1,000 mls @ 125 mls/hr IV ASDIRECTED [facility] Last Admin: 07/20/19 04:03 Dose: 125 mls/hr Lamotrigine (Lamotrigine) 150 mg PO BID [facility] Last Admin: 07/20/19 09:57 Dose: 150 mg Levothyroxine Sodium (Synthroid) 100 mcg PO ACBRK [facility] Last Admin: 07/20/19 07:02 Dose: Not Given Metformin HCl (Glucophage) 500 mg PO BIDMEALS [facility] Last Admin: 07/20/19 09:55 Dose: 500 mg Olanzapine (Zyprexa) 10 mg PO DAILY [facility] Last Admin: 07/20/19 09:57 Dose: 10 mg Olanzapine (Zyprexa) 15 mg PO DAILY@1800 [facility] Ondansetron HCl (Zofran) 4 mg IVPUSH Q6H PRN PRN Reason: Nausea/Vomiting Clozapine 100 Mg Tab (Own Med) 175 each PO BID [facility] Last Admin: 07/20/19 09:58 Dose: 175 each Propranolol HCl (Inderal) 10 mg PO BID [facility] Last Admin: 07/20/19 09:55 Dose: 10 mg Rivaroxaban (Xarelto) 20 mg PO DAILY [facility] Last Admin: 07/20/19 09:56 Dose: 20 mg Senna/Docusate Sodium (Senna Plus) 2 tab PO TID [facility] Last Admin: 07/20/19 09:56 Dose: 2 tab Sodium Chloride (Saline Flush) 10 ml FLUSH ASDIRECTED PRN PRN Reason: Keep Vein Open Last Admin: 07/17/19 12:35 Dose: 10 ml Discontinued Medications Clonazepam (Klonopin) 2 mg PO DAILY [facility] Clonazepam (Klonopin) 1 mg PO BEDTIME DOE Clonazepam (Klonopin) 1 mg PO DAILY@1200 [facility] Last Admin: 07/19/19 12:15 Dose: 1 mg Clonazepam (Klonopin) 1 mg PO DAILY@1800 [facility] Enoxaparin Sodium (Lovenox) 40 mg SUBCUT DAILY [facility] Lactated Ringer's (Ringers, Lactated) 1,000 mls @ 1,000 mls/hr IV .BOLUS ONE Stop: 07/17/19 12:50 Last Admin: 07/17/19 12:35 Dose: 1,000 mls/hr Piperacillin Sod/Tazobactam (Sod 3.375 gm/ Sodium Chloride) 100 mls @ 200 mls/ hr IV ONETIME ONE Stop: 07/17/19 13:41 Last Admin: 07/17/19 13:38 Dose: 200 mls/hr Acetylcysteine [Nac] (600 MgOwn Med) 600 mg PO BID [facility] Last Admin: 07/18/19 09:10 Dose: 600 mg Non-Formulary Medication (Clonazepam [Klonopin]) 1.5 mg PO DAILY@1800 [facility] Olanzapine (Zyprexa) 15 mg PO PCDINNER [facility] Clozapine 100 Mg Tab (*Own Med*) 0 each PO BID@0800,1800 [facility] Last Admin: 07/19/19 08:53 Dose: 1 each Clozapine 50 Mg Tab (Own Med) 0 each PO BEDTIME [facility] - Exam General: Reports: Lethargic (Somewhat arousable to voice but unable to stay awake for prolonged periods) Lungs: Reports: Rhonchi Cardiovascular: Reports: Regular Rate, Regular Rhythm GI/Abdominal Exam: Normal Bowel Sounds, Soft, Non-Tender Extremities: Normal Inspection, No Pedal Edema Skin: Reports: Warm, Dry, Intact
[2019-07-20] MEDS: Acetaminophen 325 MG Tab PO PRN (12:37)
[2019-07-20 13:12] VITALS: PULSE 63
[2019-07-20] MEDS ORDERED: OLANZapine 5 MG Tab PO SCH (18:00)
[2019-07-20] MEDS ORDERED: ClonazePAM 0.5 MG Tab PO SCH (18:00)
== END 2019-07-20 13:00 | DRG 177 ==
LOC: DL.ED 11:29 → OBSVTOIN 14:17 → DL.MS 14:17 → DL.ED 14:22 → UNDOADMOB 14:28 → DL.MS 14:28
PROVIDERS: ADMIT Hospitalist; ATTEND Internal Medicine
DX: J69.0 Pneumonitis due to inhalation of food and vomit (principal); R41.82 Altered mental status, unspecified; R09.02 Hypoxemia; J96.01 Acute respiratory failure with hypoxia; G93.40 Encephalopathy, unspecified; H54.7 Unspecified visual loss; H52.4 Presbyopia; E78.00 Pure hypercholesterolemia, unspecified; I10 Essential (primary) hypertension; G47.30 Sleep apnea, unspecified; K59.09 Other constipation; R41.9 Unspecified symptoms and signs involving cognitive functions and awareness; F91.8 Other conduct disorders; R32 Unspecified urinary incontinence; F41.9 Anxiety disorder, unspecified; E03.9 Hypothyroidism, unspecified; E66.9 Obesity, unspecified; Z96.649 Presence of unspecified artificial hip joint; F91.9 Conduct disorder, unspecified; G40.909 Epilepsy, unspecified, not intractable, without status epilepticus; Z79.890 Hormone replacement therapy; Z79.84 Long term (current) use of oral hypoglycemic drugs; Z79.899 Other long term (current) drug therapy; Z88.1 Allergy status to other antibiotic agents; Z88.8 Allergy status to other drugs, medicaments and biological substances; Z86.711 Personal history of pulmonary embolism; Z79.01 Long term (current) use of anticoagulants; Z68.22 Body mass index [BMI] 22.0-22.9, adult
CPT/HCPCS: 36415; 36600; 71045; 80053; 82803; 83605; 84484; 85025; 86140; 87040 ×2; 87081; 87430; 93005; 93010; 96361; 96365; 99284; 99285; J2543; J7050; J7120; 70450; 71250; 80048; 80159; 81001; 82962; 85027; 87804; 94760; A9270-GY; J7030

== ENCOUNTER 2019-08-01 12:54 | Inpatient (IN) | payer MEDICARE, MEDICAID ==
[2019-08-01] MEDS ORDERED: Metoclopramide 10 MG/2 ML SDV IVPUSH ONE (13:00)
--- NOTE | 2019-08-01 13:16 | EDM.PDOC ---
ED HPI GENERAL MEDICAL PROBLEM - General Stated Complaint: UNKNOWN Time Seen by Provider: 08/01/19 12:55 Source of Information: Reports: Patient, EMS, EMS Notes Reviewed, Family, RN, RN Notes Reviewed, Other (detention records) History Limitations: Reports: Altered Mental Status, Respiratory Distress - History of Present Illness INITIAL COMMENTS - FREE TEXT/NARRATIVE: Presents to ER per [facility] with complaint of increased respirations, vomiting, possible aspiration pneumonia. Patient has altered mental status, and is developmentally disabled. When visiting with the sister who is legal guardian and POA on the phone, she states the patient was hospitalized in [facility] for 1 year and 5 months. Patient was placed at [facility] on June 15, 2019. On July 17, 2019, the patient was admitted for possible pneumonia to [facility]. On July 19 the patient was transferred to [facility]. On July 22 a gastric tube was placed. On July 30 patient was discharged from [facility] to [facility]. Staff state they noticed coughing vomiting and a rattle he sound in his chest, as well as low oxygen saturation, so ambulance was called. Upon visiting with the sister who is the legal guardian as well as the POA, patient had been a full code. Sister states she has discussed this with family and they have decided no CPR, no intubation. Patient has a history of seizure disorder, diabetes, developmentally disabled, DVT, hypothyroidism, psychoses. Onset: Today - Related Data Allergies Allergy/AdvReac Type Severity Reaction Status Date / Time cefprozil [From Cefzil] Allergy Cannot Verified 08/01/19 13:39 Remember Cephalosporins Allergy Cannot Verified 08/01/19 13:39 Remember haloperidol [From Haldol] Allergy Cannot Verified 08/01/19 13:39 Remember haloperidol lactate Allergy Cannot Verified 08/01/19 13:39 [From Haldol] Remember Home Meds: Home Meds Levothyroxine [Synthroid] 100 mcg GTUBE DAILY 11/06/13 [History] Rivaroxaban [Xarelto] 20 mg PO DAILY #30 tablet 06/12/14 [Rx] Propranolol [Inderal] 10 mg PO BID 09/08/18 [History] Sennosides/Docusate Sodium [Senna Plus Tablet] 2 tab PO TID 09/08/18 [History] polyethylene glycoL 3350 [MiraLAX] 17 gm PO DAILY 09/08/18 [History] Famotidine 20 mg PO DAILY 07/17/19 [History] Glycopyrrolate [Robinul] 0.5 mg PO BID 07/17/19 [History] OLANZapine [ZyPREXA] 10 mg PO DAILY@1200 07/17/19 [History] atorvaSTATin [Lipitor] 10 mg GTUBE BEDTIME 07/17/19 [History] cloZAPine 150 mg PO BID@0800,1800 07/17/19 [History] lamoTRIgine [Lamotrigine] 150 mg PO BID 07/17/19 [History] metFORMIN [Glucophage] 500 mg GTUBE BIDMEALS 07/17/19 [History] Ipratropium/Albuterol Sulfate [Iprat-Albut 0.5-3(2.5) mg/3 ml] 3 ml NEB BID 11/28 [History] OLANZapine [ZyPREXA] 15 mg PO DAILY@1800 07/18/19 [History] bisacodyL [Dulcolax] 15 mg PO DAILY PRN 07/18/19 [History] clonazePAM [Klonopin] 0.25 mg PO DAILY@1800 07/18/19 [History] Piperacillin/Tazobactam [Zosyn] 3.375 gm IV Q8HR vial 07/20/19 [Rx] Bromocriptine Mesylate [Parlodel] 5 tab GTUBE DAILY 08/01/19 [History] levETIRAcetam [Keppra] 5 ml GTUBE BID 08/01/19 [History] Past Medical History HEENT History: Reports: Impaired Vision, Other (See Below) Other HEENT History: presbyopia Cardiovascular History: Reports: High Cholesterol, Hypertension Respiratory History: Reports: PE, Sleep Apnea Gastrointestinal History: Reports: Chronic Constipation, Other (See Below) Other Gastrointestinal History: gastritis Genitourinary History: Reports: Urinary Incontinence Neurological History: Reports: Seizure, Other (See Below) Psychiatric History: Reports: Anxiety, Other (See Below) Other Psychiatric History: disruptive behavior disorder Endocrine/Metabolic History: Reports: Hypothyroidism, Obesity/BMI 30+ Hematologic History: Reports: None Immunologic History: Reports: None Oncologic (Cancer) History: Reports: None Dermatologic History: Reports: Eczema - Infectious Disease History Infectious Disease History: Reports: None - Past Surgical History Head Surgeries/Procedures: Reports: None Musculoskeletal Surgical History: Reports: Hip Replacement Social & Family History - Family History Family Medical History: Unobtainable - Caffeine Use Caffeine Use: Reports: Coffee - Living Situation & Occupation Living situation: Reports: Single, Extended Care Facility Occupation: Disabled ED ROS GENERAL - Review of Systems Review Of Systems: Comprehensive ROS is negative, except as noted in HPI. ED EXAM, GENERAL - Physical Exam Exam: See Below Exam Limited By: Altered Mental Status General Appearance: Lethargic Eye Exam: Bilateral Eye: EOMI, Normal Inspection Ears: Normal External Exam, Hearing Grossly Normal Nose: Normal Inspection Throat/Mouth: Normal Inspection, No Airway Compromise Head: Atraumatic, Normocephalic Neck: Normal Inspection, Supple, Non-Tender, Full Range of Motion Respiratory/Chest: Decreased Breath Sounds, Other (gurgling heard in the throat) Cardiovascular: Normal Peripheral Pulses, Regular Rate, Rhythm, No Edema, No Gallop, No JVD, No Murmur, No Rub Peripheral Pulses: 2+: Radial (L), Radial (R) GI/Abdominal: Normal Bowel Sounds, Soft, Non-Tender, Other (G tube present) (Male) Exam: Deferred, Other (Brief) Rectal (Males) Exam: Deferred Back Exam: Normal Inspection Extremities: Normal Inspection, Non-Tender, No Pedal Edema, Normal Capillary Refill Neurological: Other (Lethargic, does not answer questions) Psychiatric: Depressed Mood, Flat Affect Skin Exam: Warm, Dry, Intact, Normal Color, No Rash Lymphatic: No Adenopathy Course - Vital Signs Last Recorded V/S: Last Vital Signs Temp 101.4 F H 08/01/19 12:54 Pulse 104 H 08/01/19 13:22 Resp 32 H 08/01/19 12:54 BP 102/75 08/01/19 12:54 Pulse Ox 90 L 08/01/19 13:22 - Orders/Labs/Meds Orders: Active Orders 24 hr Category Date Time Status Admission Diagnosis [ADT] Stat ADT 08/01/19 14:15 Ordered Patient Status [ADT] Routine ADT 08/01/19 14:15 Active RT Aerosol Therapy [RC] ASDIRECTED Care 08/01/19 13:22 Active CORONAVIRUS COVID-19 PCR PHL Stat Lab 08/01/19 14:21 Received CULTURE BLOOD [BC] Stat Lab 08/01/19 13:15 Results CULTURE BLOOD [BC] Stat Lab 08/01/19 13:23 Results REFLEX LACTIC ACID YES OR NO [CHEM] Routine Lab 08/01/19 13:54 Received Sodium Chloride 0.9% [Normal Saline] 1,000 ml Med 08/01/19 14:50 Active IV .BOLUS Sodium Chloride 0.9% [Normal Saline] 1,000 ml Med 08/01/19 14:00 Active IV ASDIRECTED Blood Culture x2 Reflex Set [OM.PC] Stat Oth 08/01/19 13:00 Ordered Medication Orders Sodium Chloride (Normal Saline) 1,000 mls @ 999 mls/hr IV ASDIRECTED DOE Last Infusion: 08/01/19 14:50 Dose: 999 mls/hr Admin: 08/01/19 13:30 Dose: 999 mls/hr Sodium Chloride (Normal Saline) 1,000 mls @ 999 mls/hr IV .BOLUS ONE Stop: 08/01/19 15:50 Last Admin: 08/01/19 15:00 Dose: 250 mls/hr Labs: Laboratory Tests 08/01/19 08/01/19 08/01/19 Range/Units 13:23 13:23 13:23 WBC 14.0 H (5.0-10.0) 10^3/uL RBC 4.46 L (4.6-6.2) 10^6/uL Hgb 13.6 L D (14.0-18.0) g/dL Hct 40.6 (40.0-54.0) % MCV 91.0 (80-100) fL MCH 30.5 (27.0-34.0) pg MCHC 33.5 (33.0-35.0) g/dL Plt Count 381 D (150-450) 10^3/uL Neut % (Auto) 89.9 H (42.2-75.2) % Lymph % (Auto) 4.2 L (20.5-50.1) % [place] % (Auto) 5.4 (2-8) % Eos % (Auto) 0.3 L (1.0-3.0) % Baso % (Auto) 0.2 (0.0-1.0) % ABG pH (7.35-7.45) ABG pCO2 (35-45) mmHg ABG pO2 (70-100) mmHg ABG HCO3 (22-26) mmol/L ABG O2 Saturation (95-100) % ABG Base Excess ((-2)-(+3)) mmol/L Jamel Test O2 Delivery Device Sodium 137 (136-145) mmol/L Potassium 4.5 (3.5-5.1) mmol/L Chloride 99 (98-107) mmol/L Carbon Dioxide 30 (21-32) mmol/L Anion Gap 12.5 (7-13) mEq/L BUN 17 (7-18) mg/dL Creatinine 0.75 (0.70-1.30) mg/dL Est Cr Clr Drug Dosing TNP Estimated GFR (MDRD) > 60 BUN/Creatinine Ratio 22.7 (No establ ref range) Glucose 116 H (74-99) mg/dL Lactic Acid 2.6 H* (0.4-2.0) mmol/L Calcium 8.6 (8.5-10.1) mg/dL Total Bilirubin 0.4 (0.2-1.0) mg/dL AST 16 (15-37) U/L ALT 39 (16-63) U/L Alkaline Phosphatase 74 (46-116) U/L B-Natriuretic Peptide 16 (0-100) pg/ml Total Protein 7.1 (6.4-8.2) g/dL Albumin 3.2 L (3.4-5.0) g/dL Globulin 3.9 Albumin/Globulin Ratio 0.82 04/22/20 Range/Units 14:30 WBC (5.0-10.0) 10^3/uL RBC (4.6-6.2) 10^6/uL Hgb (14.0-18.0) g/dL Hct (40.0-54.0) % MCV (80-100) fL MCH (27.0-34.0) pg MCHC (33.0-35.0) g/dL Plt Count (150-450) 10^3/uL Neut % (Auto) (42.2-75.2) % Lymph % (Auto) (20.5-50.1) % [place] % (Auto) (2-8) % Eos % (Auto) (1.0-3.0) % Baso % (Auto) (0.0-1.0) % ABG pH 7.42 (7.35-7.45) ABG pCO2 38 (35-45) mmHg ABG pO2 57 L (70-100) mmHg ABG HCO3 24.2 (22-26) mmol/L ABG O2 Saturation 91 L (95-100) % ABG Base Excess 0 ((-2)-(+3)) mmol/L Jamel Test Performed O2 Delivery Device Om Sodium (136-145) mmol/L Potassium (3.5-5.1) mmol/L Chloride (98-107) mmol/L Carbon Dioxide (21-32) mmol/L Anion Gap (7-13) mEq/L BUN (7-18) mg/dL Creatinine (0.70-1.30) mg/dL Est Cr Clr Drug Dosing Estimated GFR (MDRD) BUN/Creatinine Ratio (No establ ref range) Glucose (74-99) mg/dL Lactic Acid (0.4-2.0) mmol/L Calcium (8.5-10.1) mg/dL Total Bilirubin (0.2-1.0) mg/dL AST (15-37) U/L ALT (16-63) U/L Alkaline Phosphatase (46-116) U/L B-Natriuretic Peptide (0-100) pg/ml Total Protein (6.4-8.2) g/dL Albumin (3.4-5.0) g/dL Globulin Albumin/Globulin Ratio Meds: Medications Generic Name Dose Route Start Last Admin Trade Name Freq PRN Reason Stop Dose Admin Sodium Chloride 1,000 mls @ 999 mls/hr 08/01/19 14:00 08/01/19 14:50 Normal Saline IV Infused ASDIRECTED DOE Infusion Sodium Chloride 1,000 mls @ 999 mls/hr 08/01/19 14:50 08/01/19 15:00 Normal Saline IV 08/01/19 15:50 250 mls/hr .BOLUS ONE Administration Discontinued Medications Generic Name Dose Route Start Last Admin Trade Name Freq PRN Reason Stop Dose Admin Acetaminophen 650 mg 08/01/19 14:49 Tylenol RECTAL 08/01/19 14:50 NOW STA Albuterol/Ipratropium 3 ml 08/01/19 13:22 08/01/19 13:39 Duoneb 3.0-0.5 Mg/3 Ml NEB 08/01/19 13:23 3 ml ONETIME ONE Administration Piperacillin Sod/Tazobactam 100 mls @ 200 mls/hr 08/01/19 14:13 08/01/19 14: 35 Sod 3.375 gm/ Sodium Chloride IV 08/01/19 14:42 200 mls/hr ONETIME ONE Administration Metoclopramide HCl 10 mg 08/01/19 13:00 08/01/19 13:30 Reglan IVPUSH 08/01/19 13:01 10 mg ONETIME ONE Administration - Radiology Interpretation Free Text/Narrative:: Chest xray: No acute new cardiopulmonary abnormality identified in the interval since 17 July 2019 and 20 February 2017 films 1. Generally poor inspiratory effort and some patient rotation artifact. Feeding gastrostomy tube LUQ. External monitor leads. 2. Normal cardiac silhouette without pulmonary vascular congestion cephalization or flow alveolar edema or dependent effusion. 3. No new lung mass, hilar lymphadenopathy, or focal lobar pneumonia. 4. No atelectasis/collapse. 5. No pneumothorax or pneumomediastinum. Midline tracheal airway unremarkable. See rad report - Re-Assessments/Exams Free Text/Narrative Re-Assessment/Exam: 08/01/19 14:20 Discussed patient case with Dr. Ballesteros who agreed to admit the patient for inpatient admission. Departure - Departure Time of Disposition: 15:09 Disposition: Admitted As Inpatient 66 Condition: Serious Clinical Impression: Developmental disability, Person under investigation for COVID-19 Aspiration pneumonia Qualifiers: Aspiration pneumonia type: unspecified Laterality: unspecified laterality Lung location: unspecified part of lung Qualified Code(s): J69.0 - Pneumonitis due to inhalation of food and vomit Sepsis Qualifiers: Sepsis type: sepsis due to unspecified organism Sepsis acute organ dysfunction status: unspecified Qualified Code(s): A41.9 - Sepsis, unspecified organism - Discharge Information *PRESCRIPTION DRUG MONITORING PROGRAM REVIEWED*: No *COPY OF PRESCRIPTION DRUG MONITORING REPORT IN PATIENT MARIBELL: No Sepsis Event Note - Focused Exam Vital Signs: Vital Signs Temp Pulse Resp BP Pulse Ox Pulse Ox 08/01/19 13:22 104 H 90 L 08/01/19 12:54 101.4 F H 107 H 32 H 102/75 92 L Date Exam was Performed: 08/01/19 Time Exam was Performed: 15:00 - My Orders Last 24 Hours: My Active Orders 08/01/19 13:00 Blood Culture x2 Reflex Set [OM.PC] Stat 08/01/19 13:15 CULTURE BLOOD [BC] Stat 08/01/19 13:22 RT Aerosol Therapy [RC] ASDIRECTED 08/01/19 13:23 CULTURE BLOOD [BC] Stat 08/01/19 13:54 REFLEX LACTIC ACID YES OR NO [CHEM] Routine 08/01/19 14:00 Sodium Chloride 0.9% [Normal Saline] 1,000 ml IV ASDIRECTED 08/01/19 14:15 Admission Diagnosis [ADT] Stat Patient Status [ADT] Routine 08/01/19 14:21 CORONAVIRUS COVID-19 PCR PHL Stat 08/01/19 14:50 Sodium Chloride 0.9% [Normal Saline] 1,000 ml IV .BOLUS - Assessment/Plan Last 24 Hours: My Active Orders 08/01/19 13:00 Blood Culture x2 Reflex Set [OM.PC] Stat 08/01/19 13:15 CULTURE BLOOD [BC] Stat 08/01/19 13:22 RT Aerosol Therapy [RC] ASDIRECTED 08/01/19 13:23 CULTURE BLOOD [BC] Stat 08/01/19 13:54 REFLEX LACTIC ACID YES OR NO [CHEM] Routine 08/01/19 14:00 Sodium Chloride 0.9% [Normal Saline] 1,000 ml IV ASDIRECTED 08/01/19 14:15 Admission Diagnosis [ADT] Stat Patient Status [ADT] Routine 08/01/19 14:21 CORONAVIRUS COVID-19 PCR PHL Stat 08/01/19 14:50 Sodium Chloride 0.9% [Normal Saline] 1,000 ml IV .BOLUS
[2019-08-01] MEDS ORDERED: Albuterol/Ipratropium 3.0-0.5 MG/3 ML Neb Soln NEB ONE (13:22)
--- NOTE | 2019-08-01 13:44 | CR ---
EXAMINATION: Chest 1V Frontal SEX: Male AGE: 58 years CLINICAL HISTORY: 58-year-old male complaining of chest pain. INTERPRETATION: *No acute new cardiopulmonary abnormality identified in the interval since 17 July 2019 &20 February 2017 films. 1. Generally poor inspiratory effort and some patient rotation artifact. Feeding gastrostomy tube LUQ. External monitor leads. 2. Normal cardiac silhouette without pulmonary vascular congestion cephalization of flow alveolar edema or dependent effusion. 3. No new lung mass, hilar lymphadenopathy or focal lobar pneumonia. 4. No atelectasis/collapse. 5. No pneumothorax or pneumomediastinum. Midline tracheal airway unremarkable.
[2019-08-01 13:48] LABS: ANION GAP 12.5 mEq/L (7-13); CHLORIDE,CL 99 mmol/L (98-107); SODIUM,NA 137 mmol/L (136-145)
[2019-08-01] MEDS ORDERED: Sodium Chloride 0.9% 1,000 ML IV SCH (14:00)
[2019-08-01] MEDS ORDERED: Piperacillin/Tazobactam 3.375 GM in Sodium Chloride 0.9% 100 ML IV ONE (14:13)
[2019-08-01 14:41] LABS: BASE EXCESS ARTERIAL 0 mmol/L ((-2)-(+3)); BICARBONATE,ARTERIAL 24.2 mmol/L (22-26); O2 DELIVERY DEVICE OM; O2 SATURATION ARTERIAL 91 % (95-100); PCO2 ARTERIAL 38 mmHg (35-45); PO2 ARTERIAL 57 mmHg (70-100)
[2019-08-01 14:45] LABS: ALLEN TEST PERFORMED
[2019-08-01] MEDS ORDERED: Acetaminophen 650 MG Supp RECTAL STA (14:49)
[2019-08-01] MEDS ORDERED: Sodium Chloride 0.9% 1,000 ML IV ONE (14:50)
[2019-08-01] MEDS ORDERED: Sodium Chloride 0.9% 10 ML Syringe FLUSH PRN (16:16)
[2019-08-01] MEDS: Sodium Chloride 0.9% 1,000 ML IV SCH (16:53)
[2019-08-01] MEDS ORDERED: Iopamidol 755 Mg/ML 100 ML Bottle IVPUSH ONE (17:22)
--- NOTE | 2019-08-01 17:29 | PCM.HP ---
H&P History of Present Illness - General Date of Service: 08/01/19 Admit Problem/Dx: Admission Diagnosis/Problem Admission Diagnosis/Problem Aspiration pneumonia Source of Information: Patient History Limitations: Reports: Altered Mental Status - History of Present Illness Initial Comments - Free Text/Narative: 58 yo M with PMH of hypertension, sleep apnea, seizure disorder, anxiety disorder, hypothyroidism, bipolar disorder, behavioral disorder, intellectual disability. Had long stay in [facility] for nearly a year and a half before being transferred to a [facility] home in [place] [facility] three weeks ago.Was admitted at the [facility] because of decreased level of consciousness ,associated recurrent aspiration leading to acute hypoxemic respiratory failure and then transferred to [facility] two weeks ago. At [facility], was seen by Psych and Neurology and unclear reason for decreased consciousness, started on bromocriptine for possible NMS and his psych meds were all held. Had a feeding tube placed and discharged back to the [facility] home yesterday. Unable to obtain hx from the patient due to AMS Was brought to the ER on account of SOB. Was found to be febrile and hypoxic in the ED. Started on IV abx. I called the patient's POA/guardian, his sister and explained the patient's current state to her. Discussed code status and she wants him to be DNR/DNI. Onset of Symptoms: Reports: Today, Unknown/Unsure Associated Symptoms: Reports: Cough, Shortness of Breath - Related Data Allergies/Adverse Reactions: Allergies Allergy/AdvReac Type Severity Reaction Status Date / Time cefprozil [From Cefzil] Allergy Cannot Verified 08/01/19 13:39 Remember Cephalosporins Allergy Cannot Verified 08/01/19 13:39 Remember haloperidol [From Haldol] Allergy Cannot Verified 08/01/19 13:39 Remember haloperidol lactate Allergy Cannot Verified 08/01/19 13:39 [From Haldol] Remember Home Medications: Home Meds Levothyroxine [Synthroid] 100 mcg GTUBE DAILY 11/06/13 [History] atorvaSTATin [Lipitor] 10 mg GTUBE BEDTIME 07/17/19 [History] metFORMIN [Glucophage] 500 mg GTUBE BIDMEALS 07/17/19 [History] Bromocriptine Mesylate [Parlodel] 5 tab GTUBE DAILY 08/01/19 [History] Nutritional Supplement [Osmolite 1.2 Tony] 70 ml GTUBE Q12HR 08/01/19 [History] Rivaroxaban [Xarelto] 20 mg PO DAILY 08/01/19 [History] levETIRAcetam [Keppra] 5 ml GTUBE BID 08/01/19 [History] Past Medical History HEENT History: Reports: Impaired Vision, Other (See Below) Other HEENT History: presbyopia Cardiovascular History: Reports: High Cholesterol, Hypertension Respiratory History: Reports: PE, Sleep Apnea Gastrointestinal History: Reports: Chronic Constipation, Other (See Below) Other Gastrointestinal History: gastritis Genitourinary History: Reports: Urinary Incontinence Neurological History: Reports: Seizure, Other (See Below) Psychiatric History: Reports: Anxiety, Other (See Below) Other Psychiatric History: disruptive behavior disorder Endocrine/Metabolic History: Reports: Hypothyroidism, Obesity/BMI 30+ Hematologic History: Reports: None Immunologic History: Reports: None Oncologic (Cancer) History: Reports: None Dermatologic History: Reports: Eczema - Infectious Disease History Infectious Disease History: Reports: None - Past Surgical History Head Surgeries/Procedures: Reports: None Musculoskeletal Surgical History: Reports: Hip Replacement Social & Family History - Family History Family Medical History: Unobtainable - Tobacco Use Smoking Status *Q: Unknown Ever Smoked Tobacco Use Comment: Unknown due to status of patient - Caffeine Use Caffeine Use: Reports: Coffee Other Caffeine Use: Unknown due to status of patient - Living Situation & Occupation Living situation: Reports: Single, Extended Care Facility Occupation: Disabled H&P Review of Systems - Review of Systems: Review Of Systems: Unable To Obtain (AMS) Reason Not Obtained: AMS Exam - Exam Exam: See Below - Vital Signs Vital Signs: Last Vital Signs Temp 37.9 C 08/01/19 16:16 Pulse 108 H 08/01/19 16:16 Resp 20 08/01/19 16:16 BP 97/59 L 08/01/19 16:16 Pulse Ox 86 L 08/01/19 16:16 Weight: 79.515 kg - Exam General: Lethargic, Obtunded HEENT: Other (excessive secretions) Neck: Supple, Trachea Midline Lungs: Crackles (bilateral) Cardiovascular: Regular Rate, Regular Rhythm, Tachycardia GI/Abdominal Exam: Soft, Non-Tender Extremities: Normal Inspection, Normal Range of Motion, Non-Tender, No Pedal Edema Neurological: Other (unable to assess) Psychiatric: Other (unable to assess) - Patient Data Lab Results Last 24 hrs: Laboratory Results - last 24 hr 08/01/19 08/01/19 08/01/19 Range/Units 13:23 13:23 13:23 WBC 14.0 H (5.0-10.0) 10^3/uL RBC 4.46 L (4.6-6.2) 10^6/uL Hgb 13.6 L D (14.0-18.0) g/dL Hct 40.6 (40.0-54.0) % MCV 91.0 (80-100) fL MCH 30.5 (27.0-34.0) pg MCHC 33.5 (33.0-35.0) g/dL Plt Count 381 D (150-450) 10^3/uL Neut % (Auto) 89.9 H (42.2-75.2) % Lymph % (Auto) 4.2 L (20.5-50.1) % Cochran % (Auto) 5.4 (2-8) % Eos % (Auto) 0.3 L (1.0-3.0) % Baso % (Auto) 0.2 (0.0-1.0) % ABG pH (7.35-7.45) ABG pCO2 (35-45) mmHg ABG pO2 (70-100) mmHg ABG HCO3 (22-26) mmol/L ABG O2 Saturation (95-100) % ABG Base Excess ((-2)-(+3)) mmol/L Jamel Test O2 Delivery Device Sodium 137 (136-145) mmol/L Potassium 4.5 (3.5-5.1) mmol/L Chloride 99 (98-107) mmol/L Carbon Dioxide 30 (21-32) mmol/L Anion Gap 12.5 (7-13) mEq/L BUN 17 (7-18) mg/dL Creatinine 0.75 (0.70-1.30) mg/dL Est Cr Clr Drug Dosing TNP Estimated GFR (MDRD) > 60 BUN/Creatinine Ratio 22.7 (No establ ref range) Glucose 116 H (74-99) mg/dL Lactic Acid 2.6 H* (0.4-2.0) mmol/L Calcium 8.6 (8.5-10.1) mg/dL Total Bilirubin 0.4 (0.2-1.0) mg/dL AST 16 (15-37) U/L ALT 39 (16-63) U/L Alkaline Phosphatase 74 (46-116) U/L B-Natriuretic Peptide 16 (0-100) pg/ml Total Protein 7.1 (6.4-8.2) g/dL Albumin 3.2 L (3.4-5.0) g/dL Globulin 3.9 Albumin/Globulin Ratio 0.82 04/22/20 Range/Units 14:30 WBC (5.0-10.0) 10^3/uL RBC (4.6-6.2) 10^6/uL Hgb (14.0-18.0) g/dL Hct (40.0-54.0) % MCV (80-100) fL MCH (27.0-34.0) pg MCHC (33.0-35.0) g/dL Plt Count (150-450) 10^3/uL Neut % (Auto) (42.2-75.2) % Lymph % (Auto) (20.5-50.1) % Cochran % (Auto) (2-8) % Eos % (Auto) (1.0-3.0) % Baso % (Auto) (0.0-1.0) % ABG pH 7.42 (7.35-7.45) ABG pCO2 38 (35-45) mmHg ABG pO2 57 L (70-100) mmHg ABG HCO3 24.2 (22-26) mmol/L ABG O2 Saturation 91 L (95-100) % ABG Base Excess 0 ((-2)-(+3)) mmol/L Jamel Test Performed O2 Delivery Device Om Sodium (136-145) mmol/L Potassium (3.5-5.1) mmol/L Chloride (98-107) mmol/L Carbon Dioxide (21-32) mmol/L Anion Gap (7-13) mEq/L BUN (7-18) mg/dL Creatinine (0.70-1.30) mg/dL Est Cr Clr Drug Dosing Estimated GFR (MDRD) BUN/Creatinine Ratio (No establ ref range) Glucose (74-99) mg/dL Lactic Acid (0.4-2.0) mmol/L Calcium (8.5-10.1) mg/dL Total Bilirubin (0.2-1.0) mg/dL AST (15-37) U/L ALT (16-63) U/L Alkaline Phosphatase (46-116) U/L B-Natriuretic Peptide (0-100) pg/ml Total Protein (6.4-8.2) g/dL Albumin (3.4-5.0) g/dL Globulin Albumin/Globulin Ratio Result Diagrams: 08/01/19 13:23 08/01/19 13:23 Simeon Results Last 24 hrs: Microbiology 08/01/19 13:23 Anaerobic Blood Culture - Final Blood - Venous - Lab Draw 08/01/19 13:15 Anaerobic Blood Culture - Final Blood - Venous Imaging Impressions Last 24 hrs: CXR: no infiltrates or effusions Problem List Initiated/Reviewed/Updated: Yes Orders Last 24hrs: Active Orders 24 hr Category Date Time Status Admission Diagnosis [ADT] Stat ADT 08/01/19 14:15 Ordered Patient Status [ADT] Routine ADT 08/01/19 16:16 Active Accu Check [Blood Glucose Check, Bedside] [RC] Q6H Care 08/01/19 16:56 Ordered Ambulate [RC] ASDIRECTED Care 08/01/19 16:16 Active Aspiration Precautions [RC] ASDIRECTED Care 08/01/19 16:58 Ordered Height and Weight [RC] DAILY Care 08/01/19 16:16 Active Oxygen Therapy [RC] .PRN Care 08/01/19 16:16 Active Peripheral IV Care [RC] , Care 08/01/19 16:16 Active RT Aerosol Therapy [RC] ASDIRECTED Care 08/01/19 13:22 Active Up With Assistance [RC] ASDIRECTED Care 08/01/19 16:16 Active VTE/DVT Education [RC] PER UNIT ROUTINE Care 08/01/19 16:16 Active Vital Signs [RC] Q4H Care 08/01/19 16:16 Active Nothing per Oral Now Diet [DIET] Diet 08/01/19 Dinner Active CTA Chest W WO Contrast [Ang Chest] [CT] Routine Exams 08/01/19 17:15 Ordered BASIC METABOLIC PANEL,BMP [CHEM] AM Lab 08/02/19 05:11 Ordered BASIC METABOLIC PANEL,BMP [CHEM] AM Lab 08/03/19 05:11 Ordered BASIC METABOLIC PANEL,BMP [CHEM] AM Lab 08/04/19 05:11 Ordered CBC W/O DIFF,HEMOGRAM [HEME] AM Lab 08/02/19 05:11 Ordered CBC W/O DIFF,HEMOGRAM [HEME] AM Lab 08/03/19 05:11 Ordered CBC W/O DIFF,HEMOGRAM [HEME] AM Lab 08/04/19 05:11 Ordered CORONAVIRUS COVID-19 PCR PHL Stat Lab 08/01/19 14:21 Received CULTURE BLOOD [BC] Stat Lab 08/01/19 13:15 Results CULTURE BLOOD [BC] Stat Lab 08/01/19 13:23 Results LACTIC ACID [CHEM] Routine Lab 08/01/19 16:54 Ordered MAGNESIUM [CHEM] AM Lab 08/02/19 05:11 Ordered MAGNESIUM [CHEM] AM Lab 08/03/19 05:11 Ordered MAGNESIUM [CHEM] AM Lab 08/04/19 05:11 Ordered PHOSPHORUS [CHEM] AM Lab 08/02/19 05:11 Ordered PHOSPHORUS [CHEM] AM Lab 08/03/19 05:11 Ordered PHOSPHORUS [CHEM] AM Lab 08/04/19 05:11 Ordered Acetaminophen [Tylenol] Med 08/01/19 17:00 Ordered 650 mg GTUBE Q4H PRN Bromocriptine Mesylate [Parlodel] Med 08/02/19 09:00 Pending 5 tab GTUBE DAILY Insulin Lispro [HumaLOG] Med 08/01/19 17:00 Ordered See Protocol SUBCUT Q6H Iopamidol [Isovue-370 (76%)] Med 08/01/19 17:22 Once 100 ml IVPUSH ONETIME ONE Levothyroxine [Synthroid] Med 08/02/19 09:00 Active 100 mcg GTUBE DAILY Nutritional Supplement [Osmolite 1.2 Tony] Med 08/01/19 21:00 Pending 70 ml GTUBE Q12HR Piperacillin/Tazobactam [Zosyn] 3.375 gm Med 08/01/19 22:00 Active Sodium Chloride 0.9% [Normal Saline] 100 ml IV Q6H Rivaroxaban [Xarelto] Med 08/02/19 18:00 Active 20 mg PO WITHDINNER Sodium Chloride 0.9% [Normal Saline] 1,000 ml Med 08/01/19 14:00 Active IV ASDIRECTED Sodium Chloride 0.9% [Normal Saline] 1,000 ml Med 08/01/19 16:30 Active IV ASDIRECTED Sodium Chloride 0.9% [Saline Flush] Med 08/01/19 16:16 Active 10 ml FLUSH ASDIRECTED PRN Sodium Chloride 0.9% [Saline Flush] Med 08/01/19 16:16 Active 10 ml FLUSH ASDIRECTED PRN atorvaSTATin [Lipitor] Med 08/01/19 21:00 Active 10 mg GTUBE BEDTIME levETIRAcetam [Keppra] Med 08/01/19 21:00 Pending 5 ml GTUBE BID metFORMIN [Glucophage] Med 08/01/19 18:00 Active 500 mg GTUBE BIDMEALS Blood Culture x2 Reflex Set [OM.PC] Stat Oth 08/01/19 13:00 Ordered Peripheral IV Insertion Adult [OM.PC] Routine Oth 08/01/19 16:16 Ordered Saline Lock Insert [OM.PC] Routine Oth 08/01/19 16:16 Ordered Code Status [Resuscitation Status] Stat Resus Stat 08/01/19 16:25 Ordered Medication Orders Acetaminophen (Tylenol) 650 mg GTUBE Q4H PRN PRN Reason: Pain/Fever Atorvastatin Calcium (Lipitor) 10 mg GTUBE BEDTIME DOE Sodium Chloride (Normal Saline) 1,000 mls @ 999 mls/hr IV ASDIRECTED DOE Last Infusion: 08/01/19 14:50 Dose: 999 mls/hr Admin: 08/01/19 13:30 Dose: 999 mls/hr Piperacillin Sod/Tazobactam (Sod 3.375 gm/ Sodium Chloride) 100 mls @ 200 mls/ hr IV Q6H DOE Sodium Chloride (Normal Saline) 1,000 mls @ 75 mls/hr IV ASDIRECTED DOE Last Admin: 08/01/19 16:53 Dose: 75 mls/hr Insulin Human Lispro (Humalog) 0 unit SUBCUT Q6H DOE; Protocol Iopamidol (Isovue-370 (76%)) 100 ml IVPUSH ONETIME ONE Stop: 08/01/19 17:23 Levothyroxine Sodium (Synthroid) 100 mcg GTUBE DAILY DOE Metformin HCl (Glucophage) 500 mg GTUBE BIDMEALS DOE Non-Formulary Medication (Nutritional Supplement [Osmolite 1.2 Tony]) 70 ml GTUBE Q12HR DOE Non-Formulary Medication (Levetiracetam [Keppra]) 5 ml GTUBE BID DOE Non-Formulary Medication (Bromocriptine Mesylate [Parlodel]) 5 tab GTUBE DAILY DOE Rivaroxaban (Xarelto) 20 mg PO WITHDINNER DOE Sodium Chloride (Saline Flush) 10 ml FLUSH ASDIRECTED PRN PRN Reason: Keep Vein Open Sodium Chloride (Saline Flush) 10 ml FLUSH ASDIRECTED PRN PRN Reason: Keep Vein Open Assessment/Plan Comment:: #Aspiration pneumonia #Acute hypoxic respiratory failure #Sepsis POA: tachycardia, fever -NPO, hold tube feeds -IVF -IV abx: IV Zosyn -monitor vital signs -Daily CBC -oxygen support to keep sats > 92% -unlikely PE as patient is fully anticoagulated on xarelto. But will check CTPE #Hx of seizure medications -continue Keppra #Hx of hypothyroidism -continue levothyroxine #Hx of HLD -continue atorvastatin #Hx of PE -on xarelto #DVT ppx -on xarelto #Code status #Goals of care Discussed with the patient's POA/guardian, sister Adia Archer @ [phone]. Prognosis is guarded. She made him DNR/DNI. Will consider palliative care. Continue medical care for now. More than 70 minutes was spent on the patient's care. Over 50% of the visit was spent in counseling on the patient's diagnosis/medications/therapies and coordination of care/discharge planning.
[2019-08-01] MEDS: Insulin Lispro 100 Units/ML 3 ML Vial SUBCUT SCH ×2 (17:42→23:13)
[2019-08-01] MEDS: metFORMIN 500 MG Tab GTUBE SCH (18:12)
[2019-08-01] MEDS: LEVETIRACETAM 100 MG/ML GTUBE SCH (21:05)
[2019-08-01] MEDS: atorvaSTATin 10 MG Tab GTUBE SCH (21:05)
[2019-08-01] MEDS: Piperacillin/Tazobactam 3.375 GM in Sodium Chloride 0.9% 100 ML IV SCH (21:07)
[2019-08-01] MEDS: NUTRITIONAL SUPPLEMENT GTUBE SCH (21:13)
[2019-08-02] MEDS: Acetaminophen 325 MG Tab GTUBE PRN ×4 (02:19→18:04)
[2019-08-02] MEDS: Piperacillin/Tazobactam 3.375 GM in Sodium Chloride 0.9% 100 ML IV SCH ×3 (04:27→18:04)
[2019-08-02] MEDS: Insulin Lispro 100 Units/ML 3 ML Vial SUBCUT SCH ×4 (04:36→23:15)
[2019-08-02] MEDS: Sodium Chloride 0.9% 1,000 ML IV SCH ×2 (08:15→21:44)
[2019-08-02] MEDS: Levothyroxine 100 MCG Tab GTUBE SCH (08:22)
[2019-08-02] MEDS: LEVETIRACETAM 100 MG/ML GTUBE SCH ×2 (08:23→22:24)
[2019-08-02 09:08] LABS: ANION GAP 13.8 mEq/L (7-13); CHLORIDE,CL 102 mmol/L (98-107); SODIUM,NA 138 mmol/L (136-145)
[2019-08-02] MEDS: NUTRITIONAL SUPPLEMENT GTUBE SCH (10:42)
[2019-08-02] MEDS: metFORMIN 500 MG Tab GTUBE SCH (10:43)
--- NOTE | 2019-08-02 13:08 | PCM.PN ---
- General Info Date of Service: 08/02/19 Admission Dx/Problem (Free Text): Admission Diagnosis/Problem Admission Diagnosis/Problem Aspiration pneumonia Subjective Update: Pt seen and examined at bedside Still non-verbal, hypoxic unable to obtain ROS - Review of Systems Systems Review Comment:: unable to obtain ROS - Patient Data Vitals - Most Recent: Last Vital Signs Temp 37.2 C 08/02/19 11:48 Pulse 103 H 08/02/19 11:48 Resp 40 H 08/02/19 11:48 BP 102/67 08/02/19 11:48 Pulse Ox 94 L 08/02/19 11:48 Weight - Most Recent: 72.665 kg I&O - Last 24 Hours: Intake & Output 08/01/19 08/02/19 08/02/19 22:59 06:59 14:59 Intake Total 100 2350 Balance 100 2350 Lab Results Last 24 Hours: Laboratory Results - last 24 hr 08/01/19 08/01/19 08/01/19 Range/Units 13:23 13:23 13:23 WBC 14.0 H (5.0-10.0) 10^3/uL RBC 4.46 L (4.6-6.2) 10^6/uL Hgb 13.6 L D (14.0-18.0) g/dL Hct 40.6 (40.0-54.0) % MCV 91.0 (80-100) fL MCH 30.5 (27.0-34.0) pg MCHC 33.5 (33.0-35.0) g/dL Plt Count 381 D (150-450) 10^3/uL Neut % (Auto) 89.9 H (42.2-75.2) % Lymph % (Auto) 4.2 L (20.5-50.1) % Antelope % (Auto) 5.4 (2-8) % Eos % (Auto) 0.3 L (1.0-3.0) % Baso % (Auto) 0.2 (0.0-1.0) % ABG pH (7.35-7.45) ABG pCO2 (35-45) mmHg ABG pO2 (70-100) mmHg ABG HCO3 (22-26) mmol/L ABG O2 Saturation (95-100) % ABG Base Excess ((-2)-(+3)) mmol/L Jamel Test O2 Delivery Device Sodium 137 (136-145) mmol/L Potassium 4.5 (3.5-5.1) mmol/L Chloride 99 (98-107) mmol/L Carbon Dioxide 30 (21-32) mmol/L Anion Gap 12.5 (7-13) mEq/L BUN 17 (7-18) mg/dL Creatinine 0.75 (0.70-1.30) mg/dL Est Cr Clr Drug Dosing TNP Estimated GFR (MDRD) > 60 BUN/Creatinine Ratio 22.7 (No establ ref range) Glucose 116 H (74-99) mg/dL POC Glucose (70-105) mg/dl Lactic Acid 2.6 H* (0.4-2.0) mmol/L Calcium 8.6 (8.5-10.1) mg/dL Phosphorus (2.6-4.7) mg/dL Magnesium (1.8-2.4) mg/dL Total Bilirubin 0.4 (0.2-1.0) mg/dL AST 16 (15-37) U/L ALT 39 (16-63) U/L Alkaline Phosphatase 74 (46-116) U/L B-Natriuretic Peptide 16 (0-100) pg/ml Total Protein 7.1 (6.4-8.2) g/dL Albumin 3.2 L (3.4-5.0) g/dL Globulin 3.9 Albumin/Globulin Ratio 0.82 08/01/19 08/01/19 08/01/19 Range/Units 14:30 17:40 17:41 WBC (5.0-10.0) 10^3/uL RBC (4.6-6.2) 10^6/uL Hgb (14.0-18.0) g/dL Hct (40.0-54.0) % MCV (80-100) fL MCH (27.0-34.0) pg MCHC (33.0-35.0) g/dL Plt Count (150-450) 10^3/uL Neut % (Auto) (42.2-75.2) % Lymph % (Auto) (20.5-50.1) % Antelope % (Auto) (2-8) % Eos % (Auto) (1.0-3.0) % Baso % (Auto) (0.0-1.0) % ABG pH 7.42 (7.35-7.45) ABG pCO2 38 (35-45) mmHg ABG pO2 57 L (70-100) mmHg ABG HCO3 24.2 (22-26) mmol/L ABG O2 Saturation 91 L (95-100) % ABG Base Excess 0 ((-2)-(+3)) mmol/L Jamel Test Performed O2 Delivery Device Om Sodium (136-145) mmol/L Potassium (3.5-5.1) mmol/L Chloride (98-107) mmol/L Carbon Dioxide (21-32) mmol/L Anion Gap (7-13) mEq/L BUN (7-18) mg/dL Creatinine (0.70-1.30) mg/dL Est Cr Clr Drug Dosing Estimated GFR (MDRD) BUN/Creatinine Ratio (No establ ref range) Glucose (74-99) mg/dL POC Glucose 110 H (70-105) mg/dl Lactic Acid 1.9 (0.4-2.0) mmol/L Calcium (8.5-10.1) mg/dL Phosphorus (2.6-4.7) mg/dL Magnesium (1.8-2.4) mg/dL Total Bilirubin (0.2-1.0) mg/dL AST (15-37) U/L ALT (16-63) U/L Alkaline Phosphatase (46-116) U/L B-Natriuretic Peptide (0-100) pg/ml Total Protein (6.4-8.2) g/dL Albumin (3.4-5.0) g/dL Globulin Albumin/Globulin Ratio 08/01/19 08/02/19 08/02/19 Range/Units 21:01 04:22 07:33 WBC (5.0-10.0) 10^3/uL RBC (4.6-6.2) 10^6/uL Hgb (14.0-18.0) g/dL Hct (40.0-54.0) % MCV (80-100) fL MCH (27.0-34.0) pg MCHC (33.0-35.0) g/dL Plt Count (150-450) 10^3/uL Neut % (Auto) (42.2-75.2) % Lymph % (Auto) (20.5-50.1) % Antelope % (Auto) (2-8) % Eos % (Auto) (1.0-3.0) % Baso % (Auto) (0.0-1.0) % ABG pH (7.35-7.45) ABG pCO2 (35-45) mmHg ABG pO2 (70-100) mmHg ABG HCO3 (22-26) mmol/L ABG O2 Saturation (95-100) % ABG Base Excess ((-2)-(+3)) mmol/L Jamel Test O2 Delivery Device Sodium (136-145) mmol/L Potassium (3.5-5.1) mmol/L Chloride (98-107) mmol/L Carbon Dioxide (21-32) mmol/L Anion Gap (7-13) mEq/L BUN (7-18) mg/dL Creatinine (0.70-1.30) mg/dL Est Cr Clr Drug Dosing Estimated GFR (MDRD) BUN/Creatinine Ratio (No establ ref range) Glucose (74-99) mg/dL POC Glucose 114 H 157 H 132 H (70-105) mg/dl Lactic Acid (0.4-2.0) mmol/L Calcium (8.5-10.1) mg/dL Phosphorus (2.6-4.7) mg/dL Magnesium (1.8-2.4) mg/dL Total Bilirubin (0.2-1.0) mg/dL AST (15-37) U/L ALT (16-63) U/L Alkaline Phosphatase (46-116) U/L B-Natriuretic Peptide (0-100) pg/ml Total Protein (6.4-8.2) g/dL Albumin (3.4-5.0) g/dL Globulin Albumin/Globulin Ratio 08/02/19 08/02/19 08/02/19 Range/Units 08:40 08:40 12:24 WBC 12.4 H (5.0-10.0) 10^3/uL RBC 4.17 L (4.6-6.2) 10^6/uL Hgb 12.5 L (14.0-18.0) g/dL Hct 38.1 L (40.0-54.0) % MCV 91.4 (80-100) fL MCH 30.0 (27.0-34.0) pg MCHC 32.8 L (33.0-35.0) g/dL Plt Count 297 D (150-450) 10^3/uL Neut % (Auto) (42.2-75.2) % Lymph % (Auto) (20.5-50.1) % Antelope % (Auto) (2-8) % Eos % (Auto) (1.0-3.0) % Baso % (Auto) (0.0-1.0) % ABG pH (7.35-7.45) ABG pCO2 (35-45) mmHg ABG pO2 (70-100) mmHg ABG HCO3 (22-26) mmol/L ABG O2 Saturation (95-100) % ABG Base Excess ((-2)-(+3)) mmol/L Jamel Test O2 Delivery Device Sodium 138 (136-145) mmol/L Potassium 3.8 (3.5-5.1) mmol/L Chloride 102 (98-107) mmol/L Carbon Dioxide 26 (21-32) mmol/L Anion Gap 13.8 H (7-13) mEq/L BUN 17 (7-18) mg/dL Creatinine 0.79 (0.70-1.30) mg/dL Est Cr Clr Drug Dosing 104.76 Estimated GFR (MDRD) > 60 BUN/Creatinine Ratio (No establ ref range) Glucose 111 H (74-99) mg/dL POC Glucose 120 H (70-105) mg/dl Lactic Acid (0.4-2.0) mmol/L Calcium 8.0 L (8.5-10.1) mg/dL Phosphorus 2.9 (2.6-4.7) mg/dL Magnesium 1.7 L (1.8-2.4) mg/dL Total Bilirubin (0.2-1.0) mg/dL AST (15-37) U/L ALT (16-63) U/L Alkaline Phosphatase (46-116) U/L B-Natriuretic Peptide (0-100) pg/ml Total Protein (6.4-8.2) g/dL Albumin (3.4-5.0) g/dL Globulin Albumin/Globulin Ratio Simeon Results Last 24 Hours: Microbiology 08/01/19 13:23 Anaerobic Blood Culture - Final Blood - Venous - Lab Draw 08/01/19 13:15 Anaerobic Blood Culture - Final Blood - Venous Med Orders - Current: Current Medications Acetaminophen (Tylenol) 650 mg GTUBE Q4H PRN PRN Reason: Pain/Fever Last Admin: 08/02/19 12:25 Dose: 650 mg Atorvastatin Calcium (Lipitor) 10 mg GTUBE BEDTIME DOE Last Admin: 08/01/19 21:05 Dose: 10 mg Sodium Chloride (Normal Saline) 1,000 mls @ 75 mls/hr IV ASDIRECTED DOE Last Admin: 08/02/19 08:15 Dose: 75 mls/hr Piperacillin Sod/Tazobactam (Sod 3.375 gm/ Sodium Chloride) 100 mls @ 200 mls/ hr IV Q6HR [facility] Last Infusion: 08/02/19 12:21 Dose: Infused Insulin Human Lispro (Humalog) 0 unit SUBCUT Q6H [facility]; Protocol Last Admin: 08/02/19 12:25 Dose: Not Given Levothyroxine Sodium (Synthroid) 100 mcg GTUBE DAILY [facility] Last Admin: 08/02/19 08:22 Dose: 100 mcg Non-Formulary Nutritional Supplement [Osmolite 1.2 Tony] #Patient's Own# 70 ml GTUBE Q12HR [facility] Last Admin: 08/02/19 10:42 Dose: Not Given Levetiracetam [ Keppra] 100mg/Ml Oral Solution#Own Med# 5 ml GTUBE BID [facility] Last Admin: 08/02/19 08:23 Dose: 5 ml Non-Formulary Medication (Bromocriptine Mesylate [Parlodel]) 5 tab GTUBE DAILY [facility] Rivaroxaban (Xarelto) 20 mg PO WITHDINNER [facility] Sodium Chloride (Saline Flush) 10 ml FLUSH ASDIRECTED PRN PRN Reason: Keep Vein Open Discontinued Medications Acetaminophen (Tylenol) 650 mg RECTAL NOW STA Stop: 08/01/19 14:50 Last Admin: 08/01/19 15:00 Dose: 650 mg Albuterol/Ipratropium (Duoneb 3.0-0.5 Mg/3 Ml) 3 ml NEB ONETIME ONE Stop: 08/01/19 13:23 Last Admin: 08/01/19 13:39 Dose: 3 ml Sodium Chloride (Normal Saline) 1,000 mls @ 999 mls/hr IV ASDIRECTED [facility] Last Infusion: 08/01/19 14:50 Dose: Infused Piperacillin Sod/Tazobactam (Sod 3.375 gm/ Sodium Chloride) 100 mls @ 200 mls/ hr IV ONETIME ONE Stop: 08/01/19 14:42 Last Infusion: 08/01/19 15:52 Dose: Infused Sodium Chloride (Normal Saline) 1,000 mls @ 999 mls/hr IV .BOLUS ONE Stop: 08/01/19 15:50 Last Infusion: 08/01/19 15:52 Dose: 999 mls/hr Piperacillin Sod/Tazobactam (Sod 3.375 gm/ Sodium Chloride) 100 mls @ 200 mls/ hr IV Q6H [facility] Last Admin: 08/02/19 04:27 Dose: 200 mls/hr Iopamidol (Isovue-370 (76%)) 100 ml IVPUSH ONETIME ONE Stop: 08/01/19 17:23 Last Admin: 08/01/19 23:07 Dose: 75 ml Metformin HCl (Glucophage) 500 mg GTUBE BIDMEALS [facility] Last Admin: 08/02/19 10:43 Dose: Not Given Metoclopramide HCl (Reglan) 10 mg IVPUSH ONETIME ONE Stop: 08/01/19 13:01 Last Admin: 08/01/19 13:30 Dose: 10 mg Piperacillin Sod/Tazobactam Sod (Zosyn) Confirm Administered Dose 3.375 gm .ROUTE .STK-MED ONE Stop: 08/01/19 20:56 Last Admin: 08/01/19 21:19 Dose: Not Given - Exam Quality Assessment: Supplemental Oxygen General: Lethargic, Obtunded Neck: Supple Lungs: Crackles (bilateral crackles) Cardiovascular: Regular Rate, Regular Rhythm GI/Abdominal Exam: Normal Bowel Sounds, Soft, Non-Tender, No Organomegaly Extremities: Normal Inspection, Normal Range of Motion, Non-Tender, No Pedal Edema Neurological: Other (cannot assess) Psy/Mental Status: Other (cannot assess) Sepsis Event Note - Evaluation Sepsis Screening Result: Severe Sepsis Risk - Focused Exam Vital Signs: Vital Signs Temp Pulse Resp BP Pulse Ox 08/02/19 11:48 37.2 C 103 H 40 H 102/67 94 L 08/02/19 07:46 38.4 C H 114 H 42 H 106/64 94 L 08/02/19 04:24 38.2 C H 107 H 40 H 110/45 L 94 L 08/02/19 02:30 40.7 C H 120 H 24 H 105/54 L 90 L Date Exam was Performed: 08/02/19 Time Exam was Performed: 12:52 - Problem List Review Problem List Initiated/Reviewed/Updated: Yes - My Orders Last 24 Hours: My Active Orders 08/01/19 16:16 Patient Status [ADT] Routine Height and Weight [RC] 06 Oxygen Therapy [RC] .PRN Peripheral IV Care [RC] Up With Assistance [RC] ASDIRECTED VTE/DVT Education [RC] PER UNIT ROUTINE Vital Signs [RC] 00,04,08,12,16,20 Sodium Chloride 0.9% [Saline Flush] 10 ml FLUSH ASDIRECTED PRN Peripheral IV Insertion Adult [OM.PC] Routine Saline Lock Insert [OM.PC] Routine 08/01/19 16:25 Code Status [Resuscitation Status] Stat 08/01/19 16:30 Sodium Chloride 0.9% [Normal Saline] 1,000 ml IV ASDIRECTED 08/01/19 16:56 Accu Check [Blood Glucose Check, Bedside] [RC] 06,12,18,00 08/01/19 16:58 Aspiration Precautions [RC] ASDIRECTED 08/01/19 17:00 Acetaminophen [Tylenol] 650 mg GTUBE Q4H PRN Insulin Lispro [HumaLOG] See Protocol SUBCUT Q6H 08/01/19 17:15 Chest w Cont [CT] Routine 08/01/19 18:00 Gastrointestinal Tube Mgmt [RC] 06,12,18,00 08/01/19 21:00 Nutritional Supplement [Osmolite 1.2 Tony] 70 ml GTUBE Q12HR atorvaSTATin [Lipitor] 10 mg GTUBE BEDTIME levETIRAcetam [Keppra] 5 ml GTUBE BID 08/01/19 Dinner Nothing per Oral Now Diet [DIET] 08/02/19 09:00 Bromocriptine Mesylate [Parlodel] 5 tab GTUBE DAILY Levothyroxine [Synthroid] 100 mcg GTUBE DAILY 08/02/19 12:00 Piperacillin/Tazobactam [Zosyn] 3.375 gm Sodium Chloride 0.9% [Normal Saline] 100 ml IV Q6HR 08/02/19 18:00 Rivaroxaban [Xarelto] 20 mg PO WITHDINNER 08/03/19 05:11 BASIC METABOLIC PANEL,BMP [CHEM] AM CBC W/O DIFF,HEMOGRAM [HEME] AM MAGNESIUM [CHEM] AM PHOSPHORUS [CHEM] AM 08/04/19 05:11 BASIC METABOLIC PANEL,BMP [CHEM] AM CBC W/O DIFF,HEMOGRAM [HEME] AM MAGNESIUM [CHEM] AM PHOSPHORUS [CHEM] AM - Plan Plan:: #Aspiration pneumonia #Acute hypoxic respiratory failure #Sepsis POA: tachycardia, fever -NPO, hold tube feeds -IVF -IV abx: IV Zosyn -monitor vital signs -Daily CBC -oxygen support to keep sats > 92% -CTPE: 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 malignancy? causing left bronchial obstruction, post obstructive pneumonia. -not a candidate for biopsy at this time due to high oxygen requirements. Patient is on a NRB this morning. 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 -prognosis is poor/guarded -family considering palliative care More than 70 minutes was spent on the patient's care. Over 50% of the visit was spent in counseling on the patient's diagnosis/medications/therapies and coordination of care/discharge planning.
[2019-08-02] MEDS: Rivaroxaban 10 MG Tab PO SCH (18:04)
[2019-08-02] MEDS: atorvaSTATin 10 MG Tab GTUBE SCH (22:26)
[2019-08-02] MEDS ORDERED: Scopolamine 1.5 MG Transdermal Patch TRDERM PRN (22:30)
[2019-08-03] MEDS: Piperacillin/Tazobactam 3.375 GM in Sodium Chloride 0.9% 100 ML IV SCH ×5 (00:19→23:32)
[2019-08-03] MEDS: Acetaminophen 325 MG Tab GTUBE PRN ×3 (00:36→16:07)
[2019-08-03] MEDS: Insulin Lispro 100 Units/ML 3 ML Vial SUBCUT SCH ×4 (04:42→22:31)
[2019-08-03 09:23] LABS: ANION GAP 15.1 mEq/L (7-13); CHLORIDE,CL 106 mmol/L (98-107); SODIUM,NA 141 mmol/L (136-145)
[2019-08-03] MEDS: Levothyroxine 100 MCG Tab GTUBE SCH (10:26)
[2019-08-03] MEDS: LEVETIRACETAM 100 MG/ML GTUBE SCH ×2 (10:28→21:58)
--- NOTE | 2019-08-03 10:49 | PCM.PN ---
- General Info Date of Service: 08/03/19 Admission Dx/Problem (Free Text): Admission Diagnosis/Problem Admission Diagnosis/Problem Aspiration pneumonia Subjective Update: Pt seen and examined at bedside Still non-verbal, hypoxic unable to obtain ROS - Review of Systems Systems Review Comment:: unable to obtain ROS - Patient Data Vitals - Most Recent: Last Vital Signs Temp 38.2 C H 08/03/19 08:00 Pulse 89 08/03/19 08:00 Resp 48 H 08/03/19 08:00 BP 117/63 08/03/19 08:00 Pulse Ox 99 08/03/19 08:00 Weight - Most Recent: 71.622 kg I&O - Last 24 Hours: Intake & Output 08/02/19 08/03/19 08/03/19 22:59 06:59 14:59 Intake Total 100 1691 Balance 100 1691 Lab Results Last 24 Hours: Laboratory Results - last 24 hr 08/02/19 08/02/19 08/02/19 Range/Units 12:24 16:13 21:03 WBC (5.0-10.0) 10^3/uL RBC (4.6-6.2) 10^6/uL Hgb (14.0-18.0) g/dL Hct (40.0-54.0) % MCV (80-100) fL MCH (27.0-34.0) pg MCHC (33.0-35.0) g/dL Plt Count (150-450) 10^3/uL Sodium (136-145) mmol/L Potassium (3.5-5.1) mmol/L Chloride (98-107) mmol/L Carbon Dioxide (21-32) mmol/L Anion Gap (7-13) mEq/L BUN (7-18) mg/dL Creatinine (0.70-1.30) mg/dL Est Cr Clr Drug Dosing mL/min Estimated GFR (MDRD) Glucose (74-99) mg/dL POC Glucose 120 H 94 87 (70-105) mg/dl Calcium (8.5-10.1) mg/dL Phosphorus (2.6-4.7) mg/dL Magnesium (1.8-2.4) mg/dL 08/03/19 08/03/19 08/03/19 Range/Units 03:39 08:55 08:55 WBC 8.4 (5.0-10.0) 10^3/uL RBC 3.62 L (4.6-6.2) 10^6/uL Hgb 11.0 L D (14.0-18.0) g/dL Hct 33.6 L (40.0-54.0) % MCV 92.8 (80-100) fL MCH 30.4 (27.0-34.0) pg MCHC 32.7 L (33.0-35.0) g/dL Plt Count 246 (150-450) 10^3/uL Sodium 141 (136-145) mmol/L Potassium 4.1 (3.5-5.1) mmol/L Chloride 106 (98-107) mmol/L Carbon Dioxide 24 (21-32) mmol/L Anion Gap 15.1 H (7-13) mEq/L BUN 17 (7-18) mg/dL Creatinine 0.57 L (0.70-1.30) mg/dL Est Cr Clr Drug Dosing 143.10 mL/min Estimated GFR (MDRD) > 60 Glucose 89 (74-99) mg/dL POC Glucose 85 (70-105) mg/dl Calcium 8.0 L (8.5-10.1) mg/dL Phosphorus 2.5 L (2.6-4.7) mg/dL Magnesium 2.0 (1.8-2.4) mg/dL Simeon Results Last 24 Hours: Microbiology 08/01/19 13:15 Aerobic Blood Culture - Preliminary Blood - Venous NO GROWTH AFTER 1 DAY Anaerobic Blood Culture - Final 08/01/19 13:23 Aerobic Blood Culture - Preliminary Blood - Venous - Lab Draw NO GROWTH AFTER 1 DAY Anaerobic Blood Culture - Final Med Orders - Current: Current Medications Acetaminophen (Tylenol) 650 mg GTUBE Q4H PRN PRN Reason: Pain/Fever Last Admin: 08/03/19 07:55 Dose: 650 mg Atorvastatin Calcium (Lipitor) 10 mg GTUBE BEDTIME DOE Last Admin: 08/02/19 22:26 Dose: 10 mg Sodium Chloride (Normal Saline) 1,000 mls @ 75 mls/hr IV ASDIRECTED DOE Last Admin: 08/02/19 21:44 Dose: 75 mls/hr Piperacillin Sod/Tazobactam (Sod 3.375 gm/ Sodium Chloride) 100 mls @ 200 mls/ hr IV Q6HR [facility] Last Infusion: 08/03/19 06:15 Dose: Infused Insulin Human Lispro (Humalog) 0 unit SUBCUT Q6H [facility]; Protocol Last Admin: 08/03/19 04:42 Dose: Not Given Levothyroxine Sodium (Synthroid) 100 mcg GTUBE DAILY [facility] Last Admin: 08/03/19 10:26 Dose: 100 mcg Miscellaneous Information (Remove Patch) 1 ea TRDERM Q24H [facility] Non-Formulary Nutritional Supplement [Osmolite 1.2 Tony] #Patient's Own# 70 ml GTUBE Q12HR [facility] Last Admin: 08/02/19 10:42 Dose: Not Given Levetiracetam [ Keppra] 100mg/Ml Oral Solution#Own Med# 5 ml GTUBE BID [facility] Last Admin: 08/03/19 10:28 Dose: 5 ml Non-Formulary Medication (Bromocriptine Mesylate [Parlodel]) 5 tab GTUBE DAILY [facility] Rivaroxaban (Xarelto) 20 mg PO WITHDINNER [facility] Last Admin: 08/02/19 18:04 Dose: 20 mg Scopolamine (Transderm-Scop) 1.5 mg TRDERM Q24H [facility] Sodium Chloride (Saline Flush) 10 ml FLUSH ASDIRECTED PRN PRN Reason: Keep Vein Open Discontinued Medications Acetaminophen (Tylenol) 650 mg RECTAL NOW STA Stop: 08/01/19 14:50 Last Admin: 08/01/19 15:00 Dose: 650 mg Albuterol/Ipratropium (Duoneb 3.0-0.5 Mg/3 Ml) 3 ml NEB ONETIME ONE Stop: 08/01/19 13:23 Last Admin: 08/01/19 13:39 Dose: 3 ml Sodium Chloride (Normal Saline) 1,000 mls @ 999 mls/hr IV ASDIRECTED [facility] Last Infusion: 08/01/19 14:50 Dose: Infused Piperacillin Sod/Tazobactam (Sod 3.375 gm/ Sodium Chloride) 100 mls @ 200 mls/ hr IV ONETIME ONE Stop: 08/01/19 14:42 Last Infusion: 08/01/19 15:52 Dose: Infused Sodium Chloride (Normal Saline) 1,000 mls @ 999 mls/hr IV .BOLUS ONE Stop: 08/01/19 15:50 Last Infusion: 08/01/19 15:52 Dose: 999 mls/hr Piperacillin Sod/Tazobactam (Sod 3.375 gm/ Sodium Chloride) 100 mls @ 200 mls/ hr IV Q6H [facility] Last Admin: 08/02/19 04:27 Dose: 200 mls/hr Iopamidol (Isovue-370 (76%)) 100 ml IVPUSH ONETIME ONE Stop: 08/01/19 17:23 Last Admin: 08/01/19 23:07 Dose: 75 ml Metformin HCl (Glucophage) 500 mg GTUBE BIDMEALS [facility] Last Admin: 08/02/19 10:43 Dose: Not Given Metoclopramide HCl (Reglan) 10 mg IVPUSH ONETIME ONE Stop: 08/01/19 13:01 Last Admin: 08/01/19 13:30 Dose: 10 mg Piperacillin Sod/Tazobactam Sod (Zosyn) Confirm Administered Dose 3.375 gm .ROUTE .STK-MED ONE Stop: 08/01/19 20:56 Last Admin: 08/01/19 21:19 Dose: Not Given Scopolamine (Transderm-Scop) 1.5 mg TRDERM Q72H PRN PRN Reason: Other Last Admin: 08/02/19 22:43 Dose: 1.5 mg - Exam General: Lethargic, Obtunded Neck: Supple Lungs: Crackles (bilateral crackles) Cardiovascular: Regular Rate, Regular Rhythm GI/Abdominal Exam: Normal Bowel Sounds, Soft, Non-Tender Extremities: Normal Inspection, Normal Range of Motion, Non-Tender Neurological: Other (cannot assess) Psy/Mental Status: Other (cannot assess) Sepsis Event Note - Evaluation Sepsis Screening Result: Sepsis Risk - Focused Exam Vital Signs: Vital Signs Temp Pulse Resp BP Pulse Ox 08/03/19 08:00 38.2 C H 89 48 H 117/63 99 08/03/19 04:00 37.1 C 88 32 H 98/60 95 08/03/19 00:00 37.7 C 96 36 H 111/63 94 L Date Exam was Performed: 08/03/19 Time Exam was Performed: 10:48 - Problem List Review Problem List Initiated/Reviewed/Updated: Yes - My Orders Last 24 Hours: My Active Orders 08/02/19 12:00 Piperacillin/Tazobactam [Zosyn] 3.375 gm Sodium Chloride 0.9% [Normal Saline] 100 ml IV Q6HR 08/02/19 18:00 Rivaroxaban [Xarelto] 20 mg PO WITHDINNER 08/03/19 23:00 Remove Patch 1 ea TRDERM Q24H Scopolamine [Transderm-Scop] 1.5 mg TRDERM Q24H 08/04/19 05:11 BASIC METABOLIC PANEL,BMP [CHEM] AM CBC W/O DIFF,HEMOGRAM [HEME] AM MAGNESIUM [CHEM] AM PHOSPHORUS [CHEM] AM - Plan Plan:: #Aspiration pneumonia #Acute hypoxic respiratory failure #Sepsis POA: tachycardia, fever -NPO, hold tube feeds -IVF -IV abx: IV Zosyn -monitor vital signs -Daily CBC -oxygen support to keep sats > 92% -CTPE: 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 malignancy? causing left bronchial obstruction, post obstructive pneumonia. -not a candidate for biopsy at this time due to high oxygen requirements. Patient is on a ventimask this morning. 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 -prognosis is poor/guarded -family considering palliative care
[2019-08-03] MEDS: Sodium Chloride 0.9% 1,000 ML IV SCH (12:23)
[2019-08-03] MEDS: Sodium Chloride 0.9% 10 ML Syringe FLUSH PRN (12:24)
[2019-08-03] MEDS: Rivaroxaban 10 MG Tab PO SCH (18:00)
[2019-08-03] MEDS: BROMOCRIPTINE MESYLATE 2.5 MG GTUBE SCH (21:58)
[2019-08-03] MEDS: atorvaSTATin 10 MG Tab GTUBE SCH (21:58)
[2019-08-03] MEDS: Remove Patch*SCOPOLAMINE TRDERM SCH (22:26)
[2019-08-03] MEDS: Scopolamine 1.5 MG Transdermal Patch TRDERM SCH (22:26)
[2019-08-04] MEDS ORDERED: Morphine 2 MG/ML Syringe IVPUSH ONE (00:19)
[2019-08-04] MEDS: Sodium Chloride 0.9% 1,000 ML IV SCH ×2 (02:39→16:26)
[2019-08-04] MEDS: Piperacillin/Tazobactam 3.375 GM in Sodium Chloride 0.9% 100 ML IV SCH ×4 (05:43→23:38)
[2019-08-04] MEDS: Insulin Lispro 100 Units/ML 3 ML Vial SUBCUT SCH ×4 (06:01→22:38)
[2019-08-04 06:51] LABS: ANION GAP 13.9 mEq/L (7-13); CHLORIDE,CL 107 mmol/L (98-107); SODIUM,NA 143 mmol/L (136-145)
[2019-08-04] MEDS: BROMOCRIPTINE MESYLATE 2.5 MG GTUBE SCH (09:54)
[2019-08-04] MEDS: LEVETIRACETAM 100 MG/ML GTUBE SCH ×2 (09:54→21:15)
[2019-08-04] MEDS: Levothyroxine 100 MCG Tab GTUBE SCH (09:55)
--- NOTE | 2019-08-04 11:57 | PCM.PN ---
- General Info Date of Service: 08/04/19 Admission Dx/Problem (Free Text): Admission Diagnosis/Problem Admission Diagnosis/Problem Aspiration pneumonia Subjective Update: Pt seen and examined at bedside Improved respiratory function, tachypnea improved, oxygen req down to 5L NC Able to respond with inaudible sounds to questions, obeys commands. unable to obtain ROS - Review of Systems Systems Review Comment:: unable to obtain ROS - Patient Data Vitals - Most Recent: Last Vital Signs Temp 36.8 C 08/04/19 08:54 Pulse 64 08/04/19 08:54 Resp 20 08/04/19 08:54 BP 94/49 L 08/04/19 08:54 Pulse Ox 96 08/04/19 08:54 Weight - Most Recent: 72.212 kg I&O - Last 24 Hours: Intake & Output 08/03/19 08/04/19 08/04/19 22:59 06:59 14:59 Intake Total 500 1732 Balance 500 1732 Lab Results Last 24 Hours: Laboratory Results - last 24 hr 08/01/19 08/03/19 08/03/19 Range/Units 14:21 12:20 17:59 WBC (5.0-10.0) 10^3/uL RBC (4.6-6.2) 10^6/uL Hgb (14.0-18.0) g/dL Hct (40.0-54.0) % MCV (80-100) fL MCH (27.0-34.0) pg MCHC (33.0-35.0) g/dL Plt Count (150-450) 10^3/uL Sodium (136-145) mmol/L Potassium (3.5-5.1) mmol/L Chloride (98-107) mmol/L Carbon Dioxide (21-32) mmol/L Anion Gap (7-13) mEq/L BUN (7-18) mg/dL Creatinine (0.70-1.30) mg/dL Est Cr Clr Drug Dosing mL/min Estimated GFR (MDRD) Glucose (74-99) mg/dL POC Glucose 89 100 (70-105) mg/dl Calcium (8.5-10.1) mg/dL Phosphorus (2.6-4.7) mg/dL Magnesium (1.8-2.4) mg/dL COVID-19 PCR Not detected (NOT DETECT) 08/03/19 08/04/19 08/04/19 Range/Units 21:09 05:49 06:00 WBC 6.3 (5.0-10.0) 10^3/uL RBC 3.50 L (4.6-6.2) 10^6/uL Hgb 10.7 L (14.0-18.0) g/dL Hct 32.7 L (40.0-54.0) % MCV 93.4 (80-100) fL MCH 30.6 (27.0-34.0) pg MCHC 32.7 L (33.0-35.0) g/dL Plt Count 273 (150-450) 10^3/uL Sodium (136-145) mmol/L Potassium (3.5-5.1) mmol/L Chloride (98-107) mmol/L Carbon Dioxide (21-32) mmol/L Anion Gap (7-13) mEq/L BUN (7-18) mg/dL Creatinine (0.70-1.30) mg/dL Est Cr Clr Drug Dosing mL/min Estimated GFR (MDRD) Glucose (74-99) mg/dL POC Glucose 96 91 (70-105) mg/dl Calcium (8.5-10.1) mg/dL Phosphorus (2.6-4.7) mg/dL Magnesium (1.8-2.4) mg/dL COVID-19 PCR (NOT DETECT) 08/04/19 08/04/19 Range/Units 06:00 11:23 WBC (5.0-10.0) 10^3/uL RBC (4.6-6.2) 10^6/uL Hgb (14.0-18.0) g/dL Hct (40.0-54.0) % MCV (80-100) fL MCH (27.0-34.0) pg MCHC (33.0-35.0) g/dL Plt Count (150-450) 10^3/uL Sodium 143 (136-145) mmol/L Potassium 3.9 (3.5-5.1) mmol/L Chloride 107 (98-107) mmol/L Carbon Dioxide 26 (21-32) mmol/L Anion Gap 13.9 H (7-13) mEq/L BUN 16 (7-18) mg/dL Creatinine 0.69 L (0.70-1.30) mg/dL Est Cr Clr Drug Dosing 119.19 mL/min Estimated GFR (MDRD) > 60 Glucose 89 (74-99) mg/dL POC Glucose 96 (70-105) mg/dl Calcium 8.0 L (8.5-10.1) mg/dL Phosphorus 2.8 (2.6-4.7) mg/dL Magnesium 2.0 (1.8-2.4) mg/dL COVID-19 PCR (NOT DETECT) Simeon Results Last 24 Hours: Microbiology 08/01/19 13:15 Aerobic Blood Culture - Preliminary Blood - Venous NO GROWTH AFTER 2 DAYS Anaerobic Blood Culture - Final 08/01/19 13:23 Aerobic Blood Culture - Preliminary Blood - Venous - Lab Draw NO GROWTH AFTER 2 DAYS Anaerobic Blood Culture - Final Med Orders - Current: Current Medications Acetaminophen (Tylenol Solution) 640 mg PO Q4H PRN PRN Reason: Pain/Fever Atorvastatin Calcium (Lipitor) 10 mg GTUBE BEDTIME [facility] Last Admin: 08/03/19 21:58 Dose: 10 mg Sodium Chloride (Normal Saline) 1,000 mls @ 75 mls/hr IV ASDIRECTED DOE Last Admin: 08/04/19 02:39 Dose: 75 mls/hr Piperacillin Sod/Tazobactam (Sod 3.375 gm/ Sodium Chloride) 100 mls @ 200 mls/ hr IV Q6HR [facility] Last Admin: 08/04/19 05:43 Dose: 200 mls/hr Insulin Human Lispro (Humalog) 0 unit SUBCUT Q6H [facility]; Protocol Last Admin: 08/04/19 11:35 Dose: Not Given Levothyroxine Sodium (Synthroid) 100 mcg GTUBE DAILY [facility] Last Admin: 08/04/19 09:55 Dose: 100 mcg Miscellaneous Information (Remove Patch) 1 ea TRDERM Q24H DOE Last Admin: 08/03/19 22:26 Dose: 1 ea Non-Formulary Nutritional Supplement [Osmolite 1.2 Tony] #Patient's Own# 70 ml GTUBE Q12HR DOE Last Admin: 08/02/19 10:42 Dose: Not Given Levetiracetam [ Keppra] 100mg/Ml Oral Solution#Own Med# 5 ml GTUBE BID DOE Last Admin: 08/04/19 09:54 Dose: 5 ml Bromocriptine Mesylate [Parlodel] 2.5mg Tabs Pt Own Meds 0 tab GTUBE BID [facility] Last Admin: 08/04/19 09:54 Dose: 2 tab Rivaroxaban (Xarelto) 20 mg PO WITHDINNER [facility] Last Admin: 08/03/19 18:00 Dose: 20 mg Scopolamine (Transderm-Scop) 1.5 mg TRDERM Q24H [facility] Last Admin: 08/03/19 22:26 Dose: 1.5 mg Sodium Chloride (Saline Flush) 10 ml FLUSH ASDIRECTED PRN PRN Reason: Keep Vein Open Last Admin: 08/03/19 12:24 Dose: 10 ml Discontinued Medications Acetaminophen (Tylenol) 650 mg RECTAL NOW STA Stop: 08/01/19 14:50 Last Admin: 08/01/19 15:00 Dose: 650 mg Acetaminophen (Tylenol) 650 mg GTUBE Q4H PRN PRN Reason: Pain/Fever Last Admin: 08/03/19 16:07 Dose: 650 mg Albuterol/Ipratropium (Duoneb 3.0-0.5 Mg/3 Ml) 3 ml NEB ONETIME ONE Stop: 08/01/19 13:23 Last Admin: 08/01/19 13:39 Dose: 3 ml Sodium Chloride (Normal Saline) 1,000 mls @ 999 mls/hr IV ASDIRECTED [facility] Last Infusion: 08/01/19 14:50 Dose: Infused Piperacillin Sod/Tazobactam (Sod 3.375 gm/ Sodium Chloride) 100 mls @ 200 mls/ hr IV ONETIME ONE Stop: 08/01/19 14:42 Last Infusion: 08/01/19 15:52 Dose: Infused Sodium Chloride (Normal Saline) 1,000 mls @ 999 mls/hr IV .BOLUS ONE Stop: 08/01/19 15:50 Last Infusion: 08/01/19 15:52 Dose: 999 mls/hr Piperacillin Sod/Tazobactam (Sod 3.375 gm/ Sodium Chloride) 100 mls @ 200 mls/ hr IV Q6H [facility] Last Admin: 08/02/19 04:27 Dose: 200 mls/hr Iopamidol (Isovue-370 (76%)) 100 ml IVPUSH ONETIME ONE Stop: 08/01/19 17:23 Last Admin: 08/01/19 23:07 Dose: 75 ml Metformin HCl (Glucophage) 500 mg GTUBE BIDMEALS DOE Last Admin: 08/02/19 10:43 Dose: Not Given Metoclopramide HCl (Reglan) 10 mg IVPUSH ONETIME ONE Stop: 08/01/19 13:01 Last Admin: 08/01/19 13:30 Dose: 10 mg Morphine Sulfate (Morphine) 1 mg IVPUSH ONETIME ONE Stop: 08/04/19 00:20 Last Admin: 08/04/19 00:32 Dose: 1 mg Piperacillin Sod/Tazobactam Sod (Zosyn) Confirm Administered Dose 3.375 gm .ROUTE .STK-MED ONE Stop: 08/01/19 20:56 Last Admin: 08/01/19 21:19 Dose: Not Given Scopolamine (Transderm-Scop) 1.5 mg TRDERM Q72H PRN PRN Reason: Other Last Admin: 08/02/19 22:43 Dose: 1.5 mg - Exam General: Other HEENT: Pupils Equal, Pupils Reactive Neck: Supple Lungs: Crackles (bacterial) Cardiovascular: Regular Rate, Regular Rhythm GI/Abdominal Exam: Normal Bowel Sounds, Soft, Non-Tender, No Organomegaly Extremities: Normal Inspection, Normal Range of Motion, Non-Tender, No Pedal Edema Neurological: Other Psy/Mental Status: Other Sepsis Event Note - Evaluation Sepsis Screening Result: No Definite Risk - Focused Exam Vital Signs: Vital Signs Temp Pulse Resp BP Pulse Ox 08/04/19 08:54 36.8 C 64 20 94/49 L 96 08/04/19 08:35 64 H 97 08/04/19 03:21 37.3 C 75 48 H 102/57 L 97 08/04/19 00:00 37.3 C 72 52 H 93/53 L 98 Date Exam was Performed: 08/04/19 Time Exam was Performed: 11:51 - Problem List Review Problem List Initiated/Reviewed/Updated: Yes - My Orders Last 24 Hours: My Active Orders 08/03/19 18:22 Acetaminophen [Tylenol Solution] 640 mg PO Q4H PRN 08/03/19 21:00 Bromocriptine Mesylate [Parlodel] 0 tab GTUBE BID 08/03/19 23:00 Remove Patch 1 ea TRDERM Q24H Scopolamine [Transderm-Scop] 1.5 mg TRDERM Q24H 08/05/19 05:11 BASIC METABOLIC PANEL,BMP [CHEM] AM CBC W/O DIFF,HEMOGRAM [HEME] AM 08/06/19 05:11 BASIC METABOLIC PANEL,BMP [CHEM] AM CBC W/O DIFF,HEMOGRAM [HEME] AM 08/07/19 05:11 BASIC METABOLIC PANEL,BMP [CHEM] AM CBC W/O DIFF,HEMOGRAM [HEME] AM - Plan Plan:: #Aspiration pneumonia #Acute hypoxic respiratory failure #Sepsis POA: tachycardia, fever -IVF -IV abx: continue IV Zosyn -monitor vital signs -Daily CBC -oxygen support to keep sats > 92% -CTPE: 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 malignancy? causing left bronchial obstruction, post obstructive pneumonia. -can restart tube feeds #Hx of DM -accuchecks Q6hr, ISS #AMS, lethargy, obtunded -?paraneoplastic syndrome -psych meds have been held -discontinue bromocriptine #Hx of seizure medications -continue Keppra #Hx of hypothyroidism -continue levothyroxine #Hx of HLD -continue atorvastatin #Hx of PE -on xarelto #DVT ppx -on xarelto #Code status #Goals of care -DNR/DNI. -prognosis is poor/guarded -family considering palliative care Discussed with Leobardo, patient's POA. Updated her on patient's improvement
[2019-08-04] MEDS: Rivaroxaban 10 MG Tab PO SCH (17:49)
[2019-08-04] MEDS: atorvaSTATin 10 MG Tab GTUBE SCH (21:16)
[2019-08-04] MEDS: NUTRITIONAL SUPPLEMENT GTUBE SCH (21:20)
[2019-08-04] MEDS: Remove Patch*SCOPOLAMINE TRDERM SCH (22:35)
[2019-08-04] MEDS: Scopolamine 1.5 MG Transdermal Patch TRDERM SCH (22:36)
[2019-08-05] MEDS: Piperacillin/Tazobactam 3.375 GM in Sodium Chloride 0.9% 100 ML IV SCH ×4 (05:42→23:35)
[2019-08-05] MEDS: Sodium Chloride 0.9% 1,000 ML IV SCH ×2 (05:50→20:05)
[2019-08-05] MEDS: Insulin Lispro 100 Units/ML 3 ML Vial SUBCUT SCH ×4 (06:02→23:40)
[2019-08-05 06:46] LABS: ANION GAP 15.5 mEq/L (7-13); CHLORIDE,CL 109 mmol/L (98-107); SODIUM,NA 146 mmol/L (136-145)
[2019-08-05] MEDS: LEVETIRACETAM 100 MG/ML GTUBE SCH ×2 (09:36→21:12)
[2019-08-05] MEDS: Levothyroxine 100 MCG Tab GTUBE SCH (09:37)
[2019-08-05] MEDS: NUTRITIONAL SUPPLEMENT GTUBE SCH (09:39)
--- NOTE | 2019-08-05 13:33 | PCM.PN ---
- General Info Date of Service: 08/05/19 Admission Dx/Problem (Free Text): Admission Diagnosis/Problem Admission Diagnosis/Problem Aspiration pneumonia Subjective Update: Pt seen and examined at bedside Improved respiratory function, tachypnea improved, oxygen req down to 2L NC Able to respond to questions, obeys commands. unable to obtain ROS - Review of Systems Systems Review Comment:: unable to obtain ROS - Patient Data Vitals - Most Recent: Last Vital Signs Temp 36.9 C 08/05/19 12:00 Pulse 63 08/05/19 12:00 Resp 20 08/05/19 12:00 BP 121/71 08/05/19 12:00 Pulse Ox 98 08/05/19 12:00 Weight - Most Recent: 73.21 kg I&O - Last 24 Hours: Intake & Output 08/04/19 08/05/19 08/05/19 22:59 06:59 14:59 Intake Total 829 1210 105 Balance 829 1210 105 Lab Results Last 24 Hours: Laboratory Results - last 24 hr 08/05/19 08/05/19 Range/Units 06:05 06:05 WBC 3.9 L (5.0-10.0) 10^3/uL RBC 3.55 L (4.6-6.2) 10^6/uL Hgb 10.8 L (14.0-18.0) g/dL Hct 33.1 L (40.0-54.0) % MCV 93.2 (80-100) fL MCH 30.4 (27.0-34.0) pg MCHC 32.6 L (33.0-35.0) g/dL Plt Count 316 (150-450) 10^3/uL Sodium 146 H (136-145) mmol/L Potassium 3.5 (3.5-5.1) mmol/L Chloride 109 H (98-107) mmol/L Carbon Dioxide 25 (21-32) mmol/L Anion Gap 15.5 H (7-13) mEq/L BUN 16 (7-18) mg/dL Creatinine 0.63 L (0.70-1.30) mg/dL Est Cr Clr Drug Dosing 132.35 mL/min Estimated GFR (MDRD) > 60 Glucose 95 (74-99) mg/dL Calcium 8.1 L (8.5-10.1) mg/dL Simeon Results Last 24 Hours: Microbiology 08/01/19 13:15 Aerobic Blood Culture - Preliminary Blood - Venous NO GROWTH AFTER 4 DAYS Anaerobic Blood Culture - Final 08/01/19 13:23 Aerobic Blood Culture - Preliminary Blood - Venous - Lab Draw NO GROWTH AFTER 4 DAYS Anaerobic Blood Culture - Final Med Orders - Current: Current Medications Acetaminophen (Tylenol Solution) 640 mg PO Q4H PRN PRN Reason: Pain/Fever Atorvastatin Calcium (Lipitor) 10 mg GTUBE BEDTIME [facility] Last Admin: 08/04/19 21:16 Dose: 10 mg Sodium Chloride (Normal Saline) 1,000 mls @ 75 mls/hr IV ASDIRECTED [facility] Last Admin: 08/05/19 05:50 Dose: 75 mls/hr Piperacillin Sod/Tazobactam (Sod 3.375 gm/ Sodium Chloride) 100 mls @ 200 mls/ hr IV Q6HR [facility] Last Infusion: 08/05/19 12:40 Dose: Infused Insulin Human Lispro (Humalog) 0 unit SUBCUT Q6H [facility]; Protocol Last Admin: 08/05/19 12:31 Dose: Not Given Levothyroxine Sodium (Synthroid) 100 mcg GTUBE DAILY [facility] Last Admin: 08/05/19 09:37 Dose: 100 mcg Miscellaneous Information (Remove Patch) 1 ea TRDERM Q24H [facility] Last Admin: 08/04/19 22:35 Dose: 1 ea Non-Formulary Nutritional Supplement [Osmolite 1.2 Tony] #Patient's Own# 70 ml GTUBE Q12HR [facility] Last Admin: 08/05/19 09:39 Dose: 70 ml Levetiracetam [ Keppra] 100mg/Ml Oral Solution#Own Med# 5 ml GTUBE BID [facility] Last Admin: 08/05/19 09:36 Dose: 5 ml Rivaroxaban (Xarelto) 20 mg PO WITHDINNER [facility] Last Admin: 08/04/19 17:49 Dose: 20 mg Scopolamine (Transderm-Scop) 1.5 mg TRDERM Q24H [facility] Last Admin: 08/04/19 22:36 Dose: 1.5 mg Sodium Chloride (Saline Flush) 10 ml FLUSH ASDIRECTED PRN PRN Reason: Keep Vein Open Last Admin: 08/03/19 12:24 Dose: 10 ml Discontinued Medications Acetaminophen (Tylenol) 650 mg RECTAL NOW STA Stop: 08/01/19 14:50 Last Admin: 08/01/19 15:00 Dose: 650 mg Acetaminophen (Tylenol) 650 mg GTUBE Q4H PRN PRN Reason: Pain/Fever Last Admin: 08/03/19 16:07 Dose: 650 mg Albuterol/Ipratropium (Duoneb 3.0-0.5 Mg/3 Ml) 3 ml NEB ONETIME ONE Stop: 08/01/19 13:23 Last Admin: 08/01/19 13:39 Dose: 3 ml Sodium Chloride (Normal Saline) 1,000 mls @ 999 mls/hr IV ASDIRECTED DOE Last Infusion: 08/01/19 14:50 Dose: Infused Piperacillin Sod/Tazobactam (Sod 3.375 gm/ Sodium Chloride) 100 mls @ 200 mls/ hr IV ONETIME ONE Stop: 08/01/19 14:42 Last Infusion: 08/01/19 15:52 Dose: Infused Sodium Chloride (Normal Saline) 1,000 mls @ 999 mls/hr IV .BOLUS ONE Stop: 08/01/19 15:50 Last Infusion: 08/01/19 15:52 Dose: 999 mls/hr Piperacillin Sod/Tazobactam (Sod 3.375 gm/ Sodium Chloride) 100 mls @ 200 mls/ hr IV Q6H [facility] Last Admin: 08/02/19 04:27 Dose: 200 mls/hr Iopamidol (Isovue-370 (76%)) 100 ml IVPUSH ONETIME ONE Stop: 08/01/19 17:23 Last Admin: 08/01/19 23:07 Dose: 75 ml Metformin HCl (Glucophage) 500 mg GTUBE BIDMEALS [facility] Last Admin: 08/02/19 10:43 Dose: Not Given Metoclopramide HCl (Reglan) 10 mg IVPUSH ONETIME ONE Stop: 08/01/19 13:01 Last Admin: 08/01/19 13:30 Dose: 10 mg Morphine Sulfate (Morphine) 1 mg IVPUSH ONETIME ONE Stop: 08/04/19 00:20 Last Admin: 08/04/19 00:32 Dose: 1 mg Bromocriptine Mesylate [Parlodel] 2.5mg Tabs Pt Own Meds 0 tab GTUBE BID [facility] Last Admin: 08/04/19 09:54 Dose: 2 tab Piperacillin Sod/Tazobactam Sod (Zosyn) Confirm Administered Dose 3.375 gm .ROUTE .STK-MED ONE Stop: 08/01/19 20:56 Last Admin: 08/01/19 21:19 Dose: Not Given Scopolamine (Transderm-Scop) 1.5 mg TRDERM Q72H PRN PRN Reason: Other Last Admin: 08/02/19 22:43 Dose: 1.5 mg - Exam General: Alert, No Acute Distress Neck: Supple, Trachea Midline Lungs: Crackles. No: Stridor, Wheezing Cardiovascular: Regular Rate, Regular Rhythm GI/Abdominal Exam: Normal Bowel Sounds, Soft, Non-Tender, No Organomegaly Extremities: Normal Inspection, Normal Range of Motion, Non-Tender, No Pedal Edema Neurological: Other Psy/Mental Status: Other Physical Findings Comments:: cannot assess neurological and psych systems due to patient being non-verbal Sepsis Event Note - Evaluation Sepsis Screening Result: No Definite Risk - Focused Exam Vital Signs: Vital Signs Temp Pulse Resp BP BP Pulse Ox 08/05/19 12:00 36.9 C 63 20 121/71 98 08/05/19 08:19 36.9 C 64 20 119/73 98 08/05/19 04:00 37.3 C 54 L 32 H 110/62 97 Date Exam was Performed: 08/05/19 Time Exam was Performed: 13:28 - Problem List Review Problem List Initiated/Reviewed/Updated: Yes - My Orders Last 24 Hours: My Active Orders 08/05/19 13:13 Tube Feeding [Enteral Feedings] [RC] Click to Edit 08/06/19 05:11 BASIC METABOLIC PANEL,BMP [CHEM] AM CBC W/O DIFF,HEMOGRAM [HEME] AM 08/07/19 05:11 BASIC METABOLIC PANEL,BMP [CHEM] AM CBC W/O DIFF,HEMOGRAM [HEME] AM - Plan Plan:: #Aspiration pneumonia #Acute hypoxic respiratory failure, improving #Sepsis POA: tachycardia, fever -IVF -IV abx: continue IV Zosyn -monitor vital signs -Daily CBC -oxygen support to keep sats > 92% -CTPE: 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 malignancy? causing left bronchial obstruction, post obstructive pneumonia. -O/P pulmonary follow up for left hilar mass, repeat CT scan -continue tube feeds; strict aspiration precautions #Hx of DM -accuchecks Q6hr, ISS #AMS, lethargy, obtunded -?paraneoplastic syndrome -psych meds have been held #Hx of seizure medications -continue Keppra #Hx of hypothyroidism -continue levothyroxine #Hx of HLD -continue atorvastatin #Hx of PE -on xarelto #DVT ppx -on xarelto #Code status #Goals of care -DNR/DNI. -improving. Will likely transition to instructor modeling care -PT/OT
[2019-08-05] MEDS: Rivaroxaban 10 MG Tab PO SCH (18:07)
[2019-08-05] MEDS: Acetaminophen Soln 160 MG/5 ML UD Cup PO PRN (20:10)
[2019-08-05] MEDS: atorvaSTATin 10 MG Tab GTUBE SCH (20:10)
[2019-08-05] MEDS: Scopolamine 1.5 MG Transdermal Patch TRDERM SCH (23:42)
[2019-08-05] MEDS: Remove Patch*SCOPOLAMINE TRDERM SCH (23:42)
[2019-08-06] MEDS: Piperacillin/Tazobactam 3.375 GM in Sodium Chloride 0.9% 100 ML IV SCH ×4 (05:27→23:42)
[2019-08-06] MEDS: Insulin Lispro 100 Units/ML 3 ML Vial SUBCUT SCH ×4 (05:38→23:37)
[2019-08-06 06:46] LABS: CHLORIDE,CL 110 mmol/L (98-107); SODIUM,NA 147 mmol/L (136-145)
[2019-08-06] MEDS: Levothyroxine 100 MCG Tab GTUBE SCH (10:05)
[2019-08-06] MEDS: LEVETIRACETAM 100 MG/ML GTUBE SCH ×2 (10:06→21:29)
--- NOTE | 2019-08-06 11:01 | PCM.PN ---
- General Info Date of Service: 08/06/19 Admission Dx/Problem (Free Text): Admission Diagnosis/Problem Admission Diagnosis/Problem Aspiration pneumonia Subjective Update: Pt seen and examined at bedside Improved respiratory function, tachypnea improved, oxygen req down Able to respond to questions, obeys commands. More responsive unable to obtain ROS - Review of Systems Systems Review Comment:: unable to obtain ROS - Patient Data Vitals - Most Recent: Last Vital Signs Temp 36.9 C 08/06/19 08:09 Pulse 61 08/06/19 08:09 Resp 20 08/06/19 08:09 BP 111/62 08/06/19 08:09 Pulse Ox 94 L 08/06/19 09:18 Weight - Most Recent: 74.48 kg I&O - Last 24 Hours: Intake & Output 08/05/19 08/06/19 08/06/19 22:59 06:59 14:59 Intake Total 955 2301 Balance 955 2301 Lab Results Last 24 Hours: Laboratory Results - last 24 hr 08/06/19 08/06/19 Range/Units 05:55 05:55 WBC 4.6 L (5.0-10.0) 10^3/uL RBC 3.54 L (4.6-6.2) 10^6/uL Hgb 10.8 L (14.0-18.0) g/dL Hct 32.4 L (40.0-54.0) % MCV 91.5 (80-100) fL MCH 30.5 (27.0-34.0) pg MCHC 33.3 (33.0-35.0) g/dL Plt Count 299 (150-450) 10^3/uL Sodium 147 H (136-145) mmol/L Potassium 3.0 L (3.5-5.1) mmol/L Chloride 110 H (98-107) mmol/L Carbon Dioxide 25 (21-32) mmol/L Anion Gap 15.0 H (7-13) mEq/L BUN 13 (7-18) mg/dL Creatinine 0.70 (0.70-1.30) mg/dL Est Cr Clr Drug Dosing 121.18 mL/min Estimated GFR (MDRD) > 60 Glucose 200 H (74-99) mg/dL Calcium 7.4 L (8.5-10.1) mg/dL [facility]on Results Last 24 Hours: Microbiology 08/01/19 13:15 Aerobic Blood Culture - Preliminary Blood - Venous NO GROWTH AFTER 4 DAYS Anaerobic Blood Culture - Final 08/01/19 13:23 Aerobic Blood Culture - Preliminary Blood - Venous - Lab Draw NO GROWTH AFTER 4 DAYS Anaerobic Blood Culture - Final Med Orders - Current: Current Medications Acetaminophen (Tylenol Solution) 640 mg PO Q4H PRN PRN Reason: Pain/Fever Last Admin: 08/05/19 20:10 Dose: 640 mg Atorvastatin Calcium (Lipitor) 10 mg GTUBE BEDTIME [facility] Last Admin: 08/05/19 20:10 Dose: 10 mg Piperacillin Sod/Tazobactam (Sod 3.375 gm/ Sodium Chloride) 100 mls @ 200 mls/ hr IV Q6HR [facility] Last Infusion: 08/06/19 06:04 Dose: Infused Insulin Human Lispro (Humalog) 0 unit SUBCUT Q6H [facility]; Protocol Last Admin: 08/06/19 05:38 Dose: 2 units Levothyroxine Sodium (Synthroid) 100 mcg GTUBE DAILY [facility] Last Admin: 08/06/19 10:05 Dose: 100 mcg Miscellaneous Information (Remove Patch) 1 ea TRDERM Q24H [facility] Last Admin: 08/05/19 23:42 Dose: 1 ea Levetiracetam [ Keppra] 100mg/Ml Oral Solution#Own Med# 5 ml GTUBE BID [facility] Last Admin: 08/06/19 10:06 Dose: 5 ml Rivaroxaban (Xarelto) 20 mg PO WITHDINNER [facility] Last Admin: 08/05/19 18:07 Dose: 20 mg Scopolamine (Transderm-Scop) 1.5 mg TRDERM Q24H [facility] Last Admin: 08/05/19 23:42 Dose: 1.5 mg Sodium Chloride (Saline Flush) 10 ml FLUSH ASDIRECTED PRN PRN Reason: Keep Vein Open Last Admin: 08/03/19 12:24 Dose: 10 ml Discontinued Medications Acetaminophen (Tylenol) 650 mg RECTAL NOW STA Stop: 08/01/19 14:50 Last Admin: 08/01/19 15:00 Dose: 650 mg Acetaminophen (Tylenol) 650 mg GTUBE Q4H PRN PRN Reason: Pain/Fever Last Admin: 08/03/19 16:07 Dose: 650 mg Albuterol/Ipratropium (Duoneb 3.0-0.5 Mg/3 Ml) 3 ml NEB ONETIME ONE Stop: 08/01/19 13:23 Last Admin: 08/01/19 13:39 Dose: 3 ml Sodium Chloride (Normal Saline) 1,000 mls @ 999 mls/hr IV ASDIRECTED [facility] Last Infusion: 08/01/19 14:50 Dose: Infused Piperacillin Sod/Tazobactam (Sod 3.375 gm/ Sodium Chloride) 100 mls @ 200 mls/ hr IV ONETIME ONE Stop: 08/01/19 14:42 Last Infusion: 08/01/19 15:52 Dose: Infused Sodium Chloride (Normal Saline) 1,000 mls @ 999 mls/hr IV .BOLUS ONE Stop: 08/01/19 15:50 Last Infusion: 08/01/19 15:52 Dose: 999 mls/hr Piperacillin Sod/Tazobactam (Sod 3.375 gm/ Sodium Chloride) 100 mls @ 200 mls/ hr IV Q6H [facility] Last Admin: 08/02/19 04:27 Dose: 200 mls/hr Sodium Chloride (Normal Saline) 1,000 mls @ 75 mls/hr IV ASDIRECTED [facility] Last Admin: 08/05/19 20:05 Dose: 75 mls/hr Iopamidol (Isovue-370 (76%)) 100 ml IVPUSH ONETIME ONE Stop: 08/01/19 17:23 Last Admin: 08/01/19 23:07 Dose: 75 ml Metformin HCl (Glucophage) 500 mg GTUBE BIDMEALS [facility] Last Admin: 08/02/19 10:43 Dose: Not Given Metoclopramide HCl (Reglan) 10 mg IVPUSH ONETIME ONE Stop: 08/01/19 13:01 Last Admin: 08/01/19 13:30 Dose: 10 mg Morphine Sulfate (Morphine) 1 mg IVPUSH ONETIME ONE Stop: 08/04/19 00:20 Last Admin: 08/04/19 00:32 Dose: 1 mg Non-Formulary Nutritional Supplement [Osmolite 1.2 Tony] #Patient's Own# 70 ml GTUBE Q12HR [facility] Last Admin: 08/05/19 09:39 Dose: 70 ml Bromocriptine Mesylate [Parlodel] 2.5mg Tabs Pt Own Meds 0 tab GTUBE BID DOE Last Admin: 08/04/19 09:54 Dose: 2 tab Piperacillin Sod/Tazobactam Sod (Zosyn) Confirm Administered Dose 3.375 gm .ROUTE .STK-MED ONE Stop: 08/01/19 20:56 Last Admin: 08/01/19 21:19 Dose: Not Given Scopolamine (Transderm-Scop) 1.5 mg TRDERM Q72H PRN PRN Reason: Other Last Admin: 08/02/19 22:43 Dose: 1.5 mg - Exam General: Alert, No Acute Distress HEENT: Pupils Equal, Pupils Reactive Neck: Supple Lungs: Clear to Auscultation, Normal Respiratory Effort Cardiovascular: Regular Rate, Regular Rhythm GI/Abdominal Exam: Normal Bowel Sounds, Soft, Non-Tender Extremities: Normal Inspection, Normal Range of Motion, Non-Tender, No Pedal Edema Neurological: Other (unable to assess) Psy/Mental Status: Other (unable to assess) Sepsis Event Note - Evaluation Sepsis Screening Result: Sepsis Risk - Focused Exam Vital Signs: Vital Signs Temp Pulse Resp BP Pulse Ox Pulse Ox 08/06/19 09:18 94 L 08/06/19 08:09 36.9 C 61 20 111/62 94 L 08/06/19 04:00 37.2 C 57 L 36 H 112/56 L 93 L 08/06/19 00:00 37.0 C 51 L 32 H 100/54 L 93 L Date Exam was Performed: 08/06/19 Time Exam was Performed: 10:57 - Problem List Review Problem List Initiated/Reviewed/Updated: Yes - My Orders Last 24 Hours: My Active Orders 08/05/19 13:13 Tube Feeding [Enteral Feedings] [RC] Click to Edit 08/05/19 14:00 OT Evaluation and Treatment [CONS] Routine PT Evaluation and Treatment [CONS] Routine 08/07/19 05:11 BASIC METABOLIC PANEL,BMP [CHEM] AM CBC W/O DIFF,HEMOGRAM [HEME] AM - Plan Plan:: #Aspiration pneumonia #Acute hypoxic respiratory failure, improving #Sepsis POA: tachycardia, fever -IVF -IV abx: continue IV Zosyn. Plan to treat for 2 weeks total. 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 malignancy? causing left bronchial obstruction, post obstructive pneumonia. -O/P pulmonary follow up for left hilar mass, repeat CT scan -continue tube feeds; strict aspiration precautions #Hx of DM -accuchecks Q6hr, ISS #AMS, lethargy, obtunded -?paraneoplastic syndrome -psych meds have been held #Hx of seizure medications -continue Keppra #Hx of hypothyroidism -continue levothyroxine #Hx of HLD -continue atorvastatin #Hx of PE -on xarelto #DVT ppx -on xarelto #Code status #Goals of care -DNR/DNI. -improving. Will likely transition to terminal clerk care -PT/OT
[2019-08-06] MEDS ORDERED: levETIRAcetam 500 MG Tab PO ONE (13:02)
[2019-08-06] MEDS ORDERED: LEVETIRACETAM 100 MG/ML GTUBE ONE (13:30)
--- NOTE | 2019-08-06 14:20 | CT ---
EXAMINATION: Head wo Cont SEX: Male AGE: 58 years CLINICAL HISTORY: 58-year-old male recently diagnosed and treated (anticoagulation) for pulmonary embolism, now injured in fall. Seizure? Rule out skull fracture and/or intracranial bleed. Comparison CT head and brain 17 July 2019. Scan technique: Volume acquisition of data emergency unenhanced CT scan of the head and brain obtained with the patient lying supine on the Siemens multi slice CT scanner [place], [place]. All data archived in the PACS system for storage, reformatting axial/sagittal/coronal planes and study (bone/brain windows). Interpretation: 1. Uniformly thick bony calvarium without sign of skull fracture, underlying brain contusion or abnormal extracerebral/intracranial epidural or subdural hematoma (bleed). 2. Symmetric renal cortical atrophy pattern with underlying mirror-image normal ventricular system. 3. Signs of multi-infarct ischemic disease (including large lacunar infarct basal ganglia on the left) that was "present" on previous MRI 2015). 4. Subtle generalized decreased attenuation throughout the parietal lobe on the left today could represent acute ischemia. Follow-up please. 5. No sign of acute intracerebral, intraventricular, or subarachnoid bleed. 6. Symmetric clear pneumatization of the paranasal and mastoid sinuses i.e. no inflammatory changes, soft tissue mass or bony destruction. CONCLUSION: No sign of skull fracture, brain contusion or intracranial bleed. Atrophy and multi-infarct ischemic changes.
[2019-08-06] MEDS: Sodium Chloride 0.9% 10 ML Syringe FLUSH PRN ×2 (14:26→17:44)
[2019-08-06] MEDS ORDERED: Insulin Lispro 100 Units/ML 3 ML Vial SUBCUT SCH (17:00)
[2019-08-06] MEDS: Rivaroxaban 10 MG Tab PO SCH (17:35)
[2019-08-06] MEDS ORDERED: LORazepam 2 MG/ML SDV IVPUSH ONE (17:48)
[2019-08-06] MEDS ORDERED: LORazepam 2 MG/ML SDV IVPUSH PRN (17:53)
[2019-08-06] MEDS: Acetaminophen Soln 160 MG/5 ML UD Cup PO PRN (21:29)
[2019-08-06] MEDS: atorvaSTATin 10 MG Tab GTUBE SCH (21:29)
[2019-08-06] MEDS: Scopolamine 1.5 MG Transdermal Patch TRDERM SCH (23:39)
[2019-08-06] MEDS: Remove Patch*SCOPOLAMINE TRDERM SCH (23:39)
[2019-08-07] MEDS: Piperacillin/Tazobactam 3.375 GM in Sodium Chloride 0.9% 100 ML IV SCH ×2 (05:24→12:24)
[2019-08-07] MEDS: Sodium Chloride 0.9% 10 ML Syringe FLUSH PRN (05:29)
[2019-08-07] MEDS: Insulin Lispro 100 Units/ML 3 ML Vial SUBCUT SCH ×2 (05:33→12:05)
[2019-08-07 06:48] LABS: ANION GAP 14.1 mEq/L (7-13); CHLORIDE,CL 106 mmol/L (98-107); SODIUM,NA 144 mmol/L (136-145)
[2019-08-07] MEDS: LEVETIRACETAM 100 MG/ML GTUBE SCH (09:31)
[2019-08-07] MEDS: Levothyroxine 100 MCG Tab GTUBE SCH (09:32)
--- NOTE | 2019-08-07 10:39 | PCM.DCSUM1 ---
Discharge Summary - Hospital Course Free Text/Narrative:: 58 yo M with PMH of hypertension, sleep apnea, seizure disorder, anxiety disorder, hypothyroidism, bipolar disorder, behavioral disorder, intellectual disability. Had long stay in [facility] for nearly a year and a half before being transferred to a [facility] home in [place] [facility] three weeks ago.Was admitted at the [facility] because of decreased level of consciousness ,associated recurrent aspiration leading to acute hypoxemic respiratory failure and then transferred to [facility] two weeks ago. At [facility], was seen by Psych and Neurology and unclear reason for decreased consciousness, started on bromocriptine for possible NMS and his psych meds were all held. Had a feeding tube placed and discharged back to the [facility] home the day before admission Was brought to the ER on account of SOB. Was found to be febrile and hypoxic in the ED. Started on IV abx. COVID was negative. Likely aspiration pneumonia. Was placed on IV Zosyn and hypoxia improved. Had seizure during admission, one episode. Keppra increased to 1000 mg BID. Stopped bromocriptine. CTPE: 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 malignancy? causing left bronchial obstruction, post obstructive pneumonia. O/P pulmonary follow up for left hilar mass, repeat CT scan continue tube feeds; strict aspiration precautions Follow up with PCP Follow up with the psychiatry clinic for bipolar disorder. Home health ordered on discharge: Nursing for teaching on tube feeding, PT for strenghtening, OT for ADLs. Diagnosis: Stroke: No - Discharge Data Discharge Date: 08/07/19 Discharge Disposition: DC/Tfer to Other 70 Condition: Fair - Referral to Home Health Date of Face to Face Encounter: 08/07/19 Reason for Homebound Status: ambulatory dysfunction, home bound due to ambulatory dysfunction Primary Care Physician: Manish Valladares MD Skilled Need: Senior Care for teaching tube feeds, PT for strenghtening, OT for ADLs - Patient Summary/Data Consults: Consultations 08/05/19 14:00 OT Evaluation and Treatment [CONS] Routine PT Evaluation and Treatment [CONS] Routine - Patient Instructions Diet: Usual Diet as Tolerated Activity: As Tolerated - Discharge Plan *PRESCRIPTION DRUG MONITORING PROGRAM REVIEWED*: No *COPY OF PRESCRIPTION DRUG MONITORING REPORT IN PATIENT MARIBELL: No Prescriptions/Med Rec: Amoxicillin/Clavulanate K [Augmentin 875-125 MG] 1 tab GTUBE BID 7 Days #14 tablet Home Medications: Home Meds Levothyroxine [Synthroid] 100 mcg GTUBE DAILY 11/06/13 [History] atorvaSTATin [Lipitor] 10 mg GTUBE BEDTIME 07/17/19 [History] metFORMIN [Glucophage] 500 mg GTUBE BIDMEALS 07/17/19 [History] Rivaroxaban [Xarelto] 20 mg PO DAILY 08/01/19 [History] Amoxicillin/Clavulanate K [Augmentin 875-125 MG] 1 tab GTUBE BID 7 Days #14 tablet 08/07/19 [Rx] Nutritional Supplement [Osmolite 1.2 Tony] 140 ml GTUBE Q2HR #0 08/07/19 [Rx] levETIRAcetam [Keppra] 10 ml GTUBE BID #30 08/07/19 [Rx] Referrals: Manish Valladares MD [Primary Care Provider] - - Discharge Summary/Plan Comment DC Time >30 min.: Yes - General Info Date of Service: 08/07/19 Admission Dx/Problem (Free Text: Admission Diagnosis/Problem Admission Diagnosis/Problem Aspiration pneumonia Subjective Update: Pt seen and examined at bedside Improved respiratory function, tachypnea improved, oxygen req down to room air Able to respond to questions, obeys commands. More responsive unable to obtain ROS - Review of Systems Systems Review Comment: cannot obtain ROS as patient is non-verbal, but responsive. No painful or respiratory distress - Patient Data Vitals - Most Recent: Last Vital Signs Temp 37.1 C 08/07/19 08:11 Pulse 78 08/07/19 08:11 Resp 28 H 08/07/19 08:11 BP 140/77 08/07/19 08:11 Pulse Ox 96 08/07/19 08:11 Weight - Most Recent: 75.07 kg I&O - Last 24 hours: Intake & Output 08/06/19 08/07/19 08/07/19 22:59 06:59 14:59 Intake Total 1590 1130 Output Total 500 Balance 1590 630 Lab Results - Last 24 hrs: Laboratory Results - last 24 hr 08/04/19 08/04/19 08/05/19 Range/Units 17:59 21:06 04:57 WBC (5.0-10.0) 10^3/uL RBC (4.6-6.2) 10^6/uL Hgb (14.0-18.0) g/dL Hct (40.0-54.0) % MCV (80-100) fL MCH (27.0-34.0) pg MCHC (33.0-35.0) g/dL Plt Count (150-450) 10^3/uL Sodium (136-145) mmol/L Potassium (3.5-5.1) mmol/L Chloride (98-107) mmol/L Carbon Dioxide (21-32) mmol/L Anion Gap (7-13) mEq/L BUN (7-18) mg/dL Creatinine (0.70-1.30) mg/dL Est Cr Clr Drug Dosing mL/min Estimated GFR (MDRD) Glucose (74-99) mg/dL POC Glucose 99 83 92 (70-105) mg/dl Calcium (8.5-10.1) mg/dL 08/05/19 08/05/19 08/05/19 Range/Units 11:32 18:01 23:28 WBC (5.0-10.0) 10^3/uL RBC (4.6-6.2) 10^6/uL Hgb (14.0-18.0) g/dL Hct (40.0-54.0) % MCV (80-100) fL MCH (27.0-34.0) pg MCHC (33.0-35.0) g/dL Plt Count (150-450) 10^3/uL Sodium (136-145) mmol/L Potassium (3.5-5.1) mmol/L Chloride (98-107) mmol/L Carbon Dioxide (21-32) mmol/L Anion Gap (7-13) mEq/L BUN (7-18) mg/dL Creatinine (0.70-1.30) mg/dL Est Cr Clr Drug Dosing mL/min Estimated GFR (MDRD) Glucose (74-99) mg/dL POC Glucose 135 H 208 H 195 H (70-105) mg/dl Calcium (8.5-10.1) mg/dL 08/06/19 08/06/19 08/06/19 Range/Units 05:33 08:02 11:18 WBC (5.0-10.0) 10^3/uL RBC (4.6-6.2) 10^6/uL Hgb (14.0-18.0) g/dL Hct (40.0-54.0) % MCV (80-100) fL MCH (27.0-34.0) pg MCHC (33.0-35.0) g/dL Plt Count (150-450) 10^3/uL Sodium (136-145) mmol/L Potassium (3.5-5.1) mmol/L Chloride (98-107) mmol/L Carbon Dioxide (21-32) mmol/L Anion Gap (7-13) mEq/L BUN (7-18) mg/dL Creatinine (0.70-1.30) mg/dL Est Cr Clr Drug Dosing mL/min Estimated GFR (MDRD) Glucose (74-99) mg/dL POC Glucose 189 H 200 H 194 H (70-105) mg/dl Calcium (8.5-10.1) mg/dL 08/06/19 08/06/19 08/07/19 Range/Units 17:56 23:34 06:15 WBC 7.4 (5.0-10.0) 10^3/uL RBC 3.78 L (4.6-6.2) 10^6/uL Hgb 11.4 L (14.0-18.0) g/dL Hct 34.3 L (40.0-54.0) % MCV 90.7 (80-100) fL MCH 30.2 (27.0-34.0) pg MCHC 33.2 (33.0-35.0) g/dL Plt Count 286 (150-450) 10^3/uL Sodium (136-145) mmol/L Potassium (3.5-5.1) mmol/L Chloride (98-107) mmol/L Carbon Dioxide (21-32) mmol/L Anion Gap (7-13) mEq/L BUN (7-18) mg/dL Creatinine (0.70-1.30) mg/dL Est Cr Clr Drug Dosing mL/min Estimated GFR (MDRD) Glucose (74-99) mg/dL POC Glucose 131 H 141 H (70-105) mg/dl Calcium (8.5-10.1) mg/dL 08/07/19 Range/Units 06:15 WBC (5.0-10.0) 10^3/uL RBC (4.6-6.2) 10^6/uL Hgb (14.0-18.0) g/dL Hct (40.0-54.0) % MCV (80-100) fL MCH (27.0-34.0) pg MCHC (33.0-35.0) g/dL Plt Count (150-450) 10^3/uL Sodium 144 (136-145) mmol/L Potassium 3.1 L (3.5-5.1) mmol/L Chloride 106 (98-107) mmol/L Carbon Dioxide 27 (21-32) mmol/L Anion Gap 14.1 H (7-13) mEq/L BUN 8 (7-18) mg/dL Creatinine 0.69 L (0.70-1.30) mg/dL Est Cr Clr Drug Dosing 123.91 mL/min Estimated GFR (MDRD) > 60 Glucose 141 H (74-99) mg/dL POC Glucose (70-105) mg/dl Calcium 7.9 L (8.5-10.1) mg/dL NIDA Results - Last 24 hrs: Microbiology 08/01/19 13:15 Aerobic Blood Culture - Final Blood - Venous NO GROWTH AFTER 5 DAYS Anaerobic Blood Culture - Final 08/01/19 13:23 Aerobic Blood Culture - Final Blood - Venous - Lab Draw NO GROWTH AFTER 5 DAYS Anaerobic Blood Culture - Final Med Orders - Current: Current Medications Acetaminophen (Tylenol Solution) 640 mg PO Q4H PRN PRN Reason: Pain/Fever Last Admin: 08/06/19 21:29 Dose: 640 mg Atorvastatin Calcium (Lipitor) 10 mg GTUBE BEDTIME DOE Last Admin: 08/06/19 21:29 Dose: 10 mg Piperacillin Sod/Tazobactam (Sod 3.375 gm/ Sodium Chloride) 100 mls @ 200 mls/ hr IV Q6HR DOE Last Infusion: 08/07/19 06:03 Dose: Infused Insulin Human Lispro (Humalog) 0 unit SUBCUT Q6H DOE; Protocol Last Admin: 08/07/19 05:33 Dose: Not Given Levothyroxine Sodium (Synthroid) 100 mcg GTUBE DAILY DOE Last Admin: 08/07/19 09:32 Dose: 100 mcg Lorazepam (Ativan) 5 mg IVPUSH ONETIME PRN PRN Reason: Seizures Miscellaneous Information (Remove Patch) 1 ea TRDERM Q24H [facility] Last Admin: 08/06/19 23:39 Dose: 1 ea Levetiracetam [ Keppra] 100mg/Ml Oral Solution *Own Med* 10 ml GTUBE BID [facility] Last Admin: 08/07/19 09:31 Dose: 10 ml Rivaroxaban (Xarelto) 20 mg PO WITHDINNER [facility] Last Admin: 08/06/19 17:35 Dose: 20 mg Scopolamine (Transderm-Scop) 1.5 mg TRDERM Q24H [facility] Last Admin: 08/06/19 23:39 Dose: 1.5 mg Sodium Chloride (Saline Flush) 10 ml FLUSH ASDIRECTED PRN PRN Reason: Keep Vein Open Last Admin: 08/07/19 05:29 Dose: 10 ml Discontinued Medications Acetaminophen (Tylenol) 650 mg RECTAL NOW STA Stop: 08/01/19 14:50 Last Admin: 08/01/19 15:00 Dose: 650 mg Acetaminophen (Tylenol) 650 mg GTUBE Q4H PRN PRN Reason: Pain/Fever Last Admin: 08/03/19 16:07 Dose: 650 mg Albuterol/Ipratropium (Duoneb 3.0-0.5 Mg/3 Ml) 3 ml NEB ONETIME ONE Stop: 08/01/19 13:23 Last Admin: 08/01/19 13:39 Dose: 3 ml Sodium Chloride (Normal Saline) 1,000 mls @ 999 mls/hr IV ASDIRECTED [facility] Last Infusion: 08/01/19 14:50 Dose: Infused Piperacillin Sod/Tazobactam (Sod 3.375 gm/ Sodium Chloride) 100 mls @ 200 mls/ hr IV ONETIME ONE Stop: 08/01/19 14:42 Last Infusion: 08/01/19 15:52 Dose: Infused Sodium Chloride (Normal Saline) 1,000 mls @ 999 mls/hr IV .BOLUS ONE Stop: 08/01/19 15:50 Last Infusion: 08/01/19 15:52 Dose: 999 mls/hr Piperacillin Sod/Tazobactam (Sod 3.375 gm/ Sodium Chloride) 100 mls @ 200 mls/ hr IV Q6H [facility] Last Admin: 08/02/19 04:27 Dose: 200 mls/hr Sodium Chloride (Normal Saline) 1,000 mls @ 75 mls/hr IV ASDIRECTED [facility] Last Infusion: 08/06/19 10:24 Dose: Infused Insulin Human Lispro (Humalog) 0 unit SUBCUT Q6H [facility]; Protocol Last Admin: 08/06/19 14:20 Dose: 2 units Insulin Human Lispro (Humalog) 0 unit SUBCUT QIDACANDBED [facility]; Protocol Iopamidol (Isovue-370 (76%)) 100 ml IVPUSH ONETIME ONE Stop: 08/01/19 17:23 Last Admin: 08/01/19 23:07 Dose: 75 ml Lorazepam (Ativan) 5 mg IVPUSH ONETIME ONE Stop: 08/06/19 17:49 Last Admin: 08/06/19 17:53 Dose: Not Given Metformin HCl (Glucophage) 500 mg GTUBE BIDMEALS [facility] Last Admin: 08/02/19 10:43 Dose: Not Given Metoclopramide HCl (Reglan) 10 mg IVPUSH ONETIME ONE Stop: 08/01/19 13:01 Last Admin: 08/01/19 13:30 Dose: 10 mg Morphine Sulfate (Morphine) 1 mg IVPUSH ONETIME ONE Stop: 08/04/19 00:20 Last Admin: 08/04/19 00:32 Dose: 1 mg Non-Formulary Nutritional Supplement [Osmolite 1.2 Tony] #Patient's Own# 70 ml GTUBE Q12HR [facility] Last Admin: 08/05/19 09:39 Dose: 70 ml Levetiracetam [ Keppra] 100mg/Ml Oral Solution#Own Med# 5 ml GTUBE BID [facility] Last Admin: 08/06/19 10:06 Dose: 5 ml Bromocriptine Mesylate [Parlodel] 2.5mg Tabs Pt Own Meds 0 tab GTUBE BID [facility] Last Admin: 08/04/19 09:54 Dose: 2 tab Levetiracetam [ Keppra] 100mg/Ml Oral Solution *Own Med* 5 ml GTUBE ONETIME ONE Stop: 08/06/19 13:31 Last Admin: 08/06/19 14:19 Dose: 5 ml Piperacillin Sod/Tazobactam Sod (Zosyn) Confirm Administered Dose 3.375 gm .ROUTE .STK-MED ONE Stop: 08/01/19 20:56 Last Admin: 08/01/19 21:19 Dose: Not Given Scopolamine (Transderm-Scop) 1.5 mg TRDERM Q72H PRN PRN Reason: Other Last Admin: 08/02/19 22:43 Dose: 1.5 mg - Exam General: Reports: Alert HEENT: Reports: Pupils Equal, Pupils Reactive Neck: Reports: Supple Lungs: Reports: Clear to Auscultation, Normal Respiratory Effort Cardiovascular: Reports: Regular Rate, Regular Rhythm GI/Abdominal Exam: Normal Bowel Sounds, Soft, Non-Tender, No Organomegaly Extremities: Normal Inspection, Normal Range of Motion, Non-Tender, No Pedal Edema Neurological: Reports: Other (cannot assess) Psy/Mental Status: Reports: Other (cannot assess )
[2019-08-07 12:18] VITALS: BP 138/74; PULSE 79
== END 2019-08-07 13:35 | disposition other institution (70) | DRG 871 ==
LOC: DL.ED 12:54 → DL.MS 14:15 → DL.ED 15:35
PROVIDERS: ADMIT Hospitalist; ATTEND Hospitalist
DX: A41.9 Sepsis, unspecified organism (principal); J69.0 Pneumonitis due to inhalation of food and vomit; J96.01 Acute respiratory failure with hypoxia; I10 Essential (primary) hypertension; G47.30 Sleep apnea, unspecified; G40.909 Epilepsy, unspecified, not intractable, without status epilepticus; E66.9 Obesity, unspecified; F89 Unspecified disorder of psychological development; Z93.1 Gastrostomy status; F41.9 Anxiety disorder, unspecified; E03.9 Hypothyroidism, unspecified; Z86.718 Personal history of other venous thrombosis and embolism; F31.9 Bipolar disorder, unspecified; F91.9 Conduct disorder, unspecified; F79 Unspecified intellectual disabilities; H54.7 Unspecified visual loss; E78.00 Pure hypercholesterolemia, unspecified; K59.09 Other constipation; Z66 Do not resuscitate; E11.9 Type 2 diabetes mellitus without complications; Z20.828 Contact with and (suspected) exposure to other viral communicable diseases; Z79.899 Other long term (current) drug therapy; Z79.84 Long term (current) use of oral hypoglycemic drugs; Z86.711 Personal history of pulmonary embolism; Z88.1 Allergy status to other antibiotic agents; Z88.8 Allergy status to other drugs, medicaments and biological substances
CPT/HCPCS: 36415; 71045; 80053; 83605; 83880; 85025; 87040 ×2; 94640; 96361; 96374; 99283; 99285; J2765; J7030; 36600; 70450; 71260; 80048; 82803; 82962; 83735; 84100; 85027; 94760; 97162-GP; 97166-GO; A9270-GY; J1815-GY; J2270; J2543; J7050; J7620-GY; Q9967; U0002

== ENCOUNTER 2019-08-29 09:58 | Emergency (ER) | payer MEDICARE, MEDICAID ==
[2019-08-29 10:13] VITALS: BP 89/60; PULSE 90
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
[2019-08-29 10:54] LABS: ANION GAP 11.1 mEq/L (7-13); CHLORIDE,CL 99 mmol/L (98-107); SODIUM,NA 136 mmol/L (136-145)
[2019-08-29] MEDS ORDERED: LORazepam 2 MG/ML SDV IM ONE (11:24)
== END 2019-08-29 11:40 ==
LOC: DL.ED 09:58
DX: Z43.1 Encounter for attention to gastrostomy (principal); I10 Essential (primary) hypertension; R56.9 Unspecified convulsions; E03.9 Hypothyroidism, unspecified; E66.9 Obesity, unspecified; Z68.21 Body mass index [BMI] 21.0-21.9, adult; Z88.8 Allergy status to other drugs, medicaments and biological substances; Z88.1 Allergy status to other antibiotic agents; Z79.899 Other long term (current) drug therapy; Z79.84 Long term (current) use of oral hypoglycemic drugs; Z79.01 Long term (current) use of anticoagulants
CPT/HCPCS: 36415; 80053; 85025; 96372; 99284; J2060

== ENCOUNTER 2019-09-04 13:28 | Emergency (ER) | payer MEDICARE, MEDICAID ==
[2019-09-04 13:45] VITALS: BP 118/83; PULSE 93
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
== END 2019-09-04 14:07 | disposition home or self-care (01) ==
LOC: DL.ED 13:28
DX: Z43.1 Encounter for attention to gastrostomy (principal); I10 Essential (primary) hypertension; E78.00 Pure hypercholesterolemia, unspecified; E03.9 Hypothyroidism, unspecified; E66.9 Obesity, unspecified; R56.9 Unspecified convulsions; Z88.8 Allergy status to other drugs, medicaments and biological substances; Z79.899 Other long term (current) drug therapy; Z79.01 Long term (current) use of anticoagulants
CPT/HCPCS: 99283

== ENCOUNTER 2019-09-06 02:17 | Emergency (ER) | payer MEDICARE, MEDICAID ==
[2019-09-06 02:33] VITALS: BP 107/64; PULSE 94
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
== END 2019-09-06 03:33 ==
LOC: DL.ED 02:17
DX: Z43.1 Encounter for attention to gastrostomy (principal); E78.00 Pure hypercholesterolemia, unspecified; I10 Essential (primary) hypertension; R56.9 Unspecified convulsions; E03.9 Hypothyroidism, unspecified; F41.9 Anxiety disorder, unspecified; F20.9 Schizophrenia, unspecified; Z88.1 Allergy status to other antibiotic agents; Z88.8 Allergy status to other drugs, medicaments and biological substances; Z88.6 Allergy status to analgesic agent; Z79.01 Long term (current) use of anticoagulants; Z79.899 Other long term (current) drug therapy; Z86.711 Personal history of pulmonary embolism
CPT/HCPCS: 74018; 99282; 99283

== ENCOUNTER 2019-09-14 10:50 | Observation (INO) | payer MEDICARE, MEDICAID ==
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
[2019-09-14] MEDS ORDERED: Sodium Chloride 0.9% 1,000 ML IV ONE (10:57)
[2019-09-14] MEDS: Sodium Chloride 0.9% 10 ML Syringe FLUSH PRN ×2 (11:10→15:25)
[2019-09-14 11:37] LABS: ANION GAP 9.6 mEq/L (7-13); CHLORIDE,CL 104 mmol/L (98-107); SODIUM,NA 141 mmol/L (136-145)
--- NOTE | 2019-09-14 12:15 | CR ---
EXAMINATION: Chest 1V Frontal SEX: Male AGE: 58 years CLINICAL HISTORY: 58-year-old male with fever and history chronic aspiration. (Comparison films and July,) INTERPRETATION: (Upright AP portable chest, rotated) 1. No acute new lobar consolidation (infiltrate or atelectasis) compared to earlier films July 30, 2019. 2. Normal cardiac silhouette and pulmonary vascularity. No vascular congestion, cephalization of flow, alveolar edema or dependent pleural effusion. 3. No new lung mass or hilar lymphadenopathy. 4. No pneumothorax or pneumomediastinum. Midline tracheal bronchial airway unremarkable. CONCLUSION: No acute new cardiopulmonary abnormality.
[2019-09-14] MEDS ORDERED: LORazepam 0.5 MG Tab PO PRN (14:32)
[2019-09-14] MEDS ORDERED: Albuterol/Ipratropium 3.0-0.5 MG/3 ML Neb Soln NEB PRN (14:34)
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
[2019-09-14] MEDS ORDERED: Docusate Sodium 100 MG Cap PO PRN (14:43)
[2019-09-14] MEDS ORDERED: OLANZapine 5 MG Tab PO SCH (14:45)
[2019-09-14] MEDS: metroNIDAZOLE/Normal Saline 500 MG in Premix Bag 100 BAG IV SCH ×2 (15:23→21:57)
[2019-09-14] MEDS: VALPROIC ACID 250 MG/5 ML PO SCH ×2 (15:32→21:53)
[2019-09-14] MEDS: Ciprofloxacin in D5W 400 MG in Premix Bag 1 BAG IV SCH ×2 (16:46)
[2019-09-14] MEDS ORDERED: Sodium Chloride 0.9% 500 ML IV SCH (17:45)
[2019-09-14] MEDS: Albuterol/Ipratropium 3.0-0.5 MG/3 ML Neb Soln NEB SCH (18:08)
[2019-09-14] MEDS: Levothyroxine 100 MCG Tab GTUBE SCH (18:12)
[2019-09-14] MEDS: Insulin Lispro 100 Units/ML 3 ML Vial SUBCUT SCH ×2 (18:21→21:33)
[2019-09-14] MEDS ORDERED: atorvaSTATin 10 MG Tab **OWN MED PO SCH (21:00)
[2019-09-14] MEDS: OLANZapine 5 MG Tab PO SCH (21:51)
[2019-09-14] MEDS: ATORVASTATIN 10 MG GTUBE SCH (21:52)
[2019-09-14] MEDS: Acetaminophen 325 MG Tab PO PRN (22:23)
[2019-09-15] MEDS: Albuterol/Ipratropium 3.0-0.5 MG/3 ML Neb Soln NEB SCH ×5 (00:18→17:32)
[2019-09-15] MEDS: Ciprofloxacin in D5W 400 MG in Premix Bag 1 BAG IV SCH ×6 (00:19→21:11)
[2019-09-15] MEDS: Sodium Chloride 0.9% 10 ML Syringe FLUSH PRN (00:19)
[2019-09-15] MEDS: metroNIDAZOLE/Normal Saline 500 MG in Premix Bag 100 BAG IV SCH ×3 (05:36→22:14)
[2019-09-15 06:39] LABS: ANION GAP 11.9 mEq/L (7-13); CHLORIDE,CL 108 mmol/L (98-107); SODIUM,NA 144 mmol/L (136-145)
[2019-09-15] MEDS: Insulin Lispro 100 Units/ML 3 ML Vial SUBCUT SCH ×4 (09:04→21:15)
[2019-09-15] MEDS: Levothyroxine 100 MCG Tab GTUBE SCH (09:05)
[2019-09-15] MEDS: VALPROIC ACID 250 MG/5 ML PO SCH ×3 (09:05→21:19)
[2019-09-15] MEDS: OLANZapine 5 MG Tab PO SCH (09:06)
[2019-09-15] MEDS: RIVAROXABAN 10 MG PO SCH (09:07)
--- NOTE | 2019-09-15 10:27 | PCM.PN ---
- General Info Date of Service: 09/15/19 Subjective Update: no seizure since admission no significant fever has been eating well no clinical sign of aspiration BP was noted low last evening, IVFluid bolus was given Functional Status: Reports: Tolerating Diet - Review of Systems General: Denies: Fever - Patient Data Vitals - Most Recent: Last Vital Signs Temp 99.2 F 09/15/19 07:00 Pulse 83 09/15/19 07:10 Resp 18 09/15/19 07:00 BP 101/56 L 09/15/19 07:00 Pulse Ox 94 L 09/15/19 07:00 Weight - Most Recent: 145 lb 14.4 oz I&O - Last 24 Hours: Intake & Output 09/14/19 09/15/19 09/15/19 22:59 06:59 14:59 Intake Total 1090 Output Total 550 Balance 540 Lab Results Last 24 Hours: Laboratory Results - last 24 hr 09/14/19 09/14/19 09/14/19 Range/Units 11:09 11:09 11:09 WBC 7.7 (5.0-10.0) 10^3/uL RBC 3.89 L (4.6-6.2) 10^6/uL Hgb 11.9 L D (14.0-18.0) g/dL Hct 36.5 L (40.0-54.0) % MCV 93.8 D (80-100) fL MCH 30.6 (27.0-34.0) pg MCHC 32.6 L (33.0-35.0) g/dL Plt Count 372 D (150-450) 10^3/uL Neut % (Auto) 77.3 H (42.2-75.2) % Lymph % (Auto) 9.6 L (20.5-50.1) % [place] % (Auto) 11.9 H (2-8) % Eos % (Auto) 0.5 L (1.0-3.0) % Baso % (Auto) 0.7 (0.0-1.0) % Sodium 141 (136-145) mmol/L Potassium 4.6 (3.5-5.1) mmol/L Chloride 104 (98-107) mmol/L Carbon Dioxide 32 (21-32) mmol/L Anion Gap 9.6 (7-13) mEq/L BUN 10 (7-18) mg/dL Creatinine 0.83 (0.70-1.30) mg/dL Est Cr Clr Drug Dosing TNP Estimated GFR (MDRD) > 60 BUN/Creatinine Ratio 12.0 (No establ ref range) Glucose 89 (74-99) mg/dL POC Glucose (70-105) mg/dl Lactic Acid 1.8 (0.4-2.0) mmol/L Calcium 9.0 (8.5-10.1) mg/dL Total Bilirubin 0.7 (0.2-1.0) mg/dL AST 25 (15-37) U/L ALT 24 (16-63) U/L Alkaline Phosphatase 74 (46-116) U/L C-Reactive Protein 0.3 (0.0-0.9) mg/dL Total Protein 7.0 (6.4-8.2) g/dL Albumin 3.4 (3.4-5.0) g/dL Globulin 3.6 Albumin/Globulin Ratio 0.9 Amylase 47 (25-115) U/L Lipase 161 (73-393) U/L Urine Color (YELLOW) Urine Appearance (CLEAR) Urine pH (5.0-9.0) Ur Specific [place] (1.005-1.030) Urine Protein (NEGATIVE) Urine Glucose (UA) (NEGATIVE) Urine Ketones (NEGATIVE) Urine Occult Blood (NEGATIVE) Urine Nitrite (NEGATIVE) Urine Bilirubin (NEGATIVE) Urine Urobilinogen (0.2-1.0) mg/dL Ur Leukocyte Esterase (NEGATIVE) 09/14/19 09/14/19 09/14/19 Range/Units 11:12 16:58 20:31 WBC (5.0-10.0) 10^3/uL RBC (4.6-6.2) 10^6/uL Hgb (14.0-18.0) g/dL Hct (40.0-54.0) % MCV (80-100) fL MCH (27.0-34.0) pg MCHC (33.0-35.0) g/dL Plt Count (150-450) 10^3/uL Neut % (Auto) (42.2-75.2) % Lymph % (Auto) (20.5-50.1) % [place] % (Auto) (2-8) % Eos % (Auto) (1.0-3.0) % Baso % (Auto) (0.0-1.0) % Sodium (136-145) mmol/L Potassium (3.5-5.1) mmol/L Chloride (98-107) mmol/L Carbon Dioxide (21-32) mmol/L Anion Gap (7-13) mEq/L BUN (7-18) mg/dL Creatinine (0.70-1.30) mg/dL Est Cr Clr Drug Dosing Estimated GFR (MDRD) BUN/Creatinine Ratio (No establ ref range) Glucose (74-99) mg/dL POC Glucose 94 76 108 H (70-105) mg/dl Lactic Acid (0.4-2.0) mmol/L Calcium (8.5-10.1) mg/dL Total Bilirubin (0.2-1.0) mg/dL AST (15-37) U/L ALT (16-63) U/L Alkaline Phosphatase (46-116) U/L C-Reactive Protein (0.0-0.9) mg/dL Total Protein (6.4-8.2) g/dL Albumin (3.4-5.0) g/dL Globulin Albumin/Globulin Ratio Amylase (25-115) U/L Lipase (73-393) U/L Urine Color (YELLOW) Urine Appearance (CLEAR) Urine pH (5.0-9.0) Ur Specific [place] (1.005-1.030) Urine Protein (NEGATIVE) Urine Glucose (UA) (NEGATIVE) Urine Ketones (NEGATIVE) Urine Occult Blood (NEGATIVE) Urine Nitrite (NEGATIVE) Urine Bilirubin (NEGATIVE) Urine Urobilinogen (0.2-1.0) mg/dL Ur Leukocyte Esterase (NEGATIVE) 09/15/19 09/15/19 09/15/19 Range/Units 00:02 05:50 05:50 WBC 3.8 L (5.0-10.0) 10^3/uL RBC 3.50 L (4.6-6.2) 10^6/uL Hgb 10.6 L (14.0-18.0) g/dL Hct 33.3 L (40.0-54.0) % MCV 95.1 (80-100) fL MCH 30.3 (27.0-34.0) pg MCHC 31.8 L (33.0-35.0) g/dL Plt Count 298 (150-450) 10^3/uL Neut % (Auto) 51.2 (42.2-75.2) % Lymph % (Auto) 29.1 (20.5-50.1) % [place] % (Auto) 16.5 H (2-8) % Eos % (Auto) 1.6 (1.0-3.0) % Baso % (Auto) 1.6 H (0.0-1.0) % Sodium 144 (136-145) mmol/L Potassium 3.9 (3.5-5.1) mmol/L Chloride 108 H (98-107) mmol/L Carbon Dioxide 28 (21-32) mmol/L Anion Gap 11.9 (7-13) mEq/L BUN 7 (7-18) mg/dL Creatinine 0.66 L (0.70-1.30) mg/dL Est Cr Clr Drug Dosing 114.20 Estimated GFR (MDRD) > 60 BUN/Creatinine Ratio (No establ ref range) Glucose 83 (74-99) mg/dL POC Glucose (70-105) mg/dl Lactic Acid (0.4-2.0) mmol/L Calcium 8.3 L (8.5-10.1) mg/dL Total Bilirubin (0.2-1.0) mg/dL AST (15-37) U/L ALT (16-63) U/L Alkaline Phosphatase (46-116) U/L C-Reactive Protein (0.0-0.9) mg/dL Total Protein (6.4-8.2) g/dL Albumin (3.4-5.0) g/dL Globulin Albumin/Globulin Ratio Amylase (25-115) U/L Lipase (73-393) U/L Urine Color Yellow (YELLOW) Urine Appearance Clear (CLEAR) Urine pH 7.0 (5.0-9.0) Ur Specific [place] 1.020 (1.005-1.030) Urine Protein Negative (NEGATIVE) Urine Glucose (UA) Negative (NEGATIVE) Urine Ketones Negative (NEGATIVE) Urine Occult Blood Negative (NEGATIVE) Urine Nitrite Negative (NEGATIVE) Urine Bilirubin Negative (NEGATIVE) Urine Urobilinogen 0.2 (0.2-1.0) mg/dL Ur Leukocyte Esterase Negative (NEGATIVE) 09/15/19 Range/Units 07:51 WBC (5.0-10.0) 10^3/uL RBC (4.6-6.2) 10^6/uL Hgb (14.0-18.0) g/dL Hct (40.0-54.0) % MCV (80-100) fL MCH (27.0-34.0) pg MCHC (33.0-35.0) g/dL Plt Count (150-450) 10^3/uL Neut % (Auto) (42.2-75.2) % Lymph % (Auto) (20.5-50.1) % [place] % (Auto) (2-8) % Eos % (Auto) (1.0-3.0) % Baso % (Auto) (0.0-1.0) % Sodium (136-145) mmol/L Potassium (3.5-5.1) mmol/L Chloride (98-107) mmol/L Carbon Dioxide (21-32) mmol/L Anion Gap (7-13) mEq/L BUN (7-18) mg/dL Creatinine (0.70-1.30) mg/dL Est Cr Clr Drug Dosing Estimated GFR (MDRD) BUN/Creatinine Ratio (No establ ref range) Glucose (74-99) mg/dL POC Glucose 82 (70-105) mg/dl Lactic Acid (0.4-2.0) mmol/L Calcium (8.5-10.1) mg/dL Total Bilirubin (0.2-1.0) mg/dL AST (15-37) U/L ALT (16-63) U/L Alkaline Phosphatase (46-116) U/L C-Reactive Protein (0.0-0.9) mg/dL Total Protein (6.4-8.2) g/dL Albumin (3.4-5.0) g/dL Globulin Albumin/Globulin Ratio Amylase (25-115) U/L Lipase (73-393) U/L Urine Color (YELLOW) Urine Appearance (CLEAR) Urine pH (5.0-9.0) Ur Specific [place] (1.005-1.030) Urine Protein (NEGATIVE) Urine Glucose (UA) (NEGATIVE) Urine Ketones (NEGATIVE) Urine Occult Blood (NEGATIVE) Urine Nitrite (NEGATIVE) Urine Bilirubin (NEGATIVE) Urine Urobilinogen (0.2-1.0) mg/dL Ur Leukocyte Esterase (NEGATIVE) [place] Results Last 24 Hours: Microbiology 09/14/19 11:20 Anaerobic Blood Culture - Final Blood - Venous - Lab Draw Med Orders - Current: Current Medications Acetaminophen (Tylenol) 650 mg PO Q4H PRN PRN Reason: Pain (Mild 1-3)/fever Last Admin: 09/14/19 22:23 Dose: 650 mg Albuterol/Ipratropium (Duoneb 3.0-0.5 Mg/3 Ml) 3 ml NEB Q6HRRT [facility]END[facility] TO [facility] Last Admin: 09/15/19 07:10 Dose: 3 ml Albuterol/Ipratropium (Duoneb 3.0-0.5 Mg/3 Ml) 3 ml NEB Q2H PRN PRN Reason: sob Atorvastatin Calcium (Lipitor) 10 mg GTUBE BEDTIME [facility] Last Admin: 09/14/19 21:52 Dose: 10 mg Docusate Sodium (Colace) 100 mg PO BID PRN PRN Reason: Constipation Ciprofloxacin/Dextrose 400 mg/ (Premix) 200 mls @ 200 mls/hr IV Q12HR [facility] Last Admin: 09/15/19 09:05 Dose: 200 mls/hr Metronidazole 500 mg/ Premix 100 mls @ 100 mls/hr IV Q8HR [facility] Last Admin: 09/15/19 05:36 Dose: 100 mls/hr Insulin Human Lispro (Humalog) 0 unit SUBCUT WITHMEALSANDBED [facility] TO [facility]; Protocol Last Admin: 09/15/19 09:04 Dose: Not Given Levothyroxine Sodium (Synthroid) 100 mcg GTUBE DAILY [facility] Last Admin: 09/15/19 09:05 Dose: 100 mcg Lorazepam (Ativan) 0.5 mg PO Q8H PRN PRN Reason: Anxiety Olanzapine (Zyprexa) 5 mg PO BID [facility] Last Admin: 09/15/19 09:06 Dose: 5 mg Rivaroxaban (Xarelto) 20 mg PO DAILY [facility] Last Admin: 09/15/19 09:07 Dose: 20 mg Valproic Acid (Depakene) 250 mg PO TID [facility] Last Admin: 09/15/19 09:05 Dose: 250 mg Discontinued Medications Atorvastatin Calcium (Lipitor) 10 mg PO BEDTIME [facility] Sodium Chloride (Normal Saline) 1,000 mls @ 999 mls/hr IV .BOLUS ONE Stop: 09/14/19 11:57 Last Admin: 09/14/19 11:14 Dose: 999 mls/hr Sodium Chloride (Normal Saline) 500 mls @ 125 mls/hr IV ASDIRECTED DOE Stop: 09/14/19 21:46 Last Admin: 09/14/19 18:17 Dose: 125 mls/hr Olanzapine (Zyprexa) 2.5 mg PO .QHS [facility] Sodium Chloride (Saline Flush) 10 ml FLUSH ASDIRECTED PRN PRN Reason: Keep Vein Open Last Admin: 09/15/19 00:19 Dose: 10 ml - Exam General: Alert. No: Oriented Neck: Supple Lungs: Clear to Auscultation, Normal Respiratory Effort Cardiovascular: Regular Rate, Regular Rhythm GI/Abdominal Exam: Normal Bowel Sounds, Other (feeding tube site without redness ) Extremities: No Pedal Edema Skin: Warm, Dry Psy/Mental Status: Alert, Normal Affect, Normal Mood Sepsis Event Note - Evaluation Sepsis Screening Result: No Definite Risk - Focused Exam Vital Signs: Vital Signs Temp Pulse Resp BP BP Pulse Ox 09/15/19 07:10 83 09/15/19 07:00 99.2 F 88 18 101/56 L 94 L 09/14/19 22:44 98.8 F 87 18 100/61 95 Date Exam was Performed: 09/15/19 Time Exam was Performed: 10:27 - Problem List & Annotations (1) Chronic pulmonary embolism SNOMED Code(s): 898553139668255 Code(s): I27.82 - CHRONIC PULMONARY EMBOLISM Status: Acute Current Visit : Yes (2) Fever of unknown origin SNOMED Code(s): 0866242 Code(s): R50.9 - FEVER, UNSPECIFIED Status: Acute Current Visit: Yes (3) Seizure SNOMED Code(s): 43814962 Code(s): R56.9 - UNSPECIFIED CONVULSIONS Status: Acute Current Visit: Yes (4) Hypothyroidism SNOMED Code(s): 87804078 Code(s): E03.9 - HYPOTHYROIDISM, UNSPECIFIED Status: Chronic Current Visit: No (5) Seizure disorder SNOMED Code(s): 149402842 Code(s): G40.909 - EPILEPSY, UNSP, NOT INTRACTABLE, WITHOUT STATUS EPILEPTICUS Status: Chronic Current Visit: No - Problem List Review Problem List Initiated/Reviewed/Updated: Yes - My Orders Last 24 Hours: My Active Orders 09/14/19 14:00 metroNIDAZOLE/Normal Saline [Flagyl 500 MG in NS 100 ML] 500 mg Premix Bag 100 bag IV Q8HR 09/14/19 14:05 Glucose [Blood Glucose Check, Bedside] [RC] QIDACANDBED 09/14/19 14:06 Seizure Precautions [OM.PC] Routine 09/14/19 14:32 LORazepam [Ativan] 0.5 mg PO Q8H PRN 09/14/19 14:34 Albuterol/Ipratropium [DuoNeb 3.0-0.5 MG/3 ML] 3 ml NEB Q2H PRN 09/14/19 14:35 RT Aerosol Therapy [RC] ASDIRECTED 09/14/19 14:43 Oxygen Therapy [RC] PRN Up With Assistance [RC] ASDIRECTED VTE/DVT Education [RC] PER UNIT ROUTINE Vital Signs [RC] Q4H Acetaminophen [Tylenol] 650 mg PO Q4H PRN Docusate Sodium [Colace] 100 mg PO BID PRN Resuscitation Status Routine 09/14/19 14:44 Antiembolic Devices [RC] PER UNIT ROUTINE Antiembolic Hose [OM.PC] Per Unit Routine 09/14/19 15:00 Ciprofloxacin in D5W [Cipro in D5W 400 MG/200 ML] 400 mg Premix Bag 1 bag IV Q12HR Valproic Acid [Depakene] 250 mg PO TID 09/14/19 17:45 Levothyroxine [Synthroid] 100 mcg GTUBE DAILY 09/14/19 18:00 Albuterol/Ipratropium [DuoNeb 3.0-0.5 MG/3 ML] 3 ml NEB Q6HRRT Insulin Lispro [HumaLOG] See Protocol SUBCUT WITHMEALSANDBED 09/14/19 20:25 Communication Order [RC] Q6H 09/14/19 21:00 OLANZapine [ZyPREXA] 5 mg PO BID atorvaSTATin [Lipitor] 10 mg GTUBE BEDTIME 09/14/19 [employer] Dysphagia Diet [DIET] 09/15/19 08:00 Communication Order [RC] Q12HR 09/15/19 09:00 Rivaroxaban [Xarelto] 20 mg PO DAILY 09/16/19 05:15 BASIC METABOLIC PANEL,BMP [CHEM] AM CBC WITH AUTO DIFF [HEME] AM - Plan Plan:: 58-year-old gentleman with a history of mental retardation. The patient lives in a nursing home. Has a history of seizure disorder. The patient was recently hospitalized at [facility] for behavioral issues, psychiatry recommended changing the Keppra to Depakote. He also has a history of neuroleptic malignant syndrome, failure to thrive, dysphagia. During the recent hospitalization the patients feeding was upgraded to a pured diet with honey thickened liquids He has a history of mucus plugging, history of pulmonary embolism on anticoagulation. The patient went to her regular scheduled clinic appointment. Was noted to have a fever of 101, possible seizure episode. The patient was taken to the emergency room. No significant fever noted in the emergency room. Had no further seizure noted there. Met with the patient and the patients caregiver According to her caregiver the patient is at baseline now. He is not able to verbalize for communication. Patient is not able to give history or review of system. Fever No apparent pneumonia on chest x-ray but high risk for aspiration with recently started dysphagia diet blood culture pending urine appears clear Empirically treat with ciprofloxacin and Flagyl Seizure Might relate to fever For now continue Depakote Seizure precautions History of pulmonary embolism Continues xarelto Hypothyroidism Treat with Synthrod History of behavioral problems, agitation Continue Zyprexa, valproate, Ativan as needed, DVT prophylaxis with full dose anticoagulation with Xarelto code status is full code per nursing home staff
[2019-09-15] MEDS: Acetaminophen 325 MG Tab PO PRN (16:59)
[2019-09-15] MEDS: ATORVASTATIN 10 MG GTUBE SCH (21:17)
[2019-09-15] MEDS: OLANZAPINE 5 MG PO SCH (21:18)
[2019-09-16] MEDS: metroNIDAZOLE/Normal Saline 500 MG in Premix Bag 100 BAG IV SCH (05:49)
[2019-09-16 06:56] LABS: ANION GAP 11.8 mEq/L (7-13); CHLORIDE,CL 109 mmol/L (98-107); SODIUM,NA 146 mmol/L (136-145)
[2019-09-16 07:42] VITALS: BP 102/67; PULSE 78
[2019-09-16] MEDS: Insulin Lispro 100 Units/ML 3 ML Vial SUBCUT SCH (08:57)
[2019-09-16] MEDS: VALPROIC ACID 250 MG/5 ML PO SCH (08:58)
[2019-09-16] MEDS: Ciprofloxacin in D5W 400 MG in Premix Bag 1 BAG IV SCH ×2 (08:59)
[2019-09-16] MEDS: Levothyroxine 100 MCG Tab GTUBE SCH (08:59)
[2019-09-16] MEDS: OLANZAPINE 5 MG PO SCH (08:59)
--- NOTE | 2019-09-16 09:29 | PCM.DCSUM1 ---
Discharge Summary - Hospital Course Free Text/Narrative:: 58-year-old gentleman with a history of mental retardation. The patient lives in [place]. Has a history of seizure disorder. The patient was recently hospitalized at [facility] for behavioral issues, psychiatry recommended changing the Keppra to Depakote. He also has a history of neuroleptic malignant syndrome, failure to thrive, dysphagia. During the recent hospitalization the patients feeding was upgraded to a pured diet with honey thickened liquids He has a history of mucus plugging, history of pulmonary embolism on anticoagulation. on admission : The patient went to her regular scheduled clinic appointment. Was noted to have a fever of 101, possible seizure episode. The patient was taken to the emergency room. No significant fever noted in the emergency room. Had no further seizure noted there. Met with the patient and the patients caregiver According to her caregiver the patient is at baseline now. He is not able to verbalize for communication. Patient is not able to give history or review of system. hospital course: Fever No apparent pneumonia on chest x-ray fever resolved, wbc remained normal no aspiration noted by nurses with recently started dysphagia diet blood culture pending - neg for now urine appears clear Empirically treated with ciprofloxacin and Flagyl - stop further Abx fever might have related to seizure Seizure no further episode For now continue Depakote History of pulmonary embolism Continue xarelto Hypothyroidism Treat with Synthrod History of behavioral problems, agitation Continue Zyprexa, valproate, Ativan as needed, Diagnosis: Stroke: No - Discharge Data Discharge Date: 09/16/19 Discharge Disposition: Home, Self-Care 01 Condition: Good - Referral to Home Health Primary Care Physician: PCP Unobtainable - Discharge Diagnosis/Problem(s) (1) Chronic pulmonary embolism SNOMED Code(s): 565023287263861 ICD Code: I27.82 - CHRONIC PULMONARY EMBOLISM Status: Acute Current Visit : Yes (2) Fever of unknown origin SNOMED Code(s): 0646183 ICD Code: R50.9 - FEVER, UNSPECIFIED Status: Acute Current Visit: Yes (3) Seizure SNOMED Code(s): 01272378 ICD Code: R56.9 - UNSPECIFIED CONVULSIONS Status: Acute Current Visit: Yes (4) Hypothyroidism SNOMED Code(s): 86151026 ICD Code: E03.9 - HYPOTHYROIDISM, UNSPECIFIED Status: Chronic Current Visit: No (5) Seizure disorder SNOMED Code(s): 158367718 ICD Code: G40.909 - EPILEPSY, UNSP, NOT INTRACTABLE, WITHOUT STATUS EPILEPTICUS Status: Chronic Current Visit: No - Patient Instructions Diet: Heart Healthy Diet Activity: As Tolerated - Discharge Plan *PRESCRIPTION DRUG MONITORING PROGRAM REVIEWED*: Not Applicable *COPY OF PRESCRIPTION DRUG MONITORING REPORT IN PATIENT MARIBELL: Not Applicable Home Medications: Home Meds Levothyroxine [Synthroid] 100 mcg GTUBE DAILY 11/06/13 [History] atorvaSTATin [Lipitor] 10 mg GTUBE BEDTIME 07/17/19 [History] Rivaroxaban [Xarelto] 20 mg PO DAILY 08/01/19 [History] Albuterol/Ipratropium [DuoNeb 3.0-0.5 MG/3 ML] 1 unit INH BID PRN 09/06/19 [ History] LORazepam [Ativan] 0.5 mg PO TID PRN 09/06/19 [History] OLANZapine [Zyprexa] 5 mg PO BID 09/14/19 [History] Valproic Acid (As Sodium Salt) [Valproic Acid] 5 ml PO TID 09/14/19 [History] Oxygen Therapy Mode: Room Air Forms: ED Department Discharge Referrals: PCP,Unobtain [Primary Care Provider] - - Discharge Summary/Plan Comment DC Time >30 min.: No - General Info Date of Service: 09/16/19 Subjective Update: no seizure since admission no fever has been eating well no clinical sign of aspiration - Review of Systems General: Denies: Fever Pulmonary: Denies: Shortness of Breath Cardiovascular: Denies: Chest Pain Gastrointestinal: Denies: Abdominal Pain Neurological: Reports: Confusion Systems Review Comment: limited due to mental retardation - Patient Data Vitals - Most Recent: Last Vital Signs Temp 99.9 F 09/16/19 07:40 Pulse 78 09/16/19 07:40 Resp 18 09/16/19 07:40 BP 102/67 09/16/19 07:40 Pulse Ox 93 L 09/16/19 07:40 Weight - Most Recent: 143 lb 6.4 oz I&O - Last 24 hours: Intake & Output 09/15/19 09/16/19 09/16/19 22:59 06:59 14:59 Intake Total 450 390 Balance 450 390 Lab Results - Last 24 hrs: Laboratory Results - last 24 hr 09/15/19 09/15/19 09/15/19 Range/Units 12:05 16:36 20:52 WBC (5.0-10.0) 10^3/uL RBC (4.6-6.2) 10^6/uL Hgb (14.0-18.0) g/dL Hct (40.0-54.0) % MCV (80-100) fL MCH (27.0-34.0) pg MCHC (33.0-35.0) g/dL Plt Count (150-450) 10^3/uL Neut % (Auto) (42.2-75.2) % Lymph % (Auto) (20.5-50.1) % [place] % (Auto) (2-8) % Eos % (Auto) (1.0-3.0) % Baso % (Auto) (0.0-1.0) % Sodium (136-145) mmol/L Potassium (3.5-5.1) mmol/L Chloride (98-107) mmol/L Carbon Dioxide (21-32) mmol/L Anion Gap (7-13) mEq/L BUN (7-18) mg/dL Creatinine (0.70-1.30) mg/dL Est Cr Clr Drug Dosing mL/min Estimated GFR (MDRD) Glucose (74-99) mg/dL POC Glucose 144 H 143 H 93 (70-105) mg/dl Calcium (8.5-10.1) mg/dL 09/16/19 09/16/19 09/16/19 Range/Units 06:30 06:30 07:54 WBC 3.0 L (5.0-10.0) 10^3/uL RBC 3.71 L (4.6-6.2) 10^6/uL Hgb 11.4 L (14.0-18.0) g/dL Hct 35.7 L (40.0-54.0) % MCV 96.2 (80-100) fL MCH 30.7 (27.0-34.0) pg MCHC 31.9 L (33.0-35.0) g/dL Plt Count 296 (150-450) 10^3/uL Neut % (Auto) 48.0 (42.2-75.2) % Lymph % (Auto) 30.4 (20.5-50.1) % [place] % (Auto) 17.6 H (2-8) % Eos % (Auto) 2.0 (1.0-3.0) % Baso % (Auto) 2.0 H (0.0-1.0) % Sodium 146 H (136-145) mmol/L Potassium 3.8 (3.5-5.1) mmol/L Chloride 109 H (98-107) mmol/L Carbon Dioxide 29 (21-32) mmol/L Anion Gap 11.8 (7-13) mEq/L BUN 7 (7-18) mg/dL Creatinine 0.73 (0.70-1.30) mg/dL Est Cr Clr Drug Dosing 101.48 mL/min Estimated GFR (MDRD) > 60 Glucose 93 (74-99) mg/dL POC Glucose 85 (70-105) mg/dl Calcium 8.6 (8.5-10.1) mg/dL NIDA Results - Last 24 hrs: Microbiology 09/14/19 11:20 Aerobic Blood Culture - Preliminary Blood - Venous - Lab Draw NO GROWTH AFTER 1 DAY Anaerobic Blood Culture - Final 09/14/19 11:09 Aerobic Blood Culture - Preliminary Blood - Venous NO GROWTH AFTER 1 DAY Anaerobic Blood Culture - Preliminary NO GROWTH AFTER 1 DAY Med Orders - Current: Current Medications Acetaminophen (Tylenol) 650 mg PO Q4H PRN PRN Reason: Pain (Mild 1-3)/fever Last Admin: 09/15/19 16:59 Dose: 650 mg Albuterol/Ipratropium (Duoneb 3.0-0.5 Mg/3 Ml) 3 ml NEB Q2H PRN PRN Reason: sob Atorvastatin Calcium (Lipitor) 10 mg GTUBE BEDTIME [facility] Last Admin: 09/15/19 21:17 Dose: 10 mg Docusate Sodium (Colace) 100 mg PO BID PRN PRN Reason: Constipation Ciprofloxacin/Dextrose 400 mg/ (Premix) 200 mls @ 200 mls/hr IV Q12HR [facility] Last Admin: 09/16/19 08:59 Dose: 200 mls/hr Metronidazole 500 mg/ Premix 100 mls @ 100 mls/hr IV Q8HR [facility] Last Admin: 09/16/19 05:49 Dose: 100 mls/hr Insulin Human Lispro (Humalog) 0 unit SUBCUT WITHMEALSANDBED [facility]; Protocol Last Admin: 09/16/19 08:57 Dose: Not Given Levothyroxine Sodium (Synthroid) 100 mcg GTUBE DAILY [facility] Last Admin: 09/16/19 08:59 Dose: 100 mcg Lorazepam (Ativan) 0.5 mg PO Q8H PRN PRN Reason: Anxiety Last Admin: 09/15/19 23:46 Dose: 0.5 mg Olanzapine (Zyprexa) 5 mg PO BID [facility] Last Admin: 09/16/19 08:59 Dose: 5 mg Rivaroxaban (Xarelto) 20 mg PO DAILY [facility] Last Admin: 09/15/19 09:07 Dose: 20 mg Valproic Acid (Depakene) 250 mg PO TID [facility] Last Admin: 09/16/19 08:58 Dose: 250 mg Discontinued Medications Albuterol/Ipratropium (Duoneb 3.0-0.5 Mg/3 Ml) 3 ml NEB Q6HRRT [facility] Last Admin: 09/15/19 17:32 Dose: 3 ml Atorvastatin Calcium (Lipitor) 10 mg PO BEDTIME [facility] Sodium Chloride (Normal Saline) 1,000 mls @ 999 mls/hr IV .BOLUS ONE Stop: 09/14/19 11:57 Last Admin: 09/14/19 11:14 Dose: 999 mls/hr Sodium Chloride (Normal Saline) 500 mls @ 125 mls/hr IV ASDIRECTED [facility] Stop: 09/14/19 21:46 Last Admin: 09/14/19 18:17 Dose: 125 mls/hr Olanzapine (Zyprexa) 2.5 mg PO .QHS [facility] Olanzapine (Zyprexa) 5 mg PO BID [facility] Last Admin: 09/15/19 09:06 Dose: 5 mg Sodium Chloride (Saline Flush) 10 ml FLUSH ASDIRECTED PRN PRN Reason: Keep Vein Open Last Admin: 09/15/19 00:19 Dose: 10 ml - Exam General: Reports: Alert. Denies: Oriented Lungs: Reports: Clear to Auscultation, Normal Respiratory Effort Cardiovascular: Reports: Regular Rate, Regular Rhythm GI/Abdominal Exam: Normal Bowel Sounds, Soft, Non-Tender Extremities: No Pedal Edema Skin: Reports: Warm, Dry Neurological: Reports: No New Focal Deficit
[2019-09-16] MEDS: RIVAROXABAN 10 MG PO SCH (11:33)
== END 2019-09-16 11:10 | disposition home or self-care (01) ==
LOC: DL.ED 10:50 → DL.MS 13:00
PROVIDERS: ADMIT Internal Medicine; ATTEND Internal Medicine
DX: I27.82 Chronic pulmonary embolism (principal); R50.9 Fever, unspecified; G40.909 Epilepsy, unspecified, not intractable, without status epilepticus; E78.00 Pure hypercholesterolemia, unspecified; I10 Essential (primary) hypertension; F41.9 Anxiety disorder, unspecified; R62.7 Adult failure to thrive; G21.0 Malignant neuroleptic syndrome; E03.9 Hypothyroidism, unspecified; Z79.899 Other long term (current) drug therapy; Z79.01 Long term (current) use of anticoagulants; Z88.8 Allergy status to other drugs, medicaments and biological substances; Z88.1 Allergy status to other antibiotic agents; Z79.890 Hormone replacement therapy; Z68.1 Body mass index [BMI] 19.9 or less, adult
CPT/HCPCS: 36415; 71045; 80048; 80053; 81003; 82150; 82962; 83605; 83690; 85025; 86140; 87040; 94640; 96360; 99285; A9270; J0744; J3490; J7030; J7040; 96361; 96365; 96366; 96367; 99284; G0378; J7620-GY

== ENCOUNTER 2019-10-20 14:16 | Emergency (ER) | payer MEDICARE, MEDICAID ==
[2019-10-20 14:31] VITALS: BP 107/68; PULSE 94
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
[2019-10-20 15:51] LABS: ANION GAP 11.9 mEq/L (7-13); CHLORIDE,CL 105 mmol/L (98-107); SODIUM,NA 144 mmol/L (136-145)
[2019-10-20 16:17] LABS: ACETAMINOPHEN 0 ug/mL (10-30 (Therapeutic))
== END 2019-10-20 17:37 | disposition home or self-care (01) ==
LOC: DL.ED 14:16
DX: F91.1 Conduct disorder, childhood-onset type (principal); Z72.820 Sleep deprivation; S80.812A Abrasion, left lower leg, initial encounter; S80.811A Abrasion, right lower leg, initial encounter; I10 Essential (primary) hypertension; E78.00 Pure hypercholesterolemia, unspecified; E03.9 Hypothyroidism, unspecified; F41.9 Anxiety disorder, unspecified; F20.9 Schizophrenia, unspecified; Z88.1 Allergy status to other antibiotic agents; Z88.6 Allergy status to analgesic agent; Z88.8 Allergy status to other drugs, medicaments and biological substances; Z79.899 Other long term (current) drug therapy; X58.XXXA Exposure to other specified factors, initial encounter
CPT/HCPCS: 36415; 80053; 80305-QW; 80307; 81003; 82140; 83605; 83735; 85025; 99284; 99285

== ENCOUNTER 2019-11-21 11:21 | Emergency (ER) | payer MEDICARE, MEDICAID ==
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
[2019-11-21 11:30] VITALS: BP 99/71; PULSE 96
[2019-11-21] MEDS ORDERED: LORazepam 1 MG Tab PO ONE (11:57)
[2019-11-21 12:08] LABS: PTT,PARTIAL THROMBOPLSTIN TIME 28.3 SEC (22.0-34.0)
[2019-11-21 12:12] LABS: ACETAMINOPHEN 0 ug/mL (10-30 (Therapeutic)); ANION GAP 8.9 mEq/L (7-13); CHLORIDE,CL 104 mmol/L (98-107); SODIUM,NA 141 mmol/L (136-145)
== END 2019-11-21 13:00 | disposition home or self-care (01) ==
LOC: DL.ED 11:21
DX: F20.9 Schizophrenia, unspecified (principal); I10 Essential (primary) hypertension; E78.00 Pure hypercholesterolemia, unspecified; E03.9 Hypothyroidism, unspecified; F41.9 Anxiety disorder, unspecified; Z88.1 Allergy status to other antibiotic agents; Z88.8 Allergy status to other drugs, medicaments and biological substances; Z79.899 Other long term (current) drug therapy
CPT/HCPCS: 36415; 80053; 80164; 80307; 83735; 84443; 85025; 85610; 85730; 99284; A9270

== ENCOUNTER 2019-11-22 12:15 | Emergency (ER) | payer MEDICARE, MEDICAID ==
[2019-11-22 12:15] VITALS: BP 103/77; PULSE 78
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
[2019-11-22 13:56] LABS: ANION GAP 9.2 mEq/L (7-13); CHLORIDE,CL 103 mmol/L (98-107); SODIUM,NA 141 mmol/L (136-145)
[2019-11-22 13:59] LABS: ACETAMINOPHEN 0 ug/mL (10-30 (Therapeutic))
[2019-11-22] MEDS ORDERED: LORazepam 0.5 MG Tab PO ONE ×2 (14:03→16:49)
== END 2019-11-22 17:10 ==
LOC: DL.ED 12:15
DX: F91.1 Conduct disorder, childhood-onset type (principal); E78.00 Pure hypercholesterolemia, unspecified; I10 Essential (primary) hypertension; R56.9 Unspecified convulsions; E03.9 Hypothyroidism, unspecified; F20.9 Schizophrenia, unspecified; Z86.711 Personal history of pulmonary embolism; Z20.828 Contact with and (suspected) exposure to other viral communicable diseases; Z88.1 Allergy status to other antibiotic agents; Z88.8 Allergy status to other drugs, medicaments and biological substances; Z88.6 Allergy status to analgesic agent; Z79.01 Long term (current) use of anticoagulants; Z79.899 Other long term (current) drug therapy
CPT/HCPCS: 36415; 80053; 80305-QW; 80307; 81003; 82140; 83690; 85025; 99284; 99285; A9270-GY; U0002

== ENCOUNTER 2020-05-22 10:05 | Emergency (ER) | payer MEDICARE, MEDICAID ==
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
[2020-05-22 10:18] VITALS: BP 115/78
[2020-05-22] MEDS ORDERED: Sodium Chloride 0.9% 10 ML Syringe FLUSH PRN (10:19)
[2020-05-22] MEDS ORDERED: Albuterol/Ipratropium 3.0-0.5 MG/3 ML Neb Soln NEB ONE (10:45)
[2020-05-22 11:00] VITALS: PULSE 101
[2020-05-22 11:20] LABS: ANION GAP 15.1 mEq/L (7-13); CHLORIDE,CL 105 mmol/L (98-107); SODIUM,NA 142 mmol/L (136-145)
[2020-05-22] MEDS ORDERED: Levofloxacin/Dextrose 5%-Water 750 MG in Premix Bag 1 BAG IV ONE (11:30)
[2020-05-22] MEDS ORDERED: Sodium Chloride 0.9% 500 ML IV SCH (11:30)
[2020-05-22 12:16] LABS: CORONAVIRUS COVID-19 NAA NEGATIVE (NEGATIVE)
--- NOTE | 2020-05-22 12:34 | CR ---
EXAMINATION: Chest 1V Frontal SEX: Male AGE: 59 years CLINICAL HISTORY: 59-year-old male emergency department with cough, fever, and rhonchi. Interpretation: (Upright AP portable chest) No acute new cardiopulmonary abnormality (comparison 14 September 2019). 1. Chronic poor inspiratory effort and patient rotation but normal cardiac silhouette (size, axis and configuration). No pulmonary vascular congestion, cephalization of flow, alveolar edema or effusion. 2. No new lung mass, hilar lymphadenopathy or focal lobar consolidation (infiltrate/atelectasis). 3. No peripheral "groundglass" interstitial infiltrates. 4. No pneumothorax or pneumomediastinum. Midline tracheal bronchial airway unremarkable. 5. Old healed fracture deformity mid right clavicle.
== END 2020-05-22 14:15 | disposition home or self-care (01) ==
LOC: DL.ED 10:05
DX: R05 Cough (principal); R62.7 Adult failure to thrive; E78.00 Pure hypercholesterolemia, unspecified; I10 Essential (primary) hypertension; E03.9 Hypothyroidism, unspecified; Z88.1 Allergy status to other antibiotic agents; Z88.8 Allergy status to other drugs, medicaments and biological substances; Z88.6 Allergy status to analgesic agent; Z79.01 Long term (current) use of anticoagulants; Z79.899 Other long term (current) drug therapy; Z86.711 Personal history of pulmonary embolism; Z20.822 Contact with and (suspected) exposure to COVID-19
CPT/HCPCS: 0240U; 36415; 71045; 80053; 81001; 83605; 83880; 85025; 85379; 86140; 87040; 87081; 87430; 94640; 96365; 99284; J1956; J7040; 99283; J7620-GY

== ENCOUNTER 2020-06-18 10:24 | Inpatient (IN) | payer MEDICARE, MEDICAID ==
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
[2020-06-18] MEDS ORDERED: Sodium Chloride 0.9% 10 ML Syringe FLUSH PRN (11:33)
[2020-06-18] MEDS ORDERED: Sodium Chloride 0.9% 500 ML IV SCH (11:45)
--- NOTE | 2020-06-18 12:27 | CR ---
EXAMINATION: Chest 1V Frontal SEX: Male AGE: 59 years CLINICAL HISTORY: 59-year-old male with crackles and rhonchi. "No acute abnormality" reported 22 May 2020. Comparison 14 September 2019. INTERPRETATION: Chronic rotation and generally poor inspiration. 1. Chronic elevation right hemidiaphragm. Platelike atelectasis RLL. 2. No sign of heart failure lung mass or other focal lobar consolidation (infiltrate/atelectasis). 3. No peripheral "groundglass" interstitial lung densities. 4. No pneumothorax or pneumomediastinum. Conclusion: Right lower lobe atelectasis. No signs of heart failure, lung mass or lobar pneumonia.
[2020-06-18 12:52] LABS: ANION GAP 10.1 mEq/L (7-13); CHLORIDE,CL 108 mmol/L (98-107); SODIUM,NA 146 mmol/L (136-145)
--- NOTE | 2020-06-18 14:17 | CT ---
EXAMINATION: Pelvis wo Cont SEX: Male AGE: 59 years CLINICAL HISTORY: 59-year-old male immobile [facility] patient with deep ULCERS B/L heel and sacrum. Scan technique: Volume acquisition of data unenhanced CT scan sacrum, pelvis, hips (buttocks) obtained with the patient lying supine on the Siemens multislice scanner [facility]. All data archived in the PACS system for storage, reformatting axial/sagittal/coronal planes and study (bone/soft tissue windows). INTERPRETATION: 1. Orthopedic screws x2 anchored in the left hemipelvis behind the ipsilateral bony acetabulum. 2. *Cutaneous thickening with some increased subcutaneous density buttocks, bilaterally (axial slices #[id number]) suggesting chronic cellulitis. No subcutaneous air, abscess or fistulization. 3. No underlying fractures of the bony pelvis or signs of sacral osteomyelitis. 4. Symmetric spacing normal-appearing SI and hip joints. Normal proximal femurs. 5. Unenhanced pelvic viscera (prostate, bladder and sigmoid colon) and musculature unremarkable.
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
[2020-06-18 14:43] LABS: CORONAVIRUS COVID-19 NAA NEGATIVE (NEGATIVE)
[2020-06-18] MEDS ORDERED: Acetaminophen 325 MG Tab PO PRN (15:29)
[2020-06-18] MEDS ORDERED: Polyethylene Glycol 3350 Powder 17 GM Packet PO PRN (16:34)
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
[2020-06-18] MEDS ORDERED: ClonazePAM 0.5 MG Tab PO SCH (21:00)
[2020-06-18] MEDS: lamoTRIgine 100 MG Tab PO SCH (21:10)
[2020-06-18] MEDS: Valproic Acid 250 MG/5 ML Soln 5 ML UD Cup PO SCH (21:11)
[2020-06-18] MEDS ORDERED: ClonazePAM 0.5 MG Tab PO ONE (22:28)
[2020-06-19] MEDS: Levothyroxine 100 MCG Tab PO SCH (05:57)
[2020-06-19] MEDS ORDERED: ClonazePAM 0.5 MG Tab PO SCH (06:00)
[2020-06-19] MEDS: Valproic Acid 250 MG/5 ML Soln 5 ML UD Cup PO SCH ×3 (09:43→20:19)
[2020-06-19] MEDS: Rivaroxaban 10 MG Tab PO SCH (09:43)
[2020-06-19] MEDS: OLANZapine 5 MG Tab PO SCH (09:43)
[2020-06-19] MEDS: Metoprolol Succinate 25 MG Tab.ER PO SCH (09:44)
[2020-06-19] MEDS: lamoTRIgine 100 MG Tab PO SCH ×2 (09:44→20:17)
[2020-06-19] MEDS: ClonazePAM 0.5 MG Tab PO SCH ×2 (09:45→20:17)
--- NOTE | 2020-06-19 15:16 | PCM.PN ---
- General Info Date of Service: 06/19/20 Admission Dx/Problem (Free Text): More alert. Cooperative. Could not void in am - bladder scan showed 600 cc - pt did eventually have an incontinent void. RN instructed to next time bladder scan immediately post void. - Patient Data Vitals - Most Recent: Last Vital Signs Temp 98.6 F 06/19/20 11:29 Pulse 76 06/19/20 11:29 Resp 16 06/19/20 11:29 BP 100/61 06/19/20 11:29 Pulse Ox 96 06/19/20 11:29 Weight - Most Recent: 161 lb 12.8 oz I&O - Last 24 Hours: Intake & Output 06/19/20 06/19/20 06/19/20 06:59 14:59 22:59 Intake Total 510 240 Balance 510 240 Simeon Results Last 24 Hours: Microbiology 06/18/20 12:11 Aerobic Blood Culture - Preliminary Blood - Venous - Lab Draw NO GROWTH AFTER 1 DAY Anaerobic Blood Culture - Final 06/18/20 11:56 Aerobic Blood Culture - Preliminary Blood - Venous - Iv Start NO GROWTH AFTER 1 DAY Anaerobic Blood Culture - Final - Exam Quality Assessment: No: Supplemental Oxygen General: Alert, Cooperative, No Acute Distress HEENT: Pupils Equal Neck: Supple Lungs: Clear to Auscultation, Normal Respiratory Effort Cardiovascular: Regular Rate, Regular Rhythm, No Murmurs GI/Abdominal Exam: Normal Bowel Sounds, Soft, Non-Tender, No Distention Extremities: No Pedal Edema Skin: Warm Wound/Incisions: Other (b/l heal stage 4 and lateral malleoli unstageable decubiti - see photos in hard chart) Neurological: Other (slurred speech) Psy/Mental Status: Alert - Patient Data Result Diagrams: 06/18/20 12:02 06/18/20 12:11 Simeon Results Last 24 hrs: Microbiology 06/18/20 12:11 Aerobic Blood Culture - Preliminary Blood - Venous - Lab Draw NO GROWTH AFTER 1 DAY Anaerobic Blood Culture - Final 06/18/20 11:56 Aerobic Blood Culture - Preliminary Blood - Venous - Iv Start NO GROWTH AFTER 1 DAY Anaerobic Blood Culture - Final Sepsis Event Note - Evaluation Sepsis Screening Result: No Definite Risk - Focused Exam Vital Signs: Vital Signs Temp Pulse Pulse Resp BP BP BP 06/19/20 11:29 98.6 F 76 16 100/61 06/19/20 09:44 80 101/49 L 06/19/20 07:27 98.1 F 67 17 91/60 88/63 L 06/19/20 03:45 99.0 F 58 L 18 102/65 Pulse Ox 06/19/20 11:29 96 06/19/20 09:44 06/19/20 07:27 95 06/19/20 03:45 95 - Problem List Review Problem List Initiated/Reviewed/Updated: No - My Orders Last 24 Hours: My Active Orders 06/18/20 15:08 Patient Status [ADT] Routine 06/18/20 15:29 Patient Status [ADT] Routine Oxygen Therapy [RC] .PRN Up to Chair [RC] ASDIRECTED VTE/DVT Education [RC] PER UNIT ROUTINE Vital Signs [RC] 00,04,08,12,16,20 Consult to Nutrition Helper [CONS] Routine Acetaminophen [TylenoL] 650 mg PO Q4H PRN Resuscitation Status Routine 06/18/20 16:34 polyethylene glycoL 3350 [MiraLAX] 17 gm PO BID PRN 06/18/20 Dinner Pureed Diet [DIET] 06/18/20 21:00 Valproic Acid [Depakene] 250 mg PO TID lamoTRIgine 100 mg PO BID 06/19/20 06:00 Levothyroxine [Synthroid] 100 mcg PO ACBREAKFAST 06/19/20 08:56 Dietary Supplements [RC] BIDMEALS 06/19/20 09:00 ClonazePAM [KlonoPIN] 1 mg PO BID Metoprolol Succinate [Toprol XL] 25 mg PO DAILY OLANZapine [ZyPREXA] 5 mg PO DAILY Rivaroxaban [Xarelto] 20 mg PO DAILY 06/19/20 10:26 Communication Order [RC] PRN 06/19/20 21:00 cloZAPine 250 mg PO BEDTIME - Plan Plan:: #b/l heel and lateral malleolar stage 4 pressure ulcers - no evident cellulitis - pt follows w/ community wound care provider ELEONORA Duque - last seen on 06/10 and had sharp debridement - CT w/o osteo however this is not the most sensitive test - pt will require frequent wound re-evaluation and debridement - will defer need/timing for MRI to wound care provider - he will require an air mattress and offloading - will place heel protectors here - his [place] [facility] is grossly under-equipped to handle this per my discussion w/ Dr El - CM working on alternative nursing home placement #psych - the underlying dx is unclear to me - it is apparent that pt's psych regimen is highly sedating - per external medical record this is being actively tapered - continue same for now #hx DVT / HT / seizure d/o - c/w home meds PPX - on Xarelto Full code
[2020-06-19] MEDS: CLOZAPINE 100 MG PO SCH (20:17)
[2020-06-20] MEDS: Levothyroxine 100 MCG Tab PO SCH (06:07)
[2020-06-20 06:39] LABS: ANION GAP 13.9 mEq/L (7-13); CHLORIDE,CL 105 mmol/L (98-107); SODIUM,NA 143 mmol/L (136-145)
[2020-06-20] MEDS: OLANZapine 5 MG Tab PO SCH (09:12)
[2020-06-20] MEDS: Rivaroxaban 10 MG Tab PO SCH (09:12)
[2020-06-20] MEDS: lamoTRIgine 100 MG Tab PO SCH ×2 (09:12→20:51)
[2020-06-20] MEDS: Valproic Acid 250 MG/5 ML Soln 5 ML UD Cup PO SCH ×3 (09:13→20:51)
[2020-06-20] MEDS: Metoprolol Succinate 25 MG Tab.ER PO SCH (09:13)
[2020-06-20] MEDS: ClonazePAM 0.5 MG Tab PO SCH ×2 (09:13→20:51)
--- NOTE | 2020-06-20 14:45 | PCM.PN ---
- General Info Date of Service: 06/20/20 Admission Dx/Problem (Free Text): Pt was converted to in-patient last night after blood cultures called in positive for GPCC. Pt remains afebrile and clinically unchanged. - Patient Data Vitals - Most Recent: Last Vital Signs Temp 97.6 F 06/20/20 08:00 Pulse 74 06/20/20 09:13 Resp 20 06/20/20 08:00 BP 106/66 06/20/20 09:13 Pulse Ox 95 06/20/20 08:00 Weight - Most Recent: 161 lb 12.8 oz I&O - Last 24 Hours: Intake & Output 06/19/20 06/20/20 06/20/20 22:59 06:59 14:59 Intake Total 3245 425 440 Balance 3245 425 440 Lab Results Last 24 Hours: Laboratory Results - last 24 hr 06/20/20 06/20/20 Range/Units 06:00 06:00 WBC 11.0 H (5.0-10.0) 10^3/uL RBC 4.64 (4.6-6.2) 10^6/uL Hgb 14.7 (14.0-18.0) g/dL Hct 43.0 (40.0-54.0) % MCV 92.7 (80-100) fL MCH 31.7 (27.0-34.0) pg MCHC 34.2 (33.0-35.0) g/dL Plt Count 198 (150-450) 10^3/uL Sodium 143 (136-145) mmol/L Potassium 3.9 (3.5-5.1) mmol/L Chloride 105 (98-107) mmol/L Carbon Dioxide 28 (21-32) mmol/L Anion Gap 13.9 H (7-13) mEq/L BUN 14 (7-18) mg/dL Creatinine 0.76 (0.70-1.30) mg/dL Est Cr Clr Drug Dosing 108.64 mL/min Estimated GFR (MDRD) > 60 Glucose 106 H (74-99) mg/dL Calcium 8.4 L (8.5-10.1) mg/dL Simeon Results Last 24 Hours: Microbiology 06/18/20 11:56 Aerobic Blood Culture - Preliminary Blood - Venous - Iv Start NO GROWTH AFTER 2 DAYS Anaerobic Blood Culture - Final 06/19/20 19:09 Anaerobic Blood Culture - Final Blood - Venous - Iv Start 06/18/20 12:11 Aerobic Blood Culture - Preliminary Blood - Venous - Lab Draw Anaerobic Blood Culture - Final - Exam Quality Assessment: No: Supplemental Oxygen General: Alert, No Acute Distress, Other (somnolent) HEENT: Pupils Equal, Pupils Reactive Neck: Supple Lungs: Clear to Auscultation, Normal Respiratory Effort Cardiovascular: Regular Rate, Regular Rhythm, No Murmurs GI/Abdominal Exam: Normal Bowel Sounds, Soft, Non-Tender, No Distention Back Exam: Normal Inspection Extremities: No Pedal Edema Wound/Incisions: Other (unchanged unstageable b/l heel and lateral malleolar decubiti) Neurological: No New Focal Deficit Psy/Mental Status: Depressed (affect) - Patient Data Lab Results Last 24 hrs: Laboratory Results - last 24 hr 06/20/20 06/20/20 Range/Units 06:00 06:00 WBC 11.0 H (5.0-10.0) 10^3/uL RBC 4.64 (4.6-6.2) 10^6/uL Hgb 14.7 (14.0-18.0) g/dL Hct 43.0 (40.0-54.0) % MCV 92.7 (80-100) fL MCH 31.7 (27.0-34.0) pg MCHC 34.2 (33.0-35.0) g/dL Plt Count 198 (150-450) 10^3/uL Sodium 143 (136-145) mmol/L Potassium 3.9 (3.5-5.1) mmol/L Chloride 105 (98-107) mmol/L Carbon Dioxide 28 (21-32) mmol/L Anion Gap 13.9 H (7-13) mEq/L BUN 14 (7-18) mg/dL Creatinine 0.76 (0.70-1.30) mg/dL Est Cr Clr Drug Dosing 108.64 mL/min Estimated GFR (MDRD) > 60 Glucose 106 H (74-99) mg/dL Calcium 8.4 L (8.5-10.1) mg/dL Result Diagrams: 06/20/20 06:00 06/20/20 06:00 Simeon Results Last 24 hrs: Microbiology 06/18/20 11:56 Aerobic Blood Culture - Preliminary Blood - Venous - Iv Start NO GROWTH AFTER 2 DAYS Anaerobic Blood Culture - Final 06/19/20 19:09 Anaerobic Blood Culture - Final Blood - Venous - Iv Start 06/18/20 12:11 Aerobic Blood Culture - Preliminary Blood - Venous - Lab Draw Anaerobic Blood Culture - Final Sepsis Event Note - Evaluation Sepsis Screening Result: No Definite Risk - Focused Exam Vital Signs: Vital Signs Temp Pulse Pulse Resp BP BP Pulse Ox 06/20/20 09:13 74 106/66 06/20/20 08:00 97.6 F 74 20 106/66 95 06/20/20 03:27 97.8 F 73 16 91/65 94 L - Problem List Review Problem List Initiated/Reviewed/Updated: No - My Orders Last 24 Hours: My Active Orders 06/19/20 18:41 Blood Culture x2 Reflex Set [OM.PC] Stat 06/19/20 18:43 Admission Status [Patient Status] [ADT] Routine 06/19/20 18:45 Vancomycin 1 gm Sodium Chloride 0.9% [Normal Saline (AdvBag)] 250 ml IV Q12HR 06/19/20 19:09 CULTURE BLOOD [BC] Stat 06/19/20 19:15 CULTURE BLOOD [BC] Stat 06/19/20 21:00 cloZAPine 250 mg PO BEDTIME 06/19/20 23:26 Vital Signs [RC] Q4H 06/21/20 08:30 BASIC METABOLIC PANEL,BMP [CHEM] Timed VANCOMYCIN TROUGH [CHEM] Timed - Plan Plan:: #possible gram positive bacteremia - 1/2 blood cultures drawn on admit are positive for GPCC - given lack of any systemic stigmata of bacteremia suspect this is a contamination however pending results of repeat blood cultures will start vancomycin 1g q12 and obtain an echo #b/l heel and lateral malleolar stage 4 pressure ulcers - no evident cellulitis - pt follows w/ community wound care provider ELEONORA Duque - last seen on 06/10 and had sharp debridement - CT w/o osteo however this is not the most sensitive test - pt will require frequent wound re-evaluation and debridement - will defer need/timing for MRI to wound care provider - he will require an air mattress and offloading - will place heel protectors here - his halfway is grossly under- equipped to handle this per my discussion w/ Dr El - CM working on altern ative alf placement #psych - the underlying dx is unclear to me - it is apparent that pt's psych regimen is highly sedating - per external medical record this is being actively tapered - continue same for now #hx DVT / HT / seizure d/o - c/w home meds PPX - on Xarelto Full code
[2020-06-20] MEDS: CLOZAPINE 100 MG PO SCH (20:52)
[2020-06-21] MEDS: Levothyroxine 100 MCG Tab PO SCH (06:14)
[2020-06-21 08:51] LABS: ANION GAP 11.8 mEq/L (7-13); CHLORIDE,CL 109 mmol/L (98-107); SODIUM,NA 146 mmol/L (136-145)
[2020-06-21] MEDS: ClonazePAM 0.5 MG Tab PO SCH ×2 (09:00→20:47)
[2020-06-21] MEDS: Metoprolol Succinate 25 MG Tab.ER PO SCH (09:01)
[2020-06-21] MEDS: Rivaroxaban 10 MG Tab PO SCH (09:01)
[2020-06-21] MEDS: Valproic Acid 250 MG/5 ML Soln 5 ML UD Cup PO SCH ×3 (09:01→20:47)
[2020-06-21] MEDS: lamoTRIgine 100 MG Tab PO SCH ×2 (09:01→20:47)
[2020-06-21] MEDS: OLANZapine 5 MG Tab PO SCH (09:01)
[2020-06-21] MEDS ORDERED: Vancomycin 2 GM in Sodium Chloride 0.9% 500 ML IV SCH (10:00)
--- NOTE | 2020-06-21 10:36 | PCM.PN ---
- General Info Date of Service: 06/21/20 Admission Dx/Problem (Free Text): Not talkative. Great appetite. He is eating everything in front of him. Afebrile. - Patient Data Vitals - Most Recent: Last Vital Signs Temp 97.0 F 06/21/20 08:39 Pulse 79 06/21/20 09:01 Resp 18 06/21/20 08:39 BP 106/74 06/21/20 09:01 Pulse Ox 94 L 06/21/20 08:39 Weight - Most Recent: 161 lb 12.8 oz I&O - Last 24 Hours: Intake & Output 06/20/20 06/21/20 06/21/20 22:59 06:59 14:59 Intake Total 755 Balance 755 Lab Results Last 24 Hours: Laboratory Results - last 24 hr 06/21/20 Range/Units 08:26 Sodium 146 H (136-145) mmol/L Potassium 3.8 (3.5-5.1) mmol/L Chloride 109 H (98-107) mmol/L Carbon Dioxide 29 (21-32) mmol/L Anion Gap 11.8 (7-13) mEq/L BUN 11 (7-18) mg/dL Creatinine 0.70 (0.70-1.30) mg/dL Est Cr Clr Drug Dosing 117.95 mL/min Estimated GFR (MDRD) > 60 Glucose 94 (74-99) mg/dL Calcium 8.0 L (8.5-10.1) mg/dL Vancomycin Trough 8.8 L (10.0-20.0) ug/mL Simeon Results Last 24 Hours: Microbiology 06/18/20 12:11 Aerobic Blood Culture - Preliminary Blood - Venous - Lab Draw Anaerobic Blood Culture - Final 06/19/20 19:15 Aerobic Blood Culture - Preliminary Blood - Venous - Lab Draw NO GROWTH AFTER 1 DAY Anaerobic Blood Culture - Preliminary NO GROWTH AFTER 1 DAY 06/19/20 19:09 Aerobic Blood Culture - Preliminary Blood - Venous - Iv Start NO GROWTH AFTER 1 DAY Anaerobic Blood Culture - Final 06/18/20 11:56 Aerobic Blood Culture - Preliminary Blood - Venous - Iv Start NO GROWTH AFTER 2 DAYS Anaerobic Blood Culture - Final Med Orders - Current: Current Medications Acetaminophen (Acetaminophen 325 Mg Tab) 650 mg PO Q4H PRN PRN Reason: Pain (Mild 1-3)/fever Clonazepam (Clonazepam 0.5 Mg Tab) 1 mg PO BID [facility] Last Admin: 06/21/20 09:00 Dose: 1 mg Documented by: Vancomycin HCl 1,500 mg/ (Sodium Chloride) 500 mls @ 333.333 mls/hr IV Q12H [facility] Lamotrigine (Lamotrigine 100 Mg Tab) 100 mg PO BID [facility] Last Admin: 06/21/20 09:01 Dose: 100 mg Documented by: Levothyroxine Sodium (Levothyroxine 100 Mcg Tab) 100 mcg PO ACBREAKFAST [facility] Last Admin: 06/21/20 06:14 Dose: 100 mcg Documented by: Metoprolol Succinate (Metoprolol Succinate 25 Mg Tab.Er) 25 mg PO DAILY [facility] Last Admin: 06/21/20 09:01 Dose: 25 mg Documented by: Clozapine 100 Mg (TabletOwn Med) 250 mg PO BEDTIME [facility] Last Admin: 06/20/20 20:52 Dose: 250 mg Documented by: Olanzapine (Olanzapine 5 Mg Tab) 5 mg PO DAILY [facility] Last Admin: 06/21/20 09:01 Dose: 5 mg Documented by: Polyethylene Glycol (Polyethylene Glycol 3350 Powder 17 Gm Packet) 17 gm PO BID PRN PRN Reason: Constipation Rivaroxaban (Rivaroxaban 10 Mg Tab) 20 mg PO DAILY [facility] Last Admin: 06/21/20 09:01 Dose: 20 mg Documented by: Sodium Chloride (Sodium Chloride 0.9% 10 Ml Syringe) 10 ml FLUSH ASDIRECTED PRN PRN Reason: Keep Vein Open Last Admin: 06/18/20 13:10 Dose: 10 ml Documented by: Valproic Acid (Valproic Acid 250 Mg/5 Ml Soln 5 Ml Ud Cup) 250 mg PO TID [facility] Last Admin: 06/21/20 09:01 Dose: 250 mg Documented by: Discontinued Medications Clonazepam (Clonazepam 0.5 Mg Tab) 0.5 mg PO BEDTIME [facility] Last Admin: 06/18/20 21:11 Dose: 0.5 mg Documented by: Clonazepam (Clonazepam 0.5 Mg Tab) 1 mg PO ACBREAKFAST [facility] Clonazepam (Clonazepam 0.5 Mg Tab) 0.5 mg PO ONETIME ONE Stop: 06/18/20 22:29 Last Admin: 06/18/20 22:58 Dose: 0.5 mg Documented by: Sodium Chloride (Normal Saline) 500 mls @ 9,999 mls/hr IV .BOLUS [facility] Last Admin: 06/18/20 13:10 Dose: 50 mls/hr Documented by: Vancomycin HCl 1 gm/ Sodium (Chloride) 250 mls @ 167 mls/hr IV Q12HR [facility] Last Admin: 06/20/20 20:59 Dose: 167 mls/hr Documented by: Vancomycin HCl 2 gm/ Sodium (Chloride) 500 mls @ 250 mls/hr IV Q12H DOE - Exam Quality Assessment: No: Supplemental Oxygen General: Alert. No: No Acute Distress HEENT: Pupils Equal, Pupils Reactive Neck: Supple Lungs: Clear to Auscultation, Normal Respiratory Effort Cardiovascular: Regular Rate, Regular Rhythm, No Murmurs GI/Abdominal Exam: Normal Bowel Sounds, Soft, Non-Tender, No Distention Extremities: No Pedal Edema, Other (did not open dressings today) Skin: Warm, Dry Neurological: No New Focal Deficit Psy/Mental Status: Anxious - Patient Data Lab Results Last 24 hrs: Laboratory Results - last 24 hr 06/21/20 Range/Units 08:26 Sodium 146 H (136-145) mmol/L Potassium 3.8 (3.5-5.1) mmol/L Chloride 109 H (98-107) mmol/L Carbon Dioxide 29 (21-32) mmol/L Anion Gap 11.8 (7-13) mEq/L BUN 11 (7-18) mg/dL Creatinine 0.70 (0.70-1.30) mg/dL Est Cr Clr Drug Dosing 117.95 mL/min Estimated GFR (MDRD) > 60 Glucose 94 (74-99) mg/dL Calcium 8.0 L (8.5-10.1) mg/dL Vancomycin Trough 8.8 L (10.0-20.0) ug/mL Result Diagrams: 06/20/20 06:00 06/21/20 08:26 Simeon Results Last 24 hrs: Microbiology 06/18/20 12:11 Aerobic Blood Culture - Preliminary Blood - Venous - Lab Draw Anaerobic Blood Culture - Final 06/19/20 19:15 Aerobic Blood Culture - Preliminary Blood - Venous - Lab Draw NO GROWTH AFTER 1 DAY Anaerobic Blood Culture - Preliminary NO GROWTH AFTER 1 DAY 06/19/20 19:09 Aerobic Blood Culture - Preliminary Blood - Venous - Iv Start NO GROWTH AFTER 1 DAY Anaerobic Blood Culture - Final 06/18/20 11:56 Aerobic Blood Culture - Preliminary Blood - Venous - Iv Start NO GROWTH AFTER 2 DAYS Anaerobic Blood Culture - Final Sepsis Event Note - Evaluation Sepsis Screening Result: No Definite Risk - Focused Exam Vital Signs: Vital Signs Temp Pulse Pulse Resp BP BP BP 06/21/20 09:01 79 106/74 06/21/20 08:39 97.0 F 79 18 106/74 06/21/20 00:00 99.0 F 67 16 104/65 Pulse Ox 06/21/20 09:01 06/21/20 08:39 94 L 06/21/20 00:00 91 L - Problem List Review Problem List Initiated/Reviewed/Updated: No - My Orders Last 24 Hours: My Active Orders 06/21/20 10:00 Vancomycin 1,500 mg Sodium Chloride 0.9% [Normal Saline] 500 ml IV Q12H - Plan Plan:: #possible gram positive bacteremia - 2 blood cultures drawn on admit are positive for GPCC - given lack of any systemic stigmata of bacteremia suspect this is a contamination however pending results of repeat blood cultures will continue vancomycin - trough 8.8 >>> increase dose to 1.5g q12 #b/l heel and lateral malleolar stage 4 pressure ulcers - no evident cellulitis - pt follows w/ community wound care provider ELEONORA Duque - last seen on 06/10 and had sharp debridement - CT w/o osteo however this is not the most sensitive test - pt will require frequent wound re-evaluation and debridement - will defer need/timing for MRI to wound care provider - he will require an air mattress and offloading - will place heel protectors here - his nursing home is grossly under- equipped to handle this per my discussion w/ Dr El - CM working on alternative group home placement #psych - the underlying dx is unclear to me - it is apparent that pt's psych regimen is highly sedating - per external medical record this is being actively tapered - continue same for now #hx DVT / HT / seizure d/o - c/w home meds PPX - on Xarelto Full code
[2020-06-21] MEDS: CLOZAPINE 100 MG PO SCH (23:26)
[2020-06-22] MEDS: Levothyroxine 100 MCG Tab PO SCH (06:12)
[2020-06-22] MEDS: ClonazePAM 0.5 MG Tab PO SCH ×2 (08:24→21:00)
[2020-06-22] MEDS: Metoprolol Succinate 25 MG Tab.ER PO SCH (08:24)
[2020-06-22] MEDS: OLANZapine 5 MG Tab PO SCH (08:24)
[2020-06-22] MEDS: lamoTRIgine 100 MG Tab PO SCH ×2 (08:24→21:00)
[2020-06-22] MEDS: Rivaroxaban 10 MG Tab PO SCH (08:24)
[2020-06-22] MEDS: Valproic Acid 250 MG/5 ML Soln 5 ML UD Cup PO SCH ×3 (08:25→21:01)
--- NOTE | 2020-06-22 10:19 | PCM.PN ---
- General Info Date of Service: 06/22/20 Admission Dx/Problem (Free Text): Clinically unchanged. Afebrile. Great appetite. - Patient Data Vitals - Most Recent: Last Vital Signs Temp 97.8 F 06/22/20 08:38 Pulse 81 06/22/20 08:38 Resp 20 06/22/20 08:38 BP 129/79 06/22/20 08:38 Pulse Ox 97 06/22/20 08:38 Weight - Most Recent: 161 lb 12.8 oz I&O - Last 24 Hours: Intake & Output 06/21/20 06/22/20 06/22/20 21:59 06:59 14:59 Intake Total Balance Simeon Results Last 24 Hours: Microbiology 06/18/20 12:11 Aerobic Blood Culture - Final Blood - Venous - Lab Draw Staphylococcus Auricularis Staphylococcus Epidermidis Anaerobic Blood Culture - Final 06/18/20 11:56 Aerobic Blood Culture - Preliminary Blood - Venous - Iv Start NO GROWTH AFTER 3 DAYS Anaerobic Blood Culture - Final 06/19/20 19:15 Aerobic Blood Culture - Preliminary Blood - Venous - Lab Draw NO GROWTH AFTER 2 DAYS Anaerobic Blood Culture - Preliminary NO GROWTH AFTER 2 DAYS 06/19/20 19:09 Aerobic Blood Culture - Preliminary Blood - Venous - Iv Start NO GROWTH AFTER 2 DAYS Anaerobic Blood Culture - Final Med Orders - Current: Current Medications Acetaminophen (Acetaminophen 325 Mg Tab) 650 mg PO Q4H PRN PRN Reason: Pain (Mild 1-3)/fever Clonazepam (Clonazepam 0.5 Mg Tab) 1 mg PO BID [facility] Last Admin: 06/22/20 08:24 Dose: 1 mg Documented by: Lamotrigine (Lamotrigine 100 Mg Tab) 100 mg PO BID [facility] Last Admin: 06/22/20 08:24 Dose: 100 mg Documented by: Levothyroxine Sodium (Levothyroxine 100 Mcg Tab) 100 mcg PO ACBREAKFAST [facility] Last Admin: 06/22/20 06:12 Dose: 100 mcg Documented by: Metoprolol Succinate (Metoprolol Succinate 25 Mg Tab.Er) 25 mg PO DAILY [facility] Last Admin: 06/22/20 08:24 Dose: 25 mg Documented by: Clozapine 100 Mg (TabletOwn Med) 250 mg PO BEDTIME [facility] Last Admin: 06/21/20 23:26 Dose: 250 mg Documented by: Olanzapine (Olanzapine 5 Mg Tab) 5 mg PO DAILY [facility] Last Admin: 06/22/20 08:24 Dose: 5 mg Documented by: Polyethylene Glycol (Polyethylene Glycol 3350 Powder 17 Gm Packet) 17 gm PO BID PRN PRN Reason: Constipation Rivaroxaban (Rivaroxaban 10 Mg Tab) 20 mg PO DAILY [facility] Last Admin: 06/22/20 08:24 Dose: 20 mg Documented by: Sodium Chloride (Sodium Chloride 0.9% 10 Ml Syringe) 10 ml FLUSH ASDIRECTED PRN PRN Reason: Keep Vein Open Last Admin: 06/18/20 13:10 Dose: 10 ml Documented by: Valproic Acid (Valproic Acid 250 Mg/5 Ml Soln 5 Ml Ud Cup) 250 mg PO TID [facility] Last Admin: 06/22/20 08:25 Dose: 250 mg Documented by: Discontinued Medications Clonazepam (Clonazepam 0.5 Mg Tab) 0.5 mg PO BEDTIME [facility] Last Admin: 06/18/20 21:11 Dose: 0.5 mg Documented by: Clonazepam (Clonazepam 0.5 Mg Tab) 1 mg PO ACBREAKFAST [facility] Clonazepam (Clonazepam 0.5 Mg Tab) 0.5 mg PO ONETIME ONE Stop: 06/18/20 22:29 Last Admin: 06/18/20 22:58 Dose: 0.5 mg Documented by: Sodium Chloride (Normal Saline) 500 mls @ 9,999 mls/hr IV .BOLUS [facility] Last Admin: 06/18/20 13:10 Dose: 50 mls/hr Documented by: Vancomycin HCl 1 gm/ Sodium (Chloride) 250 mls @ 167 mls/hr IV Q12HR [facility] Last Admin: 06/21/20 12:47 Dose: Not Given Documented by: Vancomycin HCl 2 gm/ Sodium (Chloride) 500 mls @ 250 mls/hr IV Q12H [facility] Vancomycin HCl 1,500 mg/ (Sodium Chloride) 500 mls @ 333.333 mls/hr IV Q12H [facility] Last Admin: 06/21/20 23:20 Dose: 333.333 mls/hr Documented by: - Exam Quality Assessment: No: Supplemental Oxygen General: Alert, Cooperative, Other (somnolent) HEENT: Pupils Equal, Pupils Reactive Neck: Supple Lungs: Clear to Auscultation, Normal Respiratory Effort Cardiovascular: Regular Rate, Regular Rhythm, No Murmurs Back Exam: Normal Inspection Extremities: No Pedal Edema Skin: Warm, Dry Wound/Incisions: Other (b/l heel and lateral malleolar stage 3/unstagable decubitis) Neurological: No New Focal Deficit Psy/Mental Status: Depressed (affect) - Patient Data Result Diagrams: 06/20/20 06:00 06/21/20 08:26 Simeon Results Last 24 hrs: Microbiology 06/18/20 12:11 Aerobic Blood Culture - Final Blood - Venous - Lab Draw Staphylococcus Auricularis Staphylococcus Epidermidis Anaerobic Blood Culture - Final 06/18/20 11:56 Aerobic Blood Culture - Preliminary Blood - Venous - Iv Start NO GROWTH AFTER 3 DAYS Anaerobic Blood Culture - Final 06/19/20 19:15 Aerobic Blood Culture - Preliminary Blood - Venous - Lab Draw NO GROWTH AFTER 2 DAYS Anaerobic Blood Culture - Preliminary NO GROWTH AFTER 2 DAYS 06/19/20 19:09 Aerobic Blood Culture - Preliminary Blood - Venous - Iv Start NO GROWTH AFTER 2 DAYS Anaerobic Blood Culture - Final Sepsis Event Note - Evaluation Sepsis Screening Result: No Definite Risk - Focused Exam Vital Signs: Vital Signs Temp Pulse Pulse Resp BP BP Pulse Ox 06/22/20 08:38 97.8 F 81 20 129/79 97 06/22/20 08:24 81 129/79 06/22/20 04:00 97.2 F 80 20 114/76 97 - Problem List Review Problem List Initiated/Reviewed/Updated: No - Plan Plan:: #possible gram positive bacteremia - 2 blood cultures drawn on admit are positive for two contaminant staph species - d/c vanco #b/l heel and lateral malleolar stage 4 pressure ulcers - no evident cellulitis - pt follows w/ community wound care provider ELEONORA Duque - last seen on 06/10 and had sharp debridement - CT w/o osteo however this is not the most sensitive test - pt will require frequent wound re-evaluation and debridement - will defer need/timing for MRI to wound care provider - he will require an air mattress and offloading - will place heel protectors here - his fpc is grossly under- equipped to handle this per my discussion w/ Dr El - CM working on alternative long winder tender placement #psych - the underlying dx is unclear to me - it is apparent that pt's psych regimen is highly sedating - per external medical record this is being actively tapered - last psych note reviewed again - medications are not prescribed correctly - lower klonopin to 0.5 bid and zyprexa from daily to QHS #hx DVT / HT / seizure d/o - c/w home meds PPX - on Xarelto Full code
[2020-06-22] MEDS: CLOZAPINE 100 MG PO SCH (21:02)
[2020-06-23] MEDS: Levothyroxine 100 MCG Tab PO SCH (06:41)
[2020-06-23 08:00] VITALS: BP 91/64
[2020-06-23] MEDS: ClonazePAM 0.5 MG Tab PO SCH (09:00)
[2020-06-23] MEDS: Rivaroxaban 10 MG Tab PO SCH (09:00)
[2020-06-23] MEDS: Valproic Acid 250 MG/5 ML Soln 5 ML UD Cup PO SCH (09:00)
[2020-06-23] MEDS: lamoTRIgine 100 MG Tab PO SCH (09:00)
[2020-06-23 09:02] VITALS: PULSE 68
[2020-06-23] MEDS: Metoprolol Succinate 25 MG Tab.ER PO SCH (09:02)
--- NOTE | 2020-06-23 09:35 | PCM.DCSUM1 ---
Discharge Summary - Hospital Course Free Text/Narrative:: 59M w/ pmh developmental delay, ALBERTINA, seizure d/o, hx DVT on Xarelto, DM2, possible bipolar d/o vs schizophrenia vs behavioral disregulation 05/13 his MR (unclear to me from the medical record) p/w worsening b/l heel stage 4 pressure ulcers - the residential at which he resides he is no longer able to care for him. Reportedly the pt has been increasingly bedbound - likely due to the sedating effects of his psychiatric regimen. #possible gram positive bacteremia - 04/12 blood cultures drawn on admit are positive for two contaminant staph species - d/c vanco #b/l heel and lateral malleolar stage 4 pressure ulcers - no evident cellulitis - pt follows w/ community wound care provider ELEONORA Duque - last seen on 06/10 and had sharp debridement - CT w/o osteo however this is not the most sensitive test - pt will require frequent wound re-evaluation and debridement - will defer need/timing for MRI to wound care provider - he will require an air mattress and offloading - will place heel protectors here - his residential is grossly under- equipped to handle this per my discussion w/ Dr El - pt will be transferred to a facility for care home care and wound care #psych - the underlying dx is unclear to me - it is apparent that pt's psych regimen is highly sedating - per external medical record this is being actively tapered - last psych note reviewed again - medications are not prescribed correctly - lower klonopin to 0.5 bid and zyprexa from daily to QHS #hx DVT / HT / seizure d/o - c/w home meds PPX - on Xarelto Full code - Discharge Data Discharge Date: 06/23/20 Discharge Disposition: DC/Tfer to [facility] Condition: Good - Referral to Home Health Primary Care Physician: Luba El MD - Patient Summary/Data Consults: Consultations 06/18/20 15:29 Consult to Cellars Supervisor [CONS] Routine - Discharge Plan *PRESCRIPTION DRUG MONITORING PROGRAM REVIEWED*: Not Applicable *COPY OF PRESCRIPTION DRUG MONITORING REPORT IN PATIENT MARIBELL: Not Applicable Home Medications: Home Meds Valproic Acid (As Sodium Salt) [Valproic Acid] 5 ml PO TID 09/14/19 [History] Levothyroxine [Synthroid] 100 mcg PO ACBREAKFAST 06/18/20 [History] Metoprolol Succinate [Toprol XL] 25 mg PO DAILY 06/18/20 [History] Rivaroxaban [Xarelto] 20 mg PO DAILY 06/18/20 [History] cloZAPine 250 mg PO BEDTIME 06/18/20 [History] clonazePAM [Clonazepam] 1 mg PO BID 06/18/20 [History] lamoTRIgine [Lamictal] 100 mg PO BID 06/18/20 [History] polyethylene glycoL 3350 [MiraLAX] 17 gm PO BID PRN 06/18/20 [History] Acetaminophen [Tylenol] 650 mg PO Q4H PRN tablet 06/23/20 [Rx] ClonazePAM [KlonoPIN] 0.5 mg PO BID tablet 06/23/20 [Rx] OLANZapine [ZyPREXA] 5 mg PO BEDTIME tablet 06/23/20 [Rx] - Discharge Summary/Plan Comment DC Time >30 min.: No - Patient Data Vitals - Most Recent: Last Vital Signs Temp 98.0 F 06/23/20 07:59 Pulse 68 06/23/20 09:02 Resp 20 06/23/20 07:59 BP 91/64 06/23/20 09:02 Pulse Ox 94 L 06/23/20 07:59 Weight - Most Recent: 161 lb 12.8 oz I&O - Last 24 hours: Intake & Output 06/22/20 06/23/20 06/23/20 22:59 06:59 14:59 Intake Total 780 50 Balance 780 50 NIDA Results - Last 24 hrs: Microbiology 06/19/20 19:15 Aerobic Blood Culture - Preliminary Blood - Venous - Lab Draw NO GROWTH AFTER 3 DAYS Anaerobic Blood Culture - Preliminary NO GROWTH AFTER 3 DAYS 06/19/20 19:09 Aerobic Blood Culture - Preliminary Blood - Venous - Iv Start NO GROWTH AFTER 3 DAYS Anaerobic Blood Culture - Final 06/18/20 11:56 Aerobic Blood Culture - Preliminary Blood - Venous - Iv Start NO GROWTH AFTER 4 DAYS Anaerobic Blood Culture - Final 06/18/20 12:11 Aerobic Blood Culture - Final Blood - Venous - Lab Draw Staphylococcus Auricularis Staphylococcus Epidermidis Anaerobic Blood Culture - Final Med Orders - Current: Current Medications Acetaminophen (Acetaminophen 325 Mg Tab) 650 mg PO Q4H PRN PRN Reason: Pain (Mild 1-3)/fever Clonazepam (Clonazepam 0.5 Mg Tab) 0.5 mg PO BID [facility] Last Admin: 06/23/20 09:00 Dose: 0.5 mg Documented by: Lamotrigine (Lamotrigine 100 Mg Tab) 100 mg PO BID [facility] Last Admin: 06/23/20 09:00 Dose: 100 mg Documented by: Levothyroxine Sodium (Levothyroxine 100 Mcg Tab) 100 mcg PO ACBREAKFAST [facility] Last Admin: 06/23/20 06:41 Dose: 100 mcg Documented by: Metoprolol Succinate (Metoprolol Succinate 25 Mg Tab.Er) 25 mg PO DAILY [facility] Last Admin: 06/23/20 09:02 Dose: 25 mg Documented by: Clozapine 100 Mg (TabletOwn Med) 250 mg PO BEDTIME [facility] Last Admin: 06/22/20 21:02 Dose: 250 mg Documented by: Olanzapine (Olanzapine 5 Mg Tab) 5 mg PO BEDTIME [facility] Polyethylene Glycol (Polyethylene Glycol 3350 Powder 17 Gm Packet) 17 gm PO BID PRN PRN Reason: Constipation Rivaroxaban (Rivaroxaban 10 Mg Tab) 20 mg PO DAILY [facility] Last Admin: 06/23/20 09:00 Dose: 20 mg Documented by: Sodium Chloride (Sodium Chloride 0.9% 10 Ml Syringe) 10 ml FLUSH ASDIRECTED PRN PRN Reason: Keep Vein Open Last Admin: 06/18/20 13:10 Dose: 10 ml Documented by: Valproic Acid (Valproic Acid 250 Mg/5 Ml Soln 5 Ml Ud Cup) 250 mg PO TID [facility] Last Admin: 06/23/20 09:00 Dose: 250 mg Documented by: Discontinued Medications Clonazepam (Clonazepam 0.5 Mg Tab) 0.5 mg PO BEDTIME [facility] Last Admin: 06/18/20 21:11 Dose: 0.5 mg Documented by: Clonazepam (Clonazepam 0.5 Mg Tab) 1 mg PO ACBREAKFAST [facility] Clonazepam (Clonazepam 0.5 Mg Tab) 1 mg PO BID [facility] Last Admin: 06/22/20 08:24 Dose: 1 mg Documented by: Clonazepam (Clonazepam 0.5 Mg Tab) 0.5 mg PO ONETIME ONE Stop: 06/18/20 22:29 Last Admin: 06/18/20 22:58 Dose: 0.5 mg Documented by: Sodium Chloride (Normal Saline) 500 mls @ 9,999 mls/hr IV .BOLUS [facility] Last Admin: 06/18/20 13:10 Dose: 50 mls/hr Documented by: Vancomycin HCl 1 gm/ Sodium (Chloride) 250 mls @ 167 mls/hr IV Q12HR [facility] Last Admin: 06/21/20 12:47 Dose: Not Given Documented by: Vancomycin HCl 2 gm/ Sodium (Chloride) 500 mls @ 250 mls/hr IV Q12H [facility] Vancomycin HCl 1,500 mg/ (Sodium Chloride) 500 mls @ 333.333 mls/hr IV Q12H [facility] Last Admin: 06/21/20 23:20 Dose: 333.333 mls/hr Documented by: Olanzapine (Olanzapine 5 Mg Tab) 5 mg PO DAILY [facility] Last Admin: 06/22/20 08:24 Dose: 5 mg Documented by: - Exam Quality Assessment: Denies: Supplemental Oxygen General: Reports: Alert HEENT: Reports: Pupils Equal, Pupils Reactive Neck: Reports: Supple Lungs: Reports: Clear to Auscultation, Normal Respiratory Effort Cardiovascular: Reports: Regular Rate, Regular Rhythm, No Murmurs GI/Abdominal Exam: Normal Bowel Sounds, Soft, Non-Tender, No Distention Extremities: No Pedal Edema Skin: Reports: Warm, Dry Wound/Incisions: Reports: Other (b/l heel stage 3 ulcers w/ central eschar, b/l lateral malleolus unstagable ulcers - unchanged - no associated cellulitis - refer to pictures in chart) Neurological: Reports: No New Focal Deficit Psy/Mental Status: Reports: Depressed (affect)
[2020-06-23] MEDS ORDERED: OLANZapine 5 MG Tab PO SCH (21:00)
== END 2020-06-23 10:30 | DRG 594 ==
LOC: DL.ED 10:24 → DL.MS 15:09 → OBSVTOIN 06-19 18:43
PROVIDERS: ADMIT Internal Medicine; ATTEND Internal Medicine
DX: L89.624 Pressure ulcer of left heel, stage 4 (principal); L89.614 Pressure ulcer of right heel, stage 4; E46 Unspecified protein-calorie malnutrition; G47.33 Obstructive sleep apnea (adult) (pediatric); G40.909 Epilepsy, unspecified, not intractable, without status epilepticus; Z86.718 Personal history of other venous thrombosis and embolism; Z86.711 Personal history of pulmonary embolism; Z79.01 Long term (current) use of anticoagulants; E11.9 Type 2 diabetes mellitus without complications; F31.9 Bipolar disorder, unspecified; F20.9 Schizophrenia, unspecified; R62.50 Unspecified lack of expected normal physiological development in childhood; L89.150 Pressure ulcer of sacral region, unstageable; Z87.820 Personal history of traumatic brain injury; Z79.890 Hormone replacement therapy; Z79.899 Other long term (current) drug therapy; Z88.1 Allergy status to other antibiotic agents; Z88.8 Allergy status to other drugs, medicaments and biological substances; Z88.6 Allergy status to analgesic agent; H54.7 Unspecified visual loss; E78.00 Pure hypercholesterolemia, unspecified; K59.09 Other constipation; R32 Unspecified urinary incontinence; F41.9 Anxiety disorder, unspecified; F91.9 Conduct disorder, unspecified; E03.9 Hypothyroidism, unspecified; L89.524 Pressure ulcer of left ankle, stage 4; L89.514 Pressure ulcer of right ankle, stage 4; I10 Essential (primary) hypertension; Z20.822 Contact with and (suspected) exposure to COVID-19
CPT/HCPCS: 0240U; 36415; 71045; 72192; 73700-50; 80048; 80053; 80202; 81003; 83605; 85025; 85027; 87040; 87077; 87186; 99285-25; A9270-GY; G0378; J3370; J7040; J7050; U0002